=== PATIENT | female | born 1940 | race Caucasian/White ===

== ENCOUNTER → 2016-09-24 17:18 | Emergency (ER) | payer MEDICARE ==
[~2016-09-24 17:18] MED LIST: Tetan/Diph/Pertus SYR(Tdap)* 0.5 ML SYR(BOOSTRIX) use SYR IM ONE
[2016-09-24 17:28] VITALS: BP 202/93
--- NOTE | 2016-09-24 17:38 | UC ---
UC General HPI - HPI Summary HPI Summary: complaint of stepping on a coty nail with right foot today tetanus not UTD no bleeding or pain at this time pt and son states that whenever she is in a medical office her pulse and blood pressure increase - History of Current Complaint Chief Complaint: UCWounds Stated Complaint: STEPPED ON NAIL Time Seen by Provider: 09/24/16 17:24 Hx Obtained From: Patient - Allergy/Home Medications Allergies/Adverse Reactions: Allergies Allergy/AdvReac Type Severity Reaction Status Date / Time Unable to Obtain Allergy Verified 09/24/16 17:28 Home Medications: Home Medications Aspirin [Eql Aspirin Low Dose] 81 mg PO 09/24/16 [History] PMH/Surg Hx/FS Hx/Imm Hx Previously Healthy: Yes Cardiovascular History: Hypertension - Surgical History Surgical History: None - Family History Known Family History: Negative: Cardiac Disease, Hypertension, Diabetes - Social History Occupation: Retired Lives: With Family Alcohol Use: Rare Substance Use Type: None Smoking Status (MU): Heavy Every Day Tobacco Smoker Cessation Counseling: Patient Advised to Stop Review of Systems Constitutional: Negative Skin: Other - puncture woud right foot Eyes: Negative ENT: Negative Respiratory: Negative Cardiovascular: Negative Gastrointestinal: Negative Genitourinary: Negative Motor: Negative Neurovascular: Negative Musculoskeletal: Negative Neurological: Negative Psychological: Negative All Other Systems Reviewed And Are Negative: Yes Physical Exam Triage Information Reviewed: Yes Appearance: No Pain Distress, Well-Nourished, Thin Vital Signs: Initial Vital Signs Temp 98.9 F 09/24/16 17:24 Pulse 120 09/24/16 17:24 Resp 18 09/24/16 17:24 BP 202/93 09/24/16 17:24 Pulse Ox 95 09/24/16 17:24 Vital Signs Reviewed: Yes Eyes: Positive: Conjunctiva Clear ENT: Positive: Pharynx normal, TMs normal Neck: Positive: No Lymphadenopathy Respiratory: Positive: Lungs clear, Normal breath sounds, No respiratory distress, No accessory muscle use Cardiovascular: Positive: No Murmur, Pulses Normal, Tachycardia Musculoskeletal: Positive: No Edema Neurological: Positive: Alert Psychological Exam: Normal Skin: Positive: Other - right foot- puncture wound over 1st metatarsal joint- no erythema or exudate Course/Dx - Course Course Of Treatment: exam completed. VSS after sitting in room for 20 minutes - Differential Dx - Multi-Symptom Differential Diagnoses: Other - puncture wound, need for tetanus immunization Provider Diagnoses: puncture wound Discharge - Discharge Plan Condition: Stable Disposition: HOME Patient Education Materials: Puncture Wound (ED), Diphtheria/Acellular Pertussis/Tetanus Booster Vaccine (By injection) Referrals: [facility] – [place] [facility] [Outside] Additional Instructions: Increase fluids and rest Take acetaminophen for fever or pain Please review your discharge instructions. If your symptoms do not improve please call your primary care provider or return to urgent care. Your blood pressure is elevated. Please contact your primary care provider within 1 -4 weeks for further evaluation.
== END | disposition home or self-care (01) ==
LOC: UCEAST 17:18
DX: S91.331A Puncture wound without foreign body, right foot, initial encounter (principal); W22.8XXA Striking against or struck by other objects, initial encounter; Y93.9 Activity, unspecified; Y92.9 Unspecified place or not applicable; Y99.9 Unspecified external cause status; Z23 Encounter for immunization; I10 Essential (primary) hypertension; Z72.0 Tobacco use
CPT/HCPCS: 90471; 90715; 99201; G0463

== ENCOUNTER 2017-07-25 16:23 | Inpatient (IN) | payer MEDICARE ==
--- NOTE | 2017-07-25 16:52 | RAD ---
HISTORY: Shortness of breath COMPARISONS: None VIEWS: 1: frontal portable view of the chest at 4:46 PM FINDINGS: LINES AND TUBES: None. CARDIOMEDIASTINAL SILHOUETTE: The cardiac silhouette is mildly enlarged. The cardiomediastinal silhouette is otherwise normal for portable technique. PLEURA: The costophrenic angles are sharp. No pleural abnormalities are noted. LUNG PARENCHYMA: There is patchy alveolar opacification lung bases bilaterally. There is prominence of the central pulmonary vessels which appear. ABDOMEN: The upper abdomen is clear. There is no subphrenic gas. BONES AND SOFT TISSUES: No bone or soft tissue abnormalities are noted. IMPRESSION: PULMONARY VASCULAR CONGESTION WITH MILD CARDIOMEGALY AND BIBASILAR ATELECTASIS VERSUS EARLY CONSOLIDATION.
[2017-07-25 17:03] LABS: ABS Basophils 0 10^3/ul (0-0.2); ABS Eosinophils 0 10^3/ul (0-0.6); ABS Lymphocytes 1.5 10^3/ul (1.0-4.8); ABS Monocytes 0.5 10^3/ul (0-0.8); ABS Neutrophils 6.5 10^3/ul (1.5-7.7); ABS Nucleated RBC 0 10^3/ul; Eosinophil % 0.4 % (0-6); Hematocrit 44 % (35-47); Hemoglobin 14.6 g/dl (12.0-16.0); Lymphocyte % 17.4 % (25-47); Mean Corpuscular HGB Conc 33 g/dl (31-36); Mean Corpuscular Hemoglobin 31 pg (27-31); Mean Corpuscular Volume 93 fL (80-97); Mean Platelet Volume 7.7 um3 (7.4-10.4); Nucleated Red Blood Cells % 0.1; Platelet Count 199 10^3/ul (150-450); Red Blood Count 4.67 10^6/ul (4.0-5.4); Red Cell Distribution Width 15 % (10.5-15); White Blood Count 8.6 10^3/ul (3.5-10.8)
[2017-07-25 17:26] LABS: EGFR Non-African American 45.8 (>60)
[2017-07-25] MEDS ORDERED: Nitroglycerin 2% OINT* 1 GM PAK TOPICAL ONE (18:20)
[2017-07-25] MEDS ORDERED: Furosemide IV* 10 MG/ML VIAL (40 MG) IV SLOW PU ONE (18:20)
[2017-07-25] MEDS ORDERED: Acetaminophen TAB* 325 MG PO PRN (18:51)
[2017-07-25] MEDS ORDERED: Al Hydrox/Mg Hydrox/Simet LIQ* 30 ML UDC PO PRN (18:51)
[2017-07-25] MEDS: Metoprolol Tartrate TAB* 25 MG PO SCH (21:24)
[2017-07-25] MEDS: Enalapril TAB* 5 MG PO SCH (21:25)
[2017-07-25] MEDS: Heparin VIAL(*) 5000 UNITS/ML VIAL (FIVE THOUSAND) SUBCUT SCH (21:28)
--- NOTE | 2017-07-25 21:28 | HP ---
HISTORY AND PHYSICAL: DATE OF ADMISSION: 07/25/17 TIME OF ADMISSION: 7:00 p.m. PRIMARY CARE PHYSICIAN: None. CHIEF COMPLAINT: Feet swelling. HISTORY OF PRESENT ILLNESS: This is a 76-year-old female with no known past medical history, who has not seen a PCP for 15 years. She went to the [facility] today for feet edema that has been going on for 2 weeks and she was sent to the emergency department. She states that she had been in her usual state of health until 2 weeks ago when she had bilateral lower extremity edema from her toes to her ankles and leg heaviness. She does weigh herself regularly and so she has not gained any weight. Her usual weight is approximately 140 pounds and that has been stable recently. She states she is able to sleep on just 1 pillow and that has also not changed recently. She has never been limited in her exercise capacity by shortness of breath and that also has not changed over the past 2 weeks, however, she does note that she has had decreased ability to walk for distances due to leg heaviness, however, never due to shortness of breath. She denies having chest pain in the past 2 weeks nor has she ever had chest pain with exertion even prior to 2 weeks ago. She does believe that she had a viral illness approximately 2 weeks ago that was associated with some lethargy and her , she believes is ill now, however, she denies any recent cough, fevers, runny nose, congestion, headache, abdominal bloating, nausea or vomiting. PAST MEDICAL HISTORY: 1. Anxiety. 2. Polio at age 12. HOME MEDICATIONS: Aspirin 81 mg at bedtime. FAMILY HISTORY: She believes her mom had heart troubles, but lived until her late 70s. SOCIAL HISTORY: She lives in [place] with her . She is a current smoker and smokes 1 pack a day and has done so for the past 30 years. She works at the [employer]. REVIEW OF SYSTEMS: As per the HPI, the remaining 12-point review of systems is negative. PHYSICAL EXAMINATION GENERAL: Alert, well-appearing female, in no distress. I note her respiratory rate to be closer to be 20, and not 30. She is able to speak in full sentences and is using no accessory respiratory muscles. VITAL SIGNS: Temperature 98.8 degrees, heart rate 115, respiratory rate 30, pulse ox 97% on 2 L, and blood pressure 169/93. HEENT: Pupils are equal, round, and reactive to light, shows no nystagmus. Her oral mucosa is moist. She has no pharyngeal exudates; however, she does have a purple macule on the posterior pharynx. NECK: I cannot see JVP elevation at 45 degrees. She has no cervical or supraclavicular lymphadenopathy. She has a 2-cm fungating mass over her left clavicle with an excoriated surface. CHEST: Tachycardic. No murmurs. No appreciable S3 or S4. PMI is laterally displaced. LUNGS: Without rhonchi or rales. ABDOMEN: Soft, nontender, and nondistended. Liver is nonpalpable. EXTREMITIES: She has 1+ lower extremity edema on the dorsal feet and to the mid linares. DIAGNOSTIC STUDIES/LAB DATA: Sodium 137, potassium 3.8, chloride 100, bicarb 25, anion gap 12, BUN 30, creatinine 1.15, glucose 132, lactate 1.6, AST 44, ALT 50, alk phos 58, troponin 0.07. Chest x-ray: Pulmonary vascular congestion with mild cardiomegaly, and bibasilar atelectasis versus early consolidation. EKG: Sinus tachycardia at 117, left axis deviation, LVH is noted. T-wave inversions in V5 and V6. ASSESSMENT AND PLAN: This is a 76-year-old female, who has not seen a physician in 15 years and has been healthy to her knowledge, who presents with 2 weeks of feet edema and is found to have pulmonary vascular congestion and elevated troponin, elevated blood pressure, sinus tachycardia, and hypoxia. 1. Bilateral lower extremity edema. Based on her constellation of symptoms on presentation, I suspect that this is most likely a reflection of volume overload in the setting of new onset heart failure. She also has some pulmonary vascular congestion that likely coincides with heart failure as well as what seems like untreated hypertension, which may have been the underlying etiology of her syndrome of heart failure. She just received Lasix in the emergency department. I am going to continue IV Lasix and start a low-dose CHAU inhibitor for afterload reduction as well as a beta-garcia for my suspicion of new onset heart failure. 2. Troponin elevation. It is elevated to 0.07. However, she notes no chest pain at any time. I suspect this troponin elevation is from volume overload as well as hypertensive urgency causing a demand and I will continue to trend her troponins over the night. 3. Acute hypoxic respiratory failure. This is most likely related to decompensated heart failure and pulmonary edema as seen on her chest x-ray. At this point, she is stable on 2 L and we will try to wean this down as able as she is diuresed. 4. Hypertensive urgency. As mentioned above, I am starting her on a low-dose CHAU inhibitor and low-dose beta-garcia. I would like to remove the nitro patch that she currently has on. 5. Hyponatremia. This appears to be hypervolemic hyponatremia and I would expect it to improve with IV diuresis. 6. Left clavicular mass. This is quite concerning for basal cell carcinoma to me. This should be followed up closely as an outpatient. 7. Acute kidney injury. I suspect this is related to vascular congestion and should also improve with diuresis. 8. Tobacco abuse. Nicotine inhaler p.r.n. 9. DVT prophylaxis. Heparin subcutaneously. 10. Diet. Unrestricted. 11. Code status. Full code. 12. Admit to telemetry. [id number] #: [id number] MTDD
[2017-07-26] MEDS ORDERED: Mouth Piece, Nicotine* 1 EACH CARTRIDGE INH ONE (02:00)
[2017-07-26] MEDS ORDERED: Nicotine Inhaler* 10 MG AMP Q2H PRN CRAVING INH (02:00)
[2017-07-26] MEDS: Metoprolol Tartrate TAB* 25 MG PO SCH ×3 (03:43→20:50)
[2017-07-26] MEDS: Heparin VIAL(*) 5000 UNITS/ML VIAL (FIVE THOUSAND) SUBCUT SCH ×3 (05:53→20:53)
[2017-07-26 06:09] LABS: ABS Basophils 0 10^3/ul (0-0.2); ABS Eosinophils 0.1 10^3/ul (0-0.6); ABS Lymphocytes 1.3 10^3/ul (1.0-4.8); ABS Monocytes 0.5 10^3/ul (0-0.8); ABS Neutrophils 6.4 10^3/ul (1.5-7.7); ABS Nucleated RBC 0 10^3/ul; Eosinophil % 0.8 % (0-6); Hematocrit 43 % (35-47); Hemoglobin 14.1 g/dl (12.0-16.0); Lymphocyte % 15.6 % (25-47); Mean Corpuscular HGB Conc 33 g/dl (31-36); Mean Corpuscular Hemoglobin 31 pg (27-31); Mean Corpuscular Volume 94 fL (80-97); Mean Platelet Volume 7.4 um3 (7.4-10.4); Nucleated Red Blood Cells % 0; Platelet Count 185 10^3/ul (150-450); Red Blood Count 4.53 10^6/ul (4.0-5.4); Red Cell Distribution Width 15 % (10.5-15); White Blood Count 8.2 10^3/ul (3.5-10.8)
[2017-07-26 06:23] LABS: EGFR Non-African American 39.4 (>60)
[2017-07-26] MEDS: Enalapril TAB* 5 MG PO SCH ×2 (09:29→20:51)
[2017-07-26] MEDS: Furosemide IV* 10 MG/ML VIAL (40 MG) IV SCH (09:30)
--- NOTE | 2017-07-26 09:44 | RAD ---
INDICATION: Pain and swelling. COMPARISON: None TECHNIQUE: Duplex interrogation of the both lower extremities was performed. FINDINGS: Deep veins: The common femoral, great saphenous, profunda femoris, proximal, mid, and distal deep femoral, popliteal, posterior tibial, and peroneal veins are patent bilaterally. There is normal compressibility, augmentation, and phasic flow. Superficial veins: There are no findings of superficial thrombophlebitis. Popliteal fossa:There is a complex 6.5 x 2.3 x 3.4 similar right popliteal cyst. There is no left popliteal cyst. Soft tissues:There are no soft tissue abnormalities. IMPRESSION: A BILATERAL EXAMINATION DEMONSTRATES NO EVIDENCE OF ACUTE DEEP VENOUS THROMBOSIS. THERE IS A RIGHT-SIDED POPLITEAL CYST.
--- NOTE | 2017-07-26 13:08 | ECHO ---
Patient: PABLO MOISE [facility] Rec#: [id number] : 1940 Date: 07/26/2017 Age: 76y Height: 162.56 cm / 64.0 in Weight: 61.69 kg / 136.0 lbs Sex: F BSA: 1.66 Room#: [facility] Admit Date#: 07/25/2017 Type: Inpatient Referring: Waleska Cheema MD Reading: Deanna Perez MD Clinical Radiologist: Mar Vásquez [facility] Transthoracic Echocardiogram Indication: CHF BP: 126/83 HR: 100 Rhythm: NSR Findings History: Recent lower extremity edema,smoker. Technical Comments: The study is technically limited due to the patient's smoking history. Completed at 1208. Left Ventricle: The left ventricular chamber size is normal. Mild concentric left ventricular hypertrophy is observed. There is global hypokinesis of the left ventricle with minor regional variation. There is severely decreased left ventricular systolic function. The estimated ejection fraction is 25-30%. Abnormal left ventricular diastolic function is observed.summation of E and A waves. Left Atrium: The left atrium is mildly dilated. Right Ventricle: Moderator Band present. The right ventricle is mildly dilated. The right ventricular global systolic function is severely reduced. Right Atrium: The right atrium is mildly dilated. Aortic Valve: The aortic valve structure is not well visualized. There is no evidence of aortic regurgitation. There is no evidence of aortic stenosis. Mitral Valve: The mitral valve leaflets are mildly thickened. Mild mitral leaflet calcification is visualized. Mitral valve leaflet mobility is moderately restricted. There is mild mitral regurgitation. Possibly greater. The mitral regurgitant jet is laterally directed.No color placed in images that would determine in posteriorly directed as well (long axis and 3 chamber views). There is no evidence of mitral stenosis. Tricuspid Valve: The tricuspid valve leaflets are normal. There is mild tricuspid regurgitation. The right ventricular systolic pressure is estimated at 46 mmHg. There is evidence of moderate pulmonary hypertension. There is no tricuspid stenosis. Pulmonic Valve: The pulmonic valve appears normal. There is no evidence of pulmonic regurgitation. There is no pulmonic stenosis. Pericardium: A trivial pericardial effusion is visualized. There are no signs of significant hemodynamic compromise. Aorta: There is no dilatation of the ascending aorta. The aortic arch is not well visualized. There is no dilation of the aortic root. Pulmonary Artery: The main pulmonary artery appears normal. Venous: The inferior vena cava is dilated. There is no change in the dimension of the inferior vena cava with respiration consistent with markedly increased right atrial pressure. Conclusions The study is technically limited due to the patient's smoking history. Mild concentric left ventricular hypertrophy is observed. There is global hypokinesis of the left ventricle with minor regional variation. The estimated ejection fraction is 25-30%. Abnormal left ventricular diastolic function is observed. The right ventricular global systolic function is severely reduced. There is mild mitral regurgitation, eccentric jet, possibly greater. There is mild tricuspid regurgitation. PA pressure is estimated at 46 mmHg. No prior study to compare. Measurements Name Value Normal Range RVIDd (AP) 2D 2.9 cm (0.9 - 2.6) RVDdMajor (2D) 3.4 cm (2.2 - 4.4) RAd ISD 4CH 5.8 cm (3.4 - 4.9) RA (A4C)W 3.5 cm (2.9 - 4.6) IVSd (2D) 1.2 cm (0.6 - 1) LVPWd (2D) 1.2 cm (0.6 - 1) LVIDd (2D) 5.4 cm (3.6 - 5.4) LVIDs (2D) 4.8 cm - LV FS (2D) 13 % (25 - 45) Aortic Annulus 1.9 cm (1.4 - 2.6) Ao root diameter (2D) 2.6 cm (2.1 - 3.5) Ascending Ao 2.8 cm (2.1 - 3.4) LA dimension (AP) 2D 4.3 cm (2.3 - 3.8) LAd ISD 4CH 6.4 cm (2.9 - 5.3) LA ISD 4CH W 4 cm (2.5 - 4.5) Name Value Normal Range MV E-wave Vmax 0.7 m/sec - MV deceleration time 81 msec - MV A-wave Vmax 0.9 m/sec - MV E:A ratio 0.73 ratio - LV septal e' Vmax 0.02 m/sec - LV lateral e' Vmax 0.03 m/sec - LV E:e' septal ratio 35 ratio - LV E:e' lateral ratio 23.33 ratio - Name Value Normal Range AV Vmax 1.1 m/sec - AV VTI 17.6 cm - AV peak gradient 4.68 mmHg - AV mean gradient 2.14 mmHg - LVOT Vmax 0.6 m/sec - LVOT VTI 8.5 cm - LVOT peak gradient 1.5 mmHg - LVOT mean gradient 0.63 mmHg - Name Value Normal Range TR Vmax 2.8 m/sec - TR peak gradient 31 mmHg - RAP 15 mmHg - RVSP 46 mmHg - IVC diameter 2.8 cm - Name Value Normal Range PV Vmax 0.4 m/sec - PV peak gradient 0.55 mmHg -
[2017-07-26 18:18] LABS: INR 0.95 (0.77-1.02)
--- NOTE | 2017-07-26 21:37 | CONS ---
CARDIOLOGY CONSULTATION: DATE OF CONSULT: 07/26/17 REASON FOR CONSULTATION: Newly diagnosed cardiomyopathy and elevated troponins. HISTORY OF PRESENT ILLNESS: Mrs. Boss is a 76-year-old smoker, who has not been to a doctor in 15 years. The patient was seen in the presence of her daughter. The patient estimates for about 6 months, she has not felt as well as her baseline. About 2 or 3 weeks ago, her had flu symptoms and she said she just felt very tired. She denied rhinorrhea, coughing, sputum production, fevers, chills, myalgias, diarrhea, or constipation, just fatigue. Her did have multiple flu-like signs. More recently over the last 1 to 2 weeks, the patient has noted her legs have been progressively swollen. She denies feeling winded, but her daughter states she was tachypneic talking to her on the phone. The patient has had diuretics in the hospital and her leg swelling has improved overnight. She has been on Oxygen for low O2 saturations. The patient denies orthopnea, sleeps on her stomach, no PND history. An echocardiogram done today showed an ejection fraction of 25% to 30% and her right ventricle was also dilated with severe right ventricular hypokinesis. Her valve function was significant for at least mild mitral insufficiency and her PA pressure was estimated at 46 mmHg. PAST MEDICAL HISTORY: The patient has a past medical history of active smoking , history of anxiety. She had polio at age 12. MEDICATIONS: She had no outpatient medications. Inpatient medications include: 1. Tylenol p.r.n. 2. Maalox p.r.n. 3. Vasotec 10 mg b.i.d. 4. Lasix 40 mg a day. 5. Subcutaneous heparin. 6. Lopressor 12.5 mg q.8 hours. 7. Nicotine inhaler. FAMILY HISTORY: Significant in that she has a brother, who just had a heart attack very recently. Her mother had a history of stroke in her 70s. SOCIAL HISTORY: Significant that she is an active smoker, a pack a day. She denies any alcohol intake. She has a supportive daughter, lives in [place] with her . 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 REVIEW OF SYSTEMS: See history of present illness. She sleeps flat on her stomach. No orthopnea. No PND. Chronic smoker's cough. Two week history of lower extremity edema, approximately 3 weeks ago increased in fatigue. She denies awareness of snoring or not breathing. She denies weight gain or weight loss, diarrhea or constipation, hematuria or dysuria. Although, she just has not felt well for the last 6 months, she has been able to work at [employer] at her usual level, although it sounds like it is not a job with high physical stress. All other review of systems was unremarkable. The patient denies pain in her legs walking, but they fatigue easily. PHYSICAL EXAM: The patient is 5 feet 4 inches, weighs 136 pounds with a BMI of 33. Vitals on arrival: Blood pressure 173/106 and a pulse of 115. Currently after diuresis, blood pressure 123/63, pulse is 85, oxygen saturation 88% on room air, 94% on 2 L nasal cannula, respiratory rate is 18. General Appearance : Chronically ill-appearing woman, oxygen prongs on. She was lying at 5 degrees with one pillow, appeared comfortable. Psychologically, pleasant and cooperative. Neurologically, awake, alert, and oriented to person, place, and time. Cranial nerves II through XII intact. Grossly normal sensory and motor function in the upper and lower extremities as examined in the bed. Skin: Changes consistent with age and long history of smoking. No cyanosis. She did have a skin lesion above the left clavicle about the size of a quarter of concern for possible malignancy versus dysplastic nevi. HEENT: Pupils are equal and round. Mucous membranes moist. Neck: Without thyromegaly or lymphadenopathy appreciated. Palpable carotid pulses without audible bruits. Breath sounds showed decreased inspiration, diffuse wheezing. Coronary: S1, S2 regular with distant heart sounds and soft systolic murmur heard at the left lower sternal border. Abdomen: Flat, active bowel sounds, soft, nontender. No hepatosplenomegaly or masses. No audible bruits. Radial pulses were strong and symmetrical. She has easily palpable femoral pulses free of bruits, but distal extremities are hard to get pulses. Distal pulses hard to palpate above the distal extremities are lukewarm with minimal edema. DIAGNOSTIC STUDIES/LAB DATA: Labs: White count 9.2, hemoglobin 14, hematocrit 43, platelets 185. Sodium 142, potassium 3.4, chloride 102, bicarb 33, BUN 34 up from 30 on admission and creatinine 1.31, increased from 1.15 on admission. Hemoglobin A1c is 6.2. AST 47, ALT 51. Troponin #1 0.08, troponin #2 0.08, troponin #3 0.07. BNP 3413. Total cholesterol 129, triglycerides 120, LDL cholesterol 78, HDL cholesterol 27. Total protein 5.8 and albumin 3.3. Serology for influenza is negative. Studies: The patient's chest x-ray on admission showed congestive heart failure and mild cardiomegaly. EKG on admission, 07/25/17, shows sinus tachycardia 117 beats a minute, QRS axis of 0, normal AV and IV conduction times, left ventricular hypertrophy by voltage criteria with ST and T-wave changes in the lateral leads consistent with repolarization changes of LVH. Repeat EKG, 07/26/17, shows normal sinus rhythm, 96 beats a minute, QRS axis of 0, normal AV and IV conduction times. LVH with persistent repolarization changes, not significantly changed. Echocardiogram as above showing left ventricular hypertrophy, ejection fraction 25% to 30%, severe RV hypokinesis, PA pressure of 46 mmHg, mild mitral and mild tricuspid insufficiency. Venous Doppler done today, 07/26/17, showed no evidence of DVT, but did show a right-sided popliteal cyst. IMPRESSION AND PLAN: In summary, Leticia Boss is a 76-year-old woman admitted with progressive swelling of the legs bilaterally and tachypnea noted by her daughter, found to be in biventricular failure and found to have both ventricles with severely reduced systolic function of unknown duration and unknown etiology. 1. The patient has a small bump in troponins, EKG consistent with left ventricular hypertrophy and repolarization changes and no clear evidence of acute ischemia by EKG. 2. The patient has atherosclerotic risk of smoking and family history of coronary and vascular disease, and evidenced that she may have had longstanding hypertension that was not treated as she did not seek physician care. 3. For the patient's cardiomyopathy, I have recommended a cardiac catheterization to determine if it is ischemic versus nonischemic, and the patient and her daughter amenable. I discussed the procedure in details with them. In terms of managing this, I agree with addition of an CHAU inhibitor, I agree with the diuretics she had one time yesterday (40 mg IV x1), going forward she may benefit from lower dose diuretics perhaps just Aldactone or Lasix alternating with Aldactone, the Aldactone has potential benefits for the cardiomyopathy. 4. I agree with beta garcia additioin. 5. For the patient's history of smoking and pulmonary problem, she likely has chronic obstructive pulmonary disease and some of her wheezing could be bronchospasm. I will leave it to the hospitalist, but some of her hypoxia may be related to chronic obstructive pulmonary disease and this should be treated as well even with her cardiomyopathy and probable underlying coronary disease. Smoking cessation and the importance of this was discussed with the patient in front of her daughter. 6. Renal insufficiency noted, we will need to follow carefully with the initiation of CHAU inhibitors and addition of diuretics. 7. Additional recommendation will be made after we get the results of her cardiac catheterization. I did discuss with the patient and her daughter the potential risk for life-threatening dysrhythmias with poor ventricular function and potential future evaluation for defibrillators. Thank you for allowing me to assist in this nice patient's care. [id number]/[id number] #: [id number] MELVIN
--- NOTE | 2017-07-26 21:57 | PN ---
Subjective Date of Service: 07/26/17 Interval History: Fall noted overnight due to her trying to ambulate independently. Now on bed alarm. She feels better and is anxious to go home. Says her leg swelling is resolved. Objective Active Medications: Acetaminophen (Tylenol Tab*) 650 mg PO Q4H PRN PRN Reason: FEVER/PAIN Al Hydrox/Mg Hydrox/Simethicone (Maalox Plus*) 30 ml PO Q6H PRN PRN Reason: INDIGESTION Enalapril Maleate (Vasotec Tab*) 10 mg PO BID [facility] Last Admin: 07/26/17 20:51 Dose: 10 mg Furosemide (Lasix Iv*) 40 mg IV DAILY [facility] Last Admin: 07/26/17 09:30 Dose: 40 mg Heparin Sodium (Porcine) (Heparin Vial(*)) 5,000 units SUBCUT Q8HR [facility] Last Admin: 07/26/17 20:53 Dose: 5,000 units Metoprolol Tartrate (Lopressor Tab*) 12.5 mg PO Q8H [facility] Last Admin: 07/26/17 20:50 Dose: 12.5 mg Nicotine (Nicotine Inhaler*) 10 mg INH Q2H PRN PRN Reason: CRAVING Last Admin: 07/26/17 03:43 Dose: 10 mg Vital Signs - 8 hr 07/26/17 07/26/17 07/26/17 13:55 14:45 15:28 Temperature 98.3 F Pulse Rate 81 Respiratory 19 26 Rate Blood Pressure 127/70 (mmHg) O2 Sat by Pulse 94 94 95 Oximetry 07/26/17 19:20 Temperature 98.4 F Pulse Rate 90 Respiratory 26 Rate Blood Pressure 101/71 (mmHg) O2 Sat by Pulse 97 Oximetry Oxygen Devices in Use Now: None Appearance: alert, tired appearing, nontoxic, breathing comfortably Eyes: No Scleral Icterus Ears/Nose/Mouth/Throat: NL Teeth, Lips, Gums Neck: - - JVP 14cm Respiratory: Symmetrical Chest Expansion and Respiratory Effort Cardiovascular: - - edema improved, trace in ankles Abdominal: NL Sounds; No Tenderness; No Distention Lymphatic: No Cervical Adenopathy Skin: No Rash or Ulcers Neurological: Alert and Oriented x 3 Result Diagrams: 07/26/17 05:40 07/26/17 05:40 Microbiology and Other Data: Microbiology 07/25/17 19:55 Influenza Types A,B Antigen ([facility]) - Final Nasal Specimen received for Influenza A/B Molecular testing Assess/Plan/Problems-Billing Assessment: 76 yo female with no known medical history who had not seen a doctor for 15 years who presented with leg swelling, is now found to have a depressed ejection fraction. - Patient Problems (1) Acute systolic (congestive) heart failure Current Visit: Yes Status: Acute Code(s): I50.21 - ACUTE SYSTOLIC ( CONGESTIVE) HEART FAILURE SNOMED Code(s): 431522341 Comment: Differential is broad and includes hypertensive heart disease, ischemic cardiomyopathy, viral cardiomyopathy, and stress-induced cardiomyopathy Cardiology consulted for consideration of [facility] Continue CHAU and BB and increase doses as able Continue diuresis May need AICD vs. life vest; defer to cardiology (2) Acute respiratory failure with hypoxia Current Visit: Yes Status: Acute Code(s): J96.01 - ACUTE RESPIRATORY FAILURE WITH HYPOXIA SNOMED Code(s): 71610076 Comment: likely due to pulmonary edema, continue diuresis she does have long smoking history and may have some underlying obstructive lung disease; nebs prn (3) Tobacco abuse Current Visit: Yes Status: Acute Code(s): Z72.0 - TOBACCO USE SNOMED Code( s): 538800696 Comment: ongoing; 30 pack year history Status and Disposition: inpatient for [facility] tomrorow
--- NOTE | 2017-07-26 22:18 | PTEDU ---
Patient Name: PABLO MOISE PABLO MOISE selected video: Fall Prevention in the Hospital to view on 07/26/2017 at 10:17:24 PM fr hardy [id number]
--- NOTE | 2017-07-26 22:27 | PTEDU ---
Patient Name: PABLO MOISE SUMAPABLO selected video: Cardiac Catheterization to view on 07/26/2017 at 10:26:42 PM from [facility] [id number]
[2017-07-27] MEDS: Heparin VIAL(*) 5000 UNITS/ML VIAL (FIVE THOUSAND) SUBCUT SCH ×3 (05:20→21:52)
[2017-07-27] MEDS: Metoprolol Tartrate TAB* 25 MG PO SCH ×2 (05:20→11:54)
[2017-07-27 05:45] LABS: EGFR Non-African American 41.2 (>60)
--- NOTE | 2017-07-27 07:58 | RAD ---
INDICATION: CHF. Short of breath COMPARISON: July 25, 2017 TECHNIQUE: PA and lateral dual-energy views were obtained. FINDINGS: Bones/Soft Tissues: There are no acute bony findings. Cardiomediastinal: The chronic silhouette is enlarged. Interstitium is prominent consistent with interstitial edema. Lungs: There is mild bibasilar hypoventilation. There is no consolidation.. Pleura: Small bilateral pleural effusions. Other: None IMPRESSION: VASCULAR CONGESTION WITH SMALL BILATERAL PLEURAL EFFUSIONS . THERE IS NO APPRECIABLE CHANGE.
[2017-07-27] MEDS: Furosemide IV* 10 MG/ML VIAL (40 MG) IV SCH ×2 (08:37→09:16)
[2017-07-27] MEDS: Enalapril TAB* 5 MG PO SCH ×2 (08:40→21:51)
[2017-07-27] MEDS ORDERED: Potassium Chlor TAB* 20 MEQ TAB.ER PO ONE (10:41)
[2017-07-27] MEDS ORDERED: NS 0.9% 1000 ML* 1,000 ML IV SCH ×2 (10:45→13:00)
[2017-07-27] MEDS ORDERED: Heparin 2 UNITS/ML IVPREMIX* 2,000 ML IV ONE ×2 (11:08→11:32)
[2017-07-27] MEDS ORDERED: Lidocaine 1% INJ* 10 MG/ML 30 ML SDV ONE ×2 (11:08→12:43)
[2017-07-27] MEDS ORDERED: Iodixanol* (CONTRAST) 320 MG/ML 100 ML SDV ONE (11:10)
[2017-07-27] MEDS ORDERED: Midazolam* 1 MG/ML 10 ML VIAL (10 MG) ONE (11:31)
[2017-07-27] MEDS ORDERED: fentaNYL* 50 MCG/ML 2 ML VIAL (100 MCG VIAL) ONE (11:32)
[2017-07-27] MEDS ORDERED: Heparin(*) 1000 UNIT/ML 10 ML VIAL CATH LAB IV ONE (11:32)
[2017-07-27] MEDS ORDERED: nitroGLYCERIN DRIP* 25,000 MCG/250 ML BTL ONE (11:32)
[2017-07-27] MEDS ORDERED: VERAPAMIL 2.5 MG/ML 2 ML VIAL ** 5 mg/2 ml ONE (11:32)
[2017-07-27] MEDS ORDERED: Adenosine* 3 MG/ML VIAL ONE (12:14)
[2017-07-27] MEDS ORDERED: Furosemide IV* 10 MG/ML VIAL (40 MG) ONE (12:47)
--- NOTE | 2017-07-27 15:31 | PN ---
Subjective Date of Service: 07/27/17 Interval History: Ms. Boss reports feeling well this afternoon. She states that she feels much better than on arrival. She denies chest pain, SOB, nausea, or abdominal pain. She is tolerating oral intake well. Objective Active Medications: Acetaminophen (Tylenol Tab*) 650 mg PO Q4H PRN Al Hydrox/Mg Hydrox/Simethicone (Maalox Plus*) 30 ml PO Q6H PRN Carvedilol (Coreg Tab*) 6.25 mg PO BID [facility] Enalapril Maleate (Vasotec Tab*) 10 mg PO BID [facility] Furosemide (Lasix Iv*) 40 mg IV DAILY [facility] Heparin Sodium (Porcine) (Heparin Vial(*)) 5,000 units SUBCUT Q8HR [facility] Nicotine (Nicotine Inhaler*) 10 mg INH Q2H PRN Vital Signs: Temp Pulse Resp BP Pulse Ox 97.6 F 94 18 94/67 100 07/27/17 16:59 07/27/17 16:59 07/27/17 16:59 07/27/17 16:59 07/27/17 16:59 Oxygen Devices in Use Now: Nasal Cannula Appearance: Elderly female sitting up in bed in NAD Eyes: No Scleral Icterus Ears/Nose/Mouth/Throat: Mucous Membranes Moist Neck: Trachea Midline Respiratory: Symmetrical Chest Expansion and Respiratory Effort, Clear to Auscultation Cardiovascular: NL Sounds; No Murmurs; No JVD, No Edema Abdominal: NL Sounds; No Tenderness; No Distention Lymphatic: No Cervical Adenopathy Extremities: No Edema Skin: No Rash or Ulcers Neurological: Alert and Oriented x 3, NL Muscle Strength and Tone Nutrition: Taking PO's Result Diagrams: 07/26/17 05:40 07/27/17 05:21 Microbiology and Other Data: Microbiology 07/25/17 19:55 Influenza Types A,B Antigen ([facility]) - Final Nasal Specimen received for Influenza A/B Molecular testing Assess/Plan/Problems-Billing Assessment: Ms. Boss is a 76 yo female with no known medical history who had not seen a doctor for 15 years who presented with leg swelling, is now found to have a depressed ejection fraction. - Patient Problems (1) Acute systolic (congestive) heart failure Comment: - Edema resolved with diuresis. - Appreciate cardiology consultation. Cardiac cath without significant CAD, nonischemic cardiomyopathy. Differential is broad and includes hypertensive heart disease, viral cardiomyopathy, and stress-induced cardiomyopathy - Continue CHAU and BB and increase doses as able, BP has been low today. - Continue diuresis - May need AICD vs. life vest; defer to cardiology (2) Acute kidney injury Comment: - BUN/Creatinine improved today. - Likely due to systolic CHF and poor forward flow. - Continue lasix but monitor closely. (3) Acute respiratory failure with hypoxia Comment: - Episode of hypoxia after cardiac cath, resolved with lasix. - Likely due to pulmonary edema, continue diuresis. - She does have long smoking history and may have some underlying obstructive lung disease. Continue nebs prn. (4) Tobacco abuse Comment: - ongoing; 30 pack year history (5) DVT prophylaxis Comment: - Heparin SQ. (6) Full code status Comment: Status and Disposition: inpatient for [facility]
[2017-07-27] MEDS: Carvedilol TAB* 6.25 MG PO SCH ×2 (17:19→21:52)
[2017-07-28] MEDS: Heparin VIAL(*) 5000 UNITS/ML VIAL (FIVE THOUSAND) SUBCUT SCH ×3 (05:39→21:21)
[2017-07-28 06:29] LABS: EGFR Non-African American 40.8 (>60)
[2017-07-28] MEDS: Furosemide IV* 10 MG/ML VIAL (40 MG) IV SCH (08:43)
[2017-07-28] MEDS: Carvedilol TAB* 6.25 MG PO SCH ×2 (08:43→21:21)
[2017-07-28] MEDS: Enalapril TAB* 5 MG PO SCH ×2 (08:43→21:20)
[2017-07-28] MEDS: Spironolactone TAB* 25 MG PO SCH (08:43)
--- NOTE | 2017-07-28 09:40 | PN ---
Subjective Date of Service: 07/28/17 Interval History: f/u CHF denies any dyspnea at rest, no lightheadedness cath site examined by Dr. Mohan 02 sats dropped to 79% on room air. tele: NSR, no arrhytmias noted Medications Active Medications: Acetaminophen (Tylenol Tab*) 650 mg PO Q4H PRN PRN Reason: FEVER/PAIN Al Hydrox/Mg Hydrox/Simethicone (Maalox Plus*) 30 ml PO Q6H PRN PRN Reason: INDIGESTION Atorvastatin Calcium (Lipitor*) 40 mg PO 1700 [facility] Carvedilol (Coreg Tab*) 6.25 mg PO BID [facility] Last Admin: 07/28/17 08:43 Dose: 6.25 mg Enalapril Maleate (Vasotec Tab*) 10 mg PO BID [facility] Last Admin: 07/28/17 08:43 Dose: 10 mg Furosemide (Lasix Iv*) 40 mg IV DAILY [facility] Last Admin: 07/28/17 08:43 Dose: 40 mg Heparin Sodium (Porcine) (Heparin Vial(*)) 5,000 units SUBCUT Q8HR [facility] Last Admin: 07/28/17 05:39 Dose: 5,000 units Nicotine (Nicotine Inhaler*) 10 mg INH Q2H PRN PRN Reason: CRAVING Last Admin: 07/26/17 03:43 Dose: 10 mg Spironolactone (Aldactone Tab*) 25 mg PO DAILY [facility] Last Admin: 07/28/17 08:43 Dose: 25 mg Objective Vital Signs: Temp Pulse Resp BP Pulse Ox 97.9 F 76 20 101/59 92 07/28/17 07:27 07/28/17 07:27 07/28/17 07:27 07/28/17 07:27 07/28/17 07:27 Oxygen Devices in Use Now: Nasal Cannula Appearance: nad, pleasant Neck: Trachea Midline, - - uncertain jvp Respiratory: Symmetrical Chest Expansion and Respiratory Effort, - - bibasilar crackles Cardiovascular: RRR, - - no significant murmurs Abdominal: NL Sounds; No Tenderness; No Distention Extremities: No Edema Skin: No Rash or Ulcers Neurological: Alert and Oriented x 3 Laboratory Results: 07/26/17 05:40 07/28/17 05:42 INR (Anticoag Therapy) 0.95 (0.77-1.02) 07/26/17 17:39 APTT 27.3 seconds (26.0-36.3) 07/26/17 17:39 Total Bilirubin 0.70 mg/dL (0.2-1.0) 07/26/17 05:40 AST 47 U/L (13-39) H 07/26/17 05:40 ALT 51 U/L (7-52) 07/26/17 05:40 Alkaline Phosphatase 68 U/L (34-104) 07/26/17 05:40 B-Natriuretic Peptide 3413 pg/mL (-100) H 07/25/17 16:56 Total Protein 5.8 g/dL (6.4-8.9) L 07/26/17 05:40 Albumin 3.3 g/dL (3.2-5.2) 07/26/17 05:40 Globulin 2.5 g/dL (2-4) 07/26/17 05:40 Albumin/Globulin Ratio 1.3 (1-3) 07/26/17 05:40 Triglycerides 120 mg/dL 07/26/17 05:40 Cholesterol 129 mg/dL 07/26/17 05:40 LDL Cholesterol 78 mg/dL 07/26/17 05:40 HDL Cholesterol 27.5 mg/dL 07/26/17 05:40 07/25/17 07/25/17 19:52 23:43 Troponin I 0.08 H* 0.08 H* Diagnostic Imaging: Echo LVEf 25-30% Cath non-obstructive CAD and LAD lesion (FFR negative) Assessment/Plan Leticia Boss is a 76 year old woman, tobacco use, does not see doctor regular admitted with non-onset non-ischemic cardiomyopathy and systolic HF. - Continue IV diuresis - Continue statin - Continue coreg 6.25 mg po bid - Continue enalapril 10 mg po bid - Continue aldactone 25 mg po daily - Continue 02 supplementation Thank you for allowing me to participate in the cardiovascular care of this patient. Please do not hesitate to contact me with questions or concerns.
--- NOTE | 2017-07-28 10:14 | DCNOTE ---
Subjective Date of Service: 07/28/17 Interval History: Denies SOB, chest pain, cough. She states she sought medical care due to her swollen legs. She states her pedal edema has completely resolved. She states she does not eat much salt. Objective Active Medications: Acetaminophen (Tylenol Tab*) 650 mg PO Q4H PRN PRN Reason: FEVER/PAIN Al Hydrox/Mg Hydrox/Simethicone (Maalox Plus*) 30 ml PO Q6H PRN PRN Reason: INDIGESTION Atorvastatin Calcium (Lipitor*) 40 mg PO 1700 [facility] Carvedilol (Coreg Tab*) 6.25 mg PO BID [facility] Last Admin: 07/28/17 08:43 Dose: 6.25 mg Enalapril Maleate (Vasotec Tab*) 10 mg PO BID [facility] Last Admin: 07/28/17 08:43 Dose: 10 mg Heparin Sodium (Porcine) (Heparin Vial(*)) 5,000 units SUBCUT Q8HR [facility] Last Admin: 07/28/17 05:39 Dose: 5,000 units Nicotine (Nicotine Inhaler*) 10 mg INH Q2H PRN PRN Reason: CRAVING Last Admin: 07/26/17 03:43 Dose: 10 mg Potassium Chloride (Klor Con Er Tab*) 20 meq PO DAILY [facility] Potassium Chloride (Klor Con Er Tab*) 10 meq PO ONCE ONE Stop: 07/28/17 10:16 Spironolactone (Aldactone Tab*) 25 mg PO DAILY [facility] Last Admin: 07/28/17 08:43 Dose: 25 mg Vital Signs - 8 hr 07/28/17 07/28/17 03:04 07:27 Temperature 98.3 F 97.9 F Pulse Rate 83 76 Respiratory 16 20 Rate Blood Pressure 111/72 101/59 (mmHg) O2 Sat by Pulse 92 92 Oximetry Oxygen Devices in Use Now: None Appearance: Alert, in a chair. In good spirits. Looks comfortable. Eyes: No Scleral Icterus Neck: NL Appearance and Movements; NL JVP, No Thyroid Enlargement, Masses Respiratory: Symmetrical Chest Expansion and Respiratory Effort, Clear to Auscultation, Clear to Percussion Cardiovascular: NL Sounds; No Murmurs; No JVD, RRR, No Edema, - Extremities: No Edema, No Clubbing, Cyanosis, - Skin: No Rash or Ulcers, No Nodules or Sclerosis, - Neurological: Alert and Oriented x 3, NL Sensation Result Diagrams: 07/26/17 05:40 07/28/17 05:42 Microbiology and Other Data: Microbiology 07/25/17 19:55 Influenza Types A,B Antigen ([facility]) - Final Nasal Specimen received for Influenza A/B Molecular testing Assess/Plan/Problems-Billing Assessment: Ms. Boss is a 76 yo female with no known medical history who had not seen a doctor for 15 years who presented with leg swelling, is now found to have a depressed ejection fraction. - Patient Problems (1) Acute systolic (congestive) heart failure Current Visit: Yes Status: Acute Code(s): I50.21 - ACUTE SYSTOLIC ( CONGESTIVE) HEART FAILURE SNOMED Code(s): 301646462 Comment: Cardiac cath with nonobstructive CAD. Non-ischemic cardiomyopathy. Discharge on carvedilol, furosemide, potassium, enalapril. sprionolactone. Pt declined to have credit processor consult. Fup Dr. Perez. Pt advised to get a scal and weighherslef every day, bring in he weight recor to her doctor's appointment. (2) Tobacco abuse Current Visit: Yes Status: Acute Code(s): Z72.0 - TOBACCO USE SNOMED Code( s): 431844815 Comment: Pt advised to quit smoking and avoid second hand smoke. (3) Acute kidney injury Current Visit: Yes Status: Acute Code(s): N17.9 - ACUTE KIDNEY FAILURE, UNSPECIFIED SNOMED Code(s): 67123775 Comment: Small increase in creatinine c/w admission. She will be on lower dose furosemide at home. [facility] 07/31. Status and Disposition: Discharge now. Fup Dr. Perez. Needs PCP.
[2017-07-28] MEDS ORDERED: Potassium Chlor TAB* 10 MEQ TAB.ER PO ONE (10:15)
--- NOTE | 2017-07-28 10:20 | PN ---
Progress Note - Progress Note Date of Service: 07/28/17 Note: Time spent on discharge 50 minutes.
[2017-07-28] MEDS: Potassium Chlor TAB* 10 MEQ TAB.ER PO SCH (10:32)
--- NOTE | 2017-07-28 12:20 | RAD ---
INDICATION: Left leg weakness and numbness COMPARISON: None TECHNIQUE: Noncontrast axial source images were acquired from the skull base to the vertex. FINDINGS: Ventricles/sulci: The ventricles and cisterns are normal in size and configuration for age. Brain parenchyma: There is no focal parenchymal finding, evidence of intracranial mass, or intracranial mass effect. Intracranial hemorrhage:None. Extra-axial spaces: There are no abnormal extra axial fluid collections or evidence of extra-axial mass. Calvarium: There is no calvarial fracture or other calvarial abnormality. Scalp: There is no evidence of scalp or extracalvarial soft tissue abnormality. Paranasal sinuses/mastoid: The paranasal sinuses and mastoid air cells are clear. Other: None. IMPRESSION: No acute intracranial findings. Findings called to referring clinician at 1215 hours
[2017-07-28] MEDS ORDERED: Aspirin EC TAB* 325 MG PO ONE (12:57)
[2017-07-28] MEDS ORDERED: NS 0.9% 1000 ML* 250 ML IV ONE (13:02)
--- NOTE | 2017-07-28 15:16 | RAD ---
HISTORY: Left leg weakness calcified COMPARISONS: None TECHNIQUE: Multiple transverse and longitudinal ultrasound images were obtained of the carotid and vertebral arteries bilaterally, using grayscale, color Doppler, and spectral Doppler imaging. FINDINGS: Measurement of carotid stenosis is based on flow velocity parameters that correlate the residual internal carotid artery diameter with [place] Symptomatic Carotid Endarterectomy Trial (NASCET)-based stenosis levels. RIGHT: Intima: There is diffuse intimal thickening with more focal atheroma formation at the bifurcation. Velocities: Right internal carotid artery maximum peak systolic velocity: 72 cm/s Right common carotid artery maximum peak systolic velocity: 62 cm/s Right internal carotid artery/common carotid artery ratio: 0.9 Waveforms: There is no spectral broadening. There is retrograde flow during diastole. Right Vertebral: The proximal right vertebral artery is patent, with retrograde flow during diastole. LEFT: Intima: There is diffuse intimal thickening with more focal atheroma formation at the bifurcation. Velocities: Left internal carotid artery maximum peak systolic velocity: 75 cm/s Left common carotid artery maximum peak systolic velocity: 60 cm/s Left internal carotid artery/common carotid artery ratio: 1.3 Waveforms: There is no spectral broadening. There is retrograde flow during diastole. Left Vertebral: The proximal left vertebral artery is patent with retrograde flow during diastole. OTHER FINDINGS: None. IMPRESSION: 1. ATHEROMATOUS DISEASE. 2. NO HEMODYNAMICALLY SIGNIFICANT STENOSIS OF THE RIGHT INTERNAL CAROTID ARTERY BY FLOW VELOCITY MEASUREMENTS. THIS CORRESPONDS TO A LUMINAL DIAMETER OF LESS THAN 50% STENOSIS BY NASCET CRITERIA. 3. NO HEMODYNAMICALLY SIGNIFICANT STENOSIS OF THE LEFT INTERNAL CAROTID ARTERY BY FLOW VELOCITY MEASUREMENTS. THIS CORRESPONDS TO A LUMINAL DIAMETER OF LESS THAN 50% STENOSIS BY NASCET CRITERIA. 4. THERE IS RETROGRADE FLOW DURING DIASTOLE MULTIPLE VESSELS SUGGESTIVE OF AORTIC VALVULAR DISEASE. THIS IS SOMEWHAT MORE PRONOUNCED WITHIN THE LEFT VERTEBRAL ARTERY WHICH MAY INDICATE THE PRESENCE OF PROXIMAL LEFT CEPHALIC ARTERY STENOSIS AND SUBCLAVIAN STEAL PHYSIOLOGY IN THE CORRECT CLINICAL SETTING. CPT II Codes: 3100F
--- NOTE | 2017-07-28 16:39 | RAD ---
HISTORY: Left leg weakness, evaluate for right anterior cerebral artery stenosis COMPARISONS: MRI of the brain dated July 28, 2017 TECHNIQUE: 3-D axial [id number] MR angiography was performed of the head to include the [place] of [place]. Multiple 3-D maximum intensity projection reconstructions are also submitted for review. FINDINGS: The study is limited by patient motion artifact. RIGHT VERTEBRAL ARTERY: The distal right vertebral artery is unremarkable, without stenosis. LEFT VERTEBRAL ARTERY: There is no flow-related enhancement of the distal left vertebral artery. DOMINANCE: The right vertebral artery is dominant. DISTAL RIGHT CERVICAL INTERNAL CAROTID ARTERY: The distal right cervical internal carotid artery is unremarkable. DISTAL LEFT CERVICAL INTERNAL CAROTID ARTERY: The distal left cervical internal carotid artery is unremarkable. INTRACRANIAL CIRCULATION: There is no aneurysm, vascular malformation, occlusion, or stenosis of the visualized intracranial circulation. The anterior communicating artery complex is clear. Bilateral posterior communicating arteries are identified. OTHER FINDINGS: None IMPRESSION: 1. THERE IS NO FLOW-RELATED ENHANCEMENT OF THE DISTAL LEFT VERTEBRAL ARTERY WHICH MAY INDICATE HIGH-GRADE STENOSIS OR OCCLUSION OF THE LEFT VERTEBRAL ARTERY, THOUGH RETROGRADE FLOW IS ALSO WITHIN THE DIFFERENTIAL. 2. ELSEWHERE, THERE IS NO ANEURYSM, VASCULAR MALFORMATION, OCCLUSION, OR STENOSIS OF THE VISUALIZED INTRACRANIAL CIRCULATION.
--- NOTE | 2017-07-28 16:52 | RAD ---
HISTORY: Left leg weakness COMPARISONS: Head CT dated July 28, 2014, MR a dated July 14, 2014 TECHNIQUE: The following sequences were obtained of the head: Sagittal T1-weighted images, axial T2-weighted images, axial FLAIR images, axial susceptibility weighted images, axial T1-weighted images. Additionally, axial diffusion-weighted images were obtained with calculated apparent diffusion coefficients. FINDINGS: The study is limited by patient motion artifact. HEMORRHAGE/INFARCT: There is restricted diffusion within the cortex of the left occipital lobe, within the right caudate head, within the left caudate head, within the right striate on, and within the left inferior cerebellum consistent with multifocal subacute nonhemorrhagic infarct. Elsewhere, there is no hemorrhage or acute infarct. MASSES/SHIFT: There is no mass or shift. EXTRA-AXIAL SPACES/MENINGES: There are no extra-axial fluid collections. SULCI AND VENTRICLES: There is diffuse and proportional enlargement of the sulci and ventricles. CEREBRUM: There is multifocal elevated T2/FLAIR signal within the periventricular and subcortical white matter, including the areas of restricted diffusion. BRAINSTEM: There are no focal parenchymal abnormalities. CEREBELLUM: There is elevated T2/FLAIR signal within the left inferior cerebellum corresponding to there is restricted diffusion. The cerebellar tonsils are normal in size and position. SELLA: The sella is normal. PINEAL: The pineal region is clear. CP ANGLE/TEMPORAL BONES: The labyrinthine structures are grossly normal. VESSELS: Normal flow-voids are noted within the visualized vertebral vasculature. DIFFUSION ABNORMALITIES: As noted above, there is restricted diffusion within the left occipital lobe, right and left basal ganglia, and left cerebellum. PARANASAL SINUSES/MASTOIDS: There is a mucous retention cyst of the left maxillary sinus. ORBITS: The orbits are unremarkable. BONES AND SOFT TISSUE: No bone or soft tissue abnormalities are noted. OTHER: None IMPRESSION: MULTIFOCAL RESTRICTED DIFFUSION WITHIN THE CEREBRAL HEMISPHERES BILATERALLY AND LEFT CEREBELLUM CONSISTENT WITH MULTIFOCAL SUBACUTE NONHEMORRHAGIC INFARCTS. THE MULTIPLE VASCULAR TERRITORIES SUGGESTS AN EMBOLIC ETIOLOGY.
[2017-07-28] MEDS ORDERED: Atorvastatin* 40 MG TAB PO SCH (17:00)
--- NOTE | 2017-07-28 22:38 | CONS ---
NEUROLOGY CONSULTATION REPORT: DATE OF CONSULT: 07/28/17. CONSULTING PHYSICIAN: Dr. Asher Jolley to evaluate and by activating sridhar garcia to evaluate Ms. Nanda london for acute left leg weakness. The history was obtained by the patient and by reviewing the [facility] medical records. CHIEF COMPLAINT: Left leg weakness. HISTORY OF PRESENT ILLNESS: Mrs. Boss is a 76-year-old right-handed female, with history of tobac co use, who has not seen a doctor for 15 years, who presented to the hospital on 07/25/17 on for swel ling in the legs, as well as shortness of breath. She was admitted and treated for acute systolic h eart failure, acute kidney injury. She was on her way home today when suddenly she developed left le g weakness. The patient underwent cardiac catheterization yesterday. She was found nonobstructive c oronary artery disease and LAD lesion with left ventricular ejection fraction of 25-30%. The cathete r insert site was from the right radial. Today, the patient was walking around with the bedside nurse without any complication at 11:00 a.m. At 11:35, while she was getting discharged, the patient had a sudden onset of left leg weakness. She stated that her leg is heavy, numb, and feels cold. This i s a new problem. This is constant. The sridhar qouendo was called. She was assessed and we rushed her to the CAT scan, where there was no acute intracranial abnormality. However, when reviewing the CAT sca n, there was some areas of hypodensity in the left caudate, which can be nonspecific or chronic white matter disease. Initially her NIH was 2 due to inability to keep the leg up as well as some sensory abnormality, but after the CAT scan, her NIH dropped to 1 due to slight droop and slight drift in th e left leg. The patient denied any headaches, visual disturbance, slurred speech, swallowing difficulty. The pat ient denied any upper extremity symptoms. She denied any low back pain. She denied any impairment i n her bowel or bladder functions. She denied any chest pain or shortness of breath currently. I als o discussed the case with the patient's son, who presented at bedside. PAST MEDICAL HISTORY: Tobacco use. PAST SURGICAL HISTORY: Recent cardiac catheterization where heparin was infused as part of the rain col. FAMILY HISTORY: No history of stroke or seizures. SOCIAL HISTORY: The patient does smoke heavily everyday. She has been smoking for over 50 years. S he denied any significant alcohol use. REVIEW OF SYSTEMS: Negative except for what was mentioned in the HPI. PHYSICAL EXAM: Vitals: Temperature 97.9, pulse of 76, respirations 20, oxygen saturation of 92, blo od pressure 101/59. General: Chronically ill-appearing frail female in no acute distress. She is a lert and cooperative, in no apparent distress. Head: Normocephalic without any obvious abnormality. Eyes: Conjunctivae and corneas are clear. Supple neck with no carotid bruits. Lungs: Clear to aus cultation bilaterally with nonlabored breathing. Cardiovascular: Regular rate and rhythm. Normal S1 and S2. Radial pulses are palpable. Extremities: Normal range of motion with no cyanosis or hammer toes. Skin: No skin lesions or lacerations. Psych: Affect is broad and normal mood. Neurological Examination: Mental Status: Awake and alert, oriented to person, place, time, and general circumsta nces. Speech and language including expression, naming, repetition, and comprehension was assessed a nd found to be normal. Cranial Nerves: Normal confrontation bilaterally. Pupils are mid range and reactive to light. Normal consensual response. Extraocular muscles are intact. No ptosis. No conju gate or asymmetrical nystagmus. Sensation is intact on forehead, cheeks, and jaw region bilaterally. No facial droop or facial asymmetry. Able to hear throughout history process. Able to hear throug hout the history process. Symmetrical palatal elevation. Normal strength against resistance. Tongue is symmetrical and midline with no atrophy or fasciculation. Motor: No abnormal movements or prona tor drift. Normal bulk and tone throughout. No fasciculation. Neck extension is 5. Shoulder range of motion is full. Motor strength right/left: Shoulder abduction 5/5. Elbow flexion is 5/5, extensi on is 5/5. Wrist flexion 5/5, extension 5/5. Finger flexion 5/5, extension 5/5, abduction 5/5. Hip flexion 5/4, abduction 5/4. Knee flexion 5/4, extension 5/5. Ankle dorsiflexion 5/4, plantar flexi on 5/5. Great toe extension 5/4. Reflexes 1+ in the brachioradialis, biceps, triceps, and patella b ilaterally. Ankles are 0 bilaterally. Plantar flexor on the right with new on the left. Sensation is intact to light touch throughout. There is normal vibration of the great toe. Coordination: Nor mal itekfu-cn-ahfb reduced. Rapid alternating movements of the left leg. There was some mild motor dysmetria or hsyv-bl-[id number] testing on the left. Gait hand station: Wide based gait requiring one pers on assist. DIAGNOSTIC STUDIES/LAB DATA: Laboratory, imaging and other diagnostic: Potassium 3.4, creatinine 1. 27, PTT 27, pending labs after the code garcia. ASSESSMENT: 1. This is a pleasant 76-year-old female with systolic heart failure, tobacco abuse, who is status p ost cardiac catheterization yesterday, who developed sudden onset in left leg weakness that initiated at 11:35 today. The patient's NIH stroke scale was 2, but decreased to [address] of the head. She was not a candidate. I suspect that she had a small embolic infarct to the right FRANCISCA distributio n. There is a questionable hypodensity in the right caudate region as well. Given the recent cathete rization, I wonder if she had some emboli or calcification from proximal aortic disease. The patient was not a candidate for IV TPA due to low NIH stroke scale and rapidly improving symptoms. However, TPA was considered despite the low NIH stroke scale, but after discussing with the patient and son, the risk of symptomatic hemorrhage or that does not outweigh the benefit of allowing her to heal on h er own without aggressive management. 2. Systolic heart failure. 3. Tobacco abuse. PLAN: The patient was on her way to go home. Please cancel discharge. The patient is not a tamika te for mechanical thrombectomy either due to low NIH stroke scale and we suspect this is a small dist al embolic stroke. We will continue treatment in the medical service here for post-stroke monitoring for at least 24 hours. I recommend neuro checks every four hours for the next 24 hours. I have ord ered an MRI of the brain and MRA of the head. I have ordered a carotid sonography. No need for a tr ansthoracic echo since she has had one recently. Continue telemetry. Continue statin therapy. Ludwin e give aspirin 325 mg once now and increase the aspirin to 162 daily thereafter. We will check TSH a nd vitamin B12 if not yet done so. Allow permissive hypertension. Keep her blood pressure at least higher than what it is now. Treat for blood pressure over 180. Please consult PT/OT/SOP evaluate an d treat. Please perform a bedside swallow evaluation. Stroke education was completed today. We disc ussed the importance of medication compliance, abstinency from smoking and adherent a to healthy life style were discussed with the patient. We went over the signs and symptoms of stroke and urged her t o contact the nurse if she encounters any of these symptoms. Do not place the urinary catheter unles s there is evidence of urinary retention. Continue VTE prophylaxis, subcutaneous heparin injection 5 000 units t.i.d. No need for anticoagulation therapy at this point as the patient does not have any documented atrial fibrillation. TIME SPENT: I spent a total of 70 minutes and greater than 50% of that was spent directly reviewing the medical chart, obtaining history and examining the patient, reviewing radiographic imaging, educa tion and counseling, and discussing the treatment plan and potential prognosis. If she does not impr ove by the next 24 to 48 hours, she will need acute rehabilitation. We will continue to follow. [id number]/[facility] #: [id number]
[2017-07-29] MEDS: Heparin VIAL(*) 5000 UNITS/ML VIAL (FIVE THOUSAND) SUBCUT SCH ×2 (05:42→13:29)
[2017-07-29] MEDS ORDERED: Aspirin EC TAB* 81 MG TAB.EC PO SCH ×2 (09:00→12:50)
[2017-07-29 11:36] VITALS: BP 105/60
[2017-07-29] MEDS: Potassium Chlor TAB* 10 MEQ TAB.ER PO SCH (11:36)
[2017-07-29] MEDS: Enalapril TAB* 5 MG PO SCH (11:37)
[2017-07-29] MEDS: Spironolactone TAB* 25 MG PO SCH (12:32)
[2017-07-29] MEDS: Carvedilol TAB* 6.25 MG PO SCH (12:32)
[2017-07-29] MEDS ORDERED: Aspirin EC TAB* 81 MG TAB.EC PO ONE (12:50)
[2017-07-29 14:38] LABS: EGFR Non-African American 46.2 (>60)
--- NOTE | 2017-07-29 17:26 | PN ---
NEUROLOGY FOLLOWUP: DATE OF FOLLOWUP: 07/29/17 LOCATION: She is in room 434. HOSPITALIST: Dr. Jolley. CHIEF COMPLAINT: Left leg weakness. INTERVAL HISTORY: Since yesterday, Ms. Boss feels she is walking better. She still feels a little unsteady, but has been able to ambulate independently to the bathroom. She denies problems with vision, dizziness, or upper extremity weakness or clumsiness. MEDICATIONS: Reviewed and she is now on: 1. Aspirin 162 mg p.o. daily. 2. Atorvastatin 40 mg p.o. daily. 3. Coreg 6.25 mg p.o. b.i.d. 4. Heparin subcutaneous q.8 hours 5000 units. 5. Nicotine inhaler. 6. Aldactone 25 mg p.o. daily. REVIEW OF SYSTEMS: Negative for headaches, change in vision, or lightheadedness. She is eager to go home. PHYSICAL EXAMINATION: She is well nourished and well hydrated. She has tobacco stains on her left hand. Temperature 97.6, heart rate in the 70s and seems regular, blood pressure most recently 105/60. Respiratory rate 24, oxygen saturation 99% on room air. Neurological Exam: Eye movements are normal. Facial musculature is symmetric. Palate and tongue are normal and speech is clear. Visual nguyen are full. Motor exam reveals normal muscle tone and strength in the upper extremities. There is no drift. Finger taps are normal in the hands. Rixgbz-fa-cxms maneuver is normal bilaterally. On motor exam in the lower extremities, she has normal strength proximally and distally of the right leg. She has grade 4 to 4+ weakness of left hip flexors, grade 4 left ankle dorsiflexor weakness. Xezc-nu-etip maneuver is normal on the right and little bit clumsy on the left. Reflexes at the knees are hypoactive, but present and symmetric. Plantar responses are flexor bilaterally. She is alert and oriented to person, place, and time. Speech is clear and language is fluent. Remote and recent memory seem intact. DIAGNOSTIC STUDIES/LAB DATA: Laboratory data includes a chemistry profile today notable for a sodium of 138, creatinine 1.14 which is stable. I reviewed her MRI angiogram of the head and also MRI of the brain. There are multiple small infarctions in at least 3 vascular distributions consistent with cardioembolic infarcts. The largest one is in the right caudate. Carotid ultrasound and MR angiogram revealed diffuse atherosclerotic disease, but no significant stenosis. 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 She is now on aspirin and also atorvastatin, which I agree with. I advised her that smoking increases her risk of stroke and if she is able to quit smoking it would decrease her risk of recurrent stroke. I think she can be discharged to home as she apparently just has 2 steps to get in and out of her place according to her daughter who is present today. She will need outpatient physical therapy. I can see her in followup in our office in a few weeks, but she still needs to establish primary care provider. [id number]/[facility] #: [id number] MELVIN
--- NOTE | 2017-07-29 23:17 | DS ---
DISCHARGE SUMMARY: DATE OF ADMISSION: DATE OF DISCHARGE: 07/29/17 HISTORY: This 76-year-old woman went to the emergency room because of pedal edema. She had not seen a doctor for 15 years. She was smoking at home. She has had no prescription medications at home. She had bilateral lower extremity edema. Chest x-ray showed pulmonary vascular congestion, troponin was 0.07. BNP was 3413. The patient was treated with diuretics. She had an echocardiogram showing ejection fraction of about 25%. She was put on the beta-garcia and CHAU inhibitor, spironolactone and a statin. She had a car diac catheterization. She had nonobstructive coronary artery disease. The day after the catheteriza tion, she felt intermittent periods of weakness of her extremities. Particularly, her left leg was w eak. A code garcia was called. CT scan was unremarkable. MRI, however, did show multiple small infar ctions in both hemispheres, very suggestive of emboli. She recovered from her neurologic problems wel l. She was evaluated by Dr. Del Valle from Neurology and the next day by Dr. Bautista. It is very likel y that these emboli was related to her cardiac catheterization. No significant arrhythmias were note d on telemetry. The patient was advised to quit smoking. She was hypoxic and home oxygen has been arranged. FINAL DIAGNOSES: 1. Acute systolic congestive heart failure. 2. Multiple embolic emboli post cardiac cath. 3. Tobacco abuse. 4. Acute kidney injury. DISCHARGE MEDICATIONS: 1. Atorvastatin 40 mg daily at 5 p.m. 2. Carvedilol 6.25 mg b.i.d. 3. Spironolactone 25 mg daily. 4. Aspirin 162 mg daily. 5. Lisinopril 2.5 mg daily. The patient will have a basic metabolic profile and B type natriuretic peptide in 2 to 3 days. She w ill need a primary care physician. [id number]/[facility] #: [id number]
[2017-07-30] MEDS ORDERED: Aspirin EC TAB* 81 MG TAB.EC PO SCH (09:00)
[2017-07-30] MEDS ORDERED: Lisinopril TAB* 5 MG PO SCH (09:00)
--- NOTE | 2017-08-01 08:45 | ED ---
Jalen Huntley Jennifer, scribed for Sam Babb MD on 07/25/17 at 1824 . Lower Extremity <Gogo Brothers - Last Filed: 07/25/17 18:34> - HPI Summary HPI Summary: The patient is a 76 year old female who was sent to the ED by her primary care physician for a possible heart attack today. The patient reports she went to her PMD at [facility] due to her swollen legs where she had an EKG done. She states she started to feeling sick a couple weeks ago. The patient denies chest pain, trouble breathing, dizziness, lightheadedness, and nausea. - History of Current Complaint Hx Obtained From: Patient Mechanism Of Injury: Unknown Pain Intensity: 0 Pain Scale Used: 0-10 Numeric Timing: Lasting Weeks - Began feeling sick a couple weeks ago Location: Is Diffuse - bilateral lower extremity Associated Signs And Symptoms: Positive: Other - swelling lower extremities. NEGATIVE: chest pain, trouble breathing, dizziness, lightheadedness, nausea. Aggravating Factor(s): Nothing Able to Bear Weight: Yes <Sam Babb - Last Filed: 07/25/17 19:17> - History of Current Complaint Chief Complaint: EDGeneral Stated Complaint: CHEST PAIN Time Seen by Provider: 07/25/17 16:37 - Allergies/Home Medications Allergies/Adverse Reactions: Allergies Allergy/AdvReac Type Severity Reaction Status Date / Time aspirin Allergy Mild See Comment Verified 07/25/17 16:38 Home Medications: Home Medications Aspirin EC TAB* [Ecotrin EC Low Dose 81 MG*] 81 mg PO QPM 07/25/17 [History Confirmed 07/25/17] PMH/Surg Hx/FS Hx/Imm Hx Endocrine/Hematology History: Denies: Hx Diabetes Cardiovascular History: Denies: Hx Hypertension Respiratory History: Denies: Hx Asthma Infectious Disease History: No Infectious Disease History: Denies: Traveled Outside the [place] in Last 30 Days - Family History Known Family History: Negative: Cardiac Disease, Hypertension, Diabetes - Social History Alcohol Use: Rare Substance Use Type: Reports: None Hx Tobacco Use: Yes Smoking Status (MU): Heavy Every Day Tobacco Smoker Type: Cigarettes <Sam Babb - Last Filed: 07/25/17 19:17> Review of Systems Positive: Other - Feeling "general sickness". Negative: Fever, Chills Negative: Erythema Negative: Sore Throat Negative: Chest Pain Negative: Shortness Of Breath, Cough Negative: Abdominal Pain, Vomiting, Nausea Negative: dysuria, hematuria Positive: Edema - bilateral lower extremities. Negative: Myalgia Negative: Rash Neurological: Negative - dizziness All Other Systems Reviewed And Are Negative: Yes <WarrenSam - Last Filed: 07/25/17 19:17> Physical Exam Vital Signs On Initial Exam: Initial Vitals Pulse Resp BP Pulse Ox 115 19 173/106 96 07/25/17 16:26 07/25/17 16:26 07/25/17 16:26 07/25/17 16:26 <Gogo Brothers - Last Filed: 07/25/17 18:34> - Summary Physical Exam Summary: Constitutional: Well-developed, Well-nourished, Alert. (-) Distressed Skin: Warm, Dry HENT: Normocephalic; Atraumatic Eyes: Conjunctiva normal Neck: Musculoskeletal ROM normal neck. (-) JVD, (-) Stridor, (-) Tracheal deviation Cardio: Rhythm regular, rate normal, Heart sounds normal; Intact distal pulses; The pedal pulses are 2+ and symmetric. Radial pulses are 2+ and symmetric. (-) Murmur Pulmonary/Chest wall: Effort normal. (-) Respiratory distress, (-) Wheezes, (-) Rales Abd: Soft, (-) Tenderness, (-) Distension, (-) Guarding, (-) Rebound Musculoskeletal: trace pedal edema Lymph: (-) Cervical adenopathy Neuro: Alert, Oriented x3 Psych: Mood and affect Normal Triage Information Reviewed: Yes Vital Signs On Initial Exam: Initial Vitals Pulse Resp BP Pulse Ox 115 19 173/106 96 07/25/17 16:26 07/25/17 16:26 07/25/17 16:26 07/25/17 16:26 Vital Signs Reviewed: Yes <Sam Babb - Last Filed: 07/25/17 19:17> Diagnostics - Vital Signs Vital Signs Temp Pulse Resp BP Pulse Ox 07/25/17 18:26 35 169/93 07/25/17 18:00 116 32 97 07/25/17 17:56 113 31 160/107 96 07/25/17 17:26 115 32 165/108 97 07/25/17 17:00 113 31 97 07/25/17 16:56 113 33 164/109 96 07/25/17 16:38 118 24 97 07/25/17 16:34 98.8 F 121 24 173/106 96 07/25/17 16:26 115 19 173/106 96 - Laboratory Lab Results: Lab Results 07/25/17 07/25/17 07/25/17 Range/Units 16:56 16:56 16:56 WBC 8.6 (3.5-10.8) 10^3/ul RBC 4.67 (4.0-5.4) 10^6/ul Hgb 14.6 (12.0-16.0) g/dl Hct 44 (35-47) % MCV 93 (80-97) fL MCH 31 (27-31) pg MCHC 33 (31-36) g/dl RDW 15 (10.5-15) % Plt Count 199 (150-450) 10^3/ul MPV 7.7 (7.4-10.4) um3 Neut % (Auto) 76.0 (38-83) % Lymph % (Auto) 17.4 L (25-47) % Concho % (Auto) 5.6 (0-7) % Eos % (Auto) 0.4 (0-6) % Baso % (Auto) 0.6 (0-2) % Absolute Neuts (auto) 6.5 (1.5-7.7) 10^3/ul Absolute Lymphs (auto) 1.5 (1.0-4.8) 10^3/ul Absolute Monos (auto) 0.5 (0-0.8) 10^3/ul Absolute Eos (auto) 0 (0-0.6) 10^3/ul Absolute Basos (auto) 0 (0-0.2) 10^3/ul Absolute Nucleated RBC 0 10^3/ul Nucleated RBC % 0.1 Sodium 137 L (139-145) mmol/L Potassium 3.8 (3.5-5.0) mmol/L Chloride 100 L (101-111) mmol/L Carbon Dioxide 25 (22-32) mmol/L Anion Gap 12 H (2-11) mmol/L BUN 30 H (6-24) mg/dL Creatinine 1.15 H (0.51-0.95) mg/dL Est GFR ( Amer) 58.8 (>60) Est GFR (Non-Af Amer) 45.8 (>60) BUN/Creatinine Ratio 26.1 H (8-20) Glucose 132 H (70-100) mg/dL Lactic Acid 1.6 (0.5-2.0) mmol/L Calcium 9.2 (8.6-10.3) mg/dL Total Bilirubin 0.90 (0.2-1.0) mg/dL AST 44 H (13-39) U/L ALT 50 (7-52) U/L Alkaline Phosphatase 58 (34-104) U/L Troponin I 0.07 H* (<0.04) ng/mL Total Protein 6.2 L (6.4-8.9) g/dL Albumin 3.4 (3.2-5.2) g/dL Globulin 2.8 (2-4) g/dL Albumin/Globulin Ratio 1.2 (1-3) Result Diagrams: 07/25/17 16:56 07/25/17 16:56 Lab Statement: Any lab studies that have been ordered have been reviewed, and results considered in the medical decision making process. <Gogo Brothers - Last Filed: 07/25/17 18:34> - Vital Signs Vital Signs Temp Pulse Resp BP Pulse Ox 07/25/17 17:26 115 32 165/108 97 07/25/17 17:00 113 31 97 07/25/17 16:56 113 33 164/109 96 07/25/17 16:38 118 24 97 07/25/17 16:34 98.8 F 121 24 173/106 96 07/25/17 16:26 115 19 173/106 96 - Laboratory Lab Results: Lab Results 07/25/17 07/25/17 07/25/17 Range/Units 16:56 16:56 16:56 WBC 8.6 (3.5-10.8) 10^3/ul RBC 4.67 (4.0-5.4) 10^6/ul Hgb 14.6 (12.0-16.0) g/dl Hct 44 (35-47) % MCV 93 (80-97) fL MCH 31 (27-31) pg MCHC 33 (31-36) g/dl RDW 15 (10.5-15) % Plt Count 199 (150-450) 10^3/ul MPV 7.7 (7.4-10.4) um3 Neut % (Auto) 76.0 (38-83) % Lymph % (Auto) 17.4 L (25-47) % Concho % (Auto) 5.6 (0-7) % Eos % (Auto) 0.4 (0-6) % Baso % (Auto) 0.6 (0-2) % Absolute Neuts (auto) 6.5 (1.5-7.7) 10^3/ul Absolute Lymphs (auto) 1.5 (1.0-4.8) 10^3/ul Absolute Monos (auto) 0.5 (0-0.8) 10^3/ul Absolute Eos (auto) 0 (0-0.6) 10^3/ul Absolute Basos (auto) 0 (0-0.2) 10^3/ul Absolute Nucleated RBC 0 10^3/ul Nucleated RBC % 0.1 Sodium 137 L (139-145) mmol/L Potassium 3.8 (3.5-5.0) mmol/L Chloride 100 L (101-111) mmol/L Carbon Dioxide 25 (22-32) mmol/L Anion Gap 12 H (2-11) mmol/L BUN 30 H (6-24) mg/dL Creatinine 1.15 H (0.51-0.95) mg/dL Est GFR ( Amer) 58.8 (>60) Est GFR (Non-Af Amer) 45.8 (>60) BUN/Creatinine Ratio 26.1 H (8-20) Glucose 132 H (70-100) mg/dL Lactic Acid 1.6 (0.5-2.0) mmol/L Calcium 9.2 (8.6-10.3) mg/dL Total Bilirubin 0.90 (0.2-1.0) mg/dL AST 44 H (13-39) U/L ALT 50 (7-52) U/L Alkaline Phosphatase 58 (34-104) U/L Troponin I 0.07 H* (<0.04) ng/mL Total Protein 6.2 L (6.4-8.9) g/dL Albumin 3.4 (3.2-5.2) g/dL Globulin 2.8 (2-4) g/dL Albumin/Globulin Ratio 1.2 (1-3) Result Diagrams: 07/25/17 16:56 07/25/17 16:56 Lab Statement: Any lab studies that have been ordered have been reviewed, and results considered in the medical decision making process. - Radiology CXR Xray Interpretation: Positive (See Comments) - PULMONARY VASCULAR CONGESTION WITH MILD CARDIOMEGALY AND BIBASILAR ATELECTASIS VERSUS EARLY CONSOLIDATION. Dr. Babb has reviewed this report. Radiology Interpretation Completed By: Radiologist - EKG 16:26 Cardiac Rate: Tachycardia EKG Rhythm: Sinus Tachycardia - 117 BPM EKG Interpretation: Lateral T wave inversion, no STEMI <Sam Babb - Last Filed: 07/25/17 19:17> Lower Extremity Course/Dx <Gogo Brothers - Last Filed: 07/25/17 18:34> - Course Course Of Treatment: The patient is a 76 year old female who was sent to the ED by her primary care physician for a possible heart attack today after EKG test. In the ED course the patient was given Lasix and NTG. Bloodwork was obtained. EKG was obtained. CXR showed P ULMONARY VASCULAR CONGESTION WITH MILD CARDIOMEGALY AND BIBASILAR ATELECTASIS VERSUS EARLY CONSOLIDATION. The patient is diagnosed with CHF exacerbation and elevated troponin. The patient will be admitted to [facility]. - Diagnoses Differential Diagnosis/HQI/PQRI: Positive: Other - CHF vs. NSTEMI <Sam Babb - Last Filed: 07/25/17 19:17> - Diagnoses Provider Diagnoses: CHF exacerbation, Elevated troponin Discharge <Gogo Brothers - Last Filed: 07/25/17 18:34> - Sign-Out/Discharge Documenting (check all that apply): Discharge/Admit/Transfer <Sam Babb - Last Filed: 07/25/17 19:17> - Discharge Plan Condition: Good Disposition: ADMITTED TO [facility] Referrals: No Primary Care Phys,NOPCP [Primary Care Provider] - The documentation as recorded by the Jalen quesada Jennifer accurately reflects the service I personally performed and the decisions made by , Sam Babb MD.
== END 2017-07-29 17:00 | disposition home or self-care (01) | DRG 286 ==
LOC: ED 16:23 → MEDTELE 19:51
PROVIDERS: ADMIT Internal Medicine; ATTEND Internal Medicine
PROC: 4A023N7 Measurement of Cardiac Sampling and Pressure, Left Heart, Percutaneous Approach (ICD-10-PCS; principal; 2017-07-25)
PROC: B2111ZZ Fluoroscopy of Multiple Coronary Arteries using Low Osmolar Contrast (ICD-10-PCS; 2017-07-25)
DX: I11.0 Hypertensive heart disease with heart failure (principal); J96.01 Acute respiratory failure with hypoxia; N17.9 Acute kidney failure, unspecified; E87.1 Hypo-osmolality and hyponatremia; I97.89 Other postprocedural complications and disorders of the circulatory system, not elsewhere classified; I50.21 Acute systolic (congestive) heart failure; I42.8 Other cardiomyopathies; F41.9 Anxiety disorder, unspecified; F17.210 Nicotine dependence, cigarettes, uncomplicated; R74.8 Abnormal levels of other serum enzymes; R00.0 Tachycardia, unspecified; R22.1 Localized swelling, mass and lump, neck; I16.0 Hypertensive urgency; I65.29 Occlusion and stenosis of unspecified carotid artery; I08.1 Rheumatic disorders of both mitral and tricuspid valves; M71.21 Synovial cyst of popliteal space [Baker], right knee; I50.82 Biventricular heart failure; I25.10 Atherosclerotic heart disease of native coronary artery without angina pectoris; Y71.3 Surgical instruments, materials and cardiovascular devices (including sutures) associated with adverse incidents; W19.XXXA Unspecified fall, initial encounter; Y92.239 Unspecified place in hospital as the place of occurrence of the external cause; I51.3 Intracardiac thrombosis, not elsewhere classified; Z66 Do not resuscitate; Y84.0 Cardiac catheterization as the cause of abnormal reaction of the patient, or of later complication, without mention of misadventure at the time of the procedure; Z82.3 Family history of stroke; Z99.81 Dependence on supplemental oxygen; Z79.82 Long term (current) use of aspirin; Z86.12 Personal history of poliomyelitis; Z82.49 Family history of ischemic heart disease and other diseases of the circulatory system
CPT/HCPCS: 36415; 70450; 70544; 70551; 71045; 71046; 80048; 80053; 80061; 83036; 83605; 83880; 84484; 85025; 85610; 85730; 87502; 93005; 93306; 93458; 93880; 93970; 99156; 99157; 99285; 99406; A9270-GY; C1769; G8979-GP-CI; G8980-GP-CI; J0153; J1644; J1940; J2250; J3010

== ENCOUNTER 2017-07-30 02:38 | Emergency (ER) | payer MEDICARE ==
[2017-07-30] MEDS ORDERED: Aspirin 81 mg CHEW TAB* 81 MG TAB.CHEW PO ONE (04:57)
--- NOTE | 2017-07-30 05:04 | ED ---
Maria Elena Huntley Emily, scribed for Anna Starr MD on 07/30/17 at 0501 . Lower Extremity - HPI Summary HPI Summary: This patient is a 76 year old F presenting to [facility] accompanied by family with a chief complaint of L leg numbness that began [employer], lasted 15 minutes, and resolved [employer]. The patient rates the pain 0/10 in severity. Symptoms aggravated by nothing. Symptoms alleviated by nothing. - History of Current Complaint Chief Complaint: EDExtremityLower Stated Complaint: NUMBNESS IN LT LEG Time Seen by Provider: 07/30/17 04:51 Hx Obtained From: Patient Onset of Pain: Prior to Arrival Onset/Duration: Minutes Severity Initially: Mild Severity Currently: Mild Pain Intensity: 0 Pain Scale Used: 0-10 Numeric Timing: Intermittent, Lasting Minutes Associated Signs And Symptoms: Positive: Negative Aggravating Factor(s): Nothing Alleviating Factor(s): Nothing - Allergies/Home Medications Allergies/Adverse Reactions: Allergies Allergy/AdvReac Type Severity Reaction Status Date / Time aspirin Allergy Mild See Comment Verified 07/25/17 16:38 PMH/Surg Hx/FS Hx/Imm Hx Previously Healthy: No Cardiovascular History: Reports: Hx Hypertension Denies: Hx Pacemaker/ICD Sensory History: Reports: Hx Contacts or Glasses - reading Denies: Hx Hearing Aid Opthamlomology History: Reports: Hx Contacts or Glasses - reading Psychiatric History: Denies: Hx Panic Disorder Infectious Disease History: No Infectious Disease History: Denies: Traveled Outside the [place] in Last 30 Days - Family History Known Family History: Negative: Cardiac Disease, Hypertension, Diabetes - Social History Occupation: Employed Full-time Lives: With Family Alcohol Use: None Substance Use Type: Reports: None Smoking Status (MU): Former Smoker Review of Systems Negative: Fever Positive: Numbness All Other Systems Reviewed And Are Negative: Yes Physical Exam - Summary Physical Exam Summary: VITAL SIGNS: Reviewed. GENERAL: ~Patient is a well-developed and nourished female who is lying comfortable in the stretcher. Patient is not in any acute respiratory distress. HEAD AND FACE: No signs of trauma. No ecchymosis, hematomas or skull depressions. No sinus tenderness. EYES: PERRLA, EOMI x 2, No injected conjunctiva, no nystagmus. EARS: Hearing grossly intact. Ear canals and tympanic membranes are within normal limits. MOUTH: Oropharynx within normal limits. NECK: Supple, trachea is midline, no adenopathy, no JVD, no carotid bruit, no c- spine tenderness, neck with full ROM. CHEST: Symmetric, no tenderness at palpation LUNGS: Decreased breath sounds bilaterally. No wheezing or crackles. CVS: Regular rate and rhythm, S1 and S2 present, no murmurs or gallops appreciated. ABDOMEN: Soft, non-tender. No signs of distention. No rebound no guarding, and no masses palpated. Bowel sounds are normal. EXTREMITIES: FROM in all major joints, no edema, no cyanosis or clubbing. NEURO: Alert and oriented x 3. No acute neurological deficits. Speech is normal and follows commands. SKIN: Dry and warm Triage Information Reviewed: Yes Vital Signs On Initial Exam: Initial Vitals Temp Pulse Resp BP Pulse Ox 98.2 F 84 16 178/91 100 07/30/17 02:42 07/30/17 02:42 07/30/17 02:42 07/30/17 02:42 07/30/17 02:42 Vital Signs Reviewed: Yes Diagnostics - Vital Signs Vital Signs Temp Pulse Resp BP Pulse Ox 07/30/17 04:00 74 98 07/30/17 03:58 83 135/80 98 07/30/17 03:28 90 130/90 99 07/30/17 03:27 79 97 07/30/17 02:42 98.2 F 84 16 178/91 100 - Laboratory Lab Statement: Any lab studies that have been ordered have been reviewed, and results considered in the medical decision making process. Lower Extremity Course/Dx - Course Course Of Treatment: This patient is a 76 year old F presenting to [facility] accompanied by family with a chief complaint of L leg numbness that began [employer], lasted 15 minutes, and resolved [employer] - Diagnoses Provider Diagnoses: Numbness of left lower extremity Discharge - Sign-Out/Discharge Documenting (check all that apply): Discharge/Admit/Transfer - Discharge home - Discharge Plan Condition: Stable Disposition: HOME Referrals: [facility] PHYSICIAN REFERRAL [Outside] - 2 Days Additional Instructions: RETURN TO THE EMERGENCY DEPARTMENT FOR NEW OR WORSENING SYMPTOMS The documentation as recorded by the Maria Elena quesada Emily accurately reflects the service I personally performed and the decisions made by , nAna Starr MD.
[2017-07-30 05:05] VITALS: BP 151/87
== END 2017-07-30 05:15 | disposition home or self-care (01) ==
LOC: ED 02:38
DX: R20.0 Anesthesia of skin (principal); Z87.891 Personal history of nicotine dependence; I10 Essential (primary) hypertension
CPT/HCPCS: 99282; A9270-GY

== ENCOUNTER 2017-10-27 15:12 | Inpatient (IN) | payer MEDICARE ==
--- NOTE | 2017-10-27 16:22 | ED ---
Lower Extremity - HPI Summary HPI Summary: This is scribe Aristeo Weeks documenting for attending Oniel Ariza MD. Patient is a 76 y/o F w/ c/o a wound on her left leg onsetting a month ago. Patient went to the wound clinic today and was referred to ED by Brandi Moulton NP in [place]. Patient states she has been on Bactrim for about a week. On triage , pain is rated 5/10 and nothing is reported to aggravate/alleviate Sx. Home medications and allergies were reviewed. - History of Current Complaint Chief Complaint: EDExtremityLower Stated Complaint: LT LEG INJURY Time Seen by Provider: 10/27/17 16:04 Hx Obtained From: Patient Onset/Duration: Weeks - wound has been present for a month Severity Currently: Moderate - 5/10 Pain Intensity: 5 Pain Scale Used: 0-10 Numeric - 5/10 Timing: Constant Location: Is Diffuse - LLE Aggravating Factor(s): Nothing Alleviating Factor(s): Nothing - Allergies/Home Medications Allergies/Adverse Reactions: Allergies Allergy/AdvReac Type Severity Reaction Status Date / Time aspirin Allergy Mild See Comment Verified 10/27/17 16:41 Home Medications: Home Medications Enalapril TAB* [Vasotec TAB*] 10 mg PO BID 10/27/17 [History Confirmed 10/27/17] Furosemide TAB* [Lasix TAB*] 20 mg PO DAILY 10/27/17 [History Confirmed 10/27/17 ] Potassium Chlor TAB* [Klor Con ER TAB*] 20 meq PO DAILY 10/27/17 [History Confirmed 10/27/17] PMH/Surg Hx/FS Hx/Imm Hx Cardiovascular History: Reports: Hx Hypertension Denies: Hx Pacemaker/ICD Sensory History: Reports: Hx Contacts or Glasses - reading Denies: Hx Hearing Aid Opthamlomology History: Reports: Hx Contacts or Glasses - reading Psychiatric History: Denies: Hx Panic Disorder Infectious Disease History: No Infectious Disease History: Denies: Traveled Outside the [place] in Last 30 Days - Family History Known Family History: Negative: Cardiac Disease, Hypertension, Diabetes - Social History Alcohol Use: None Substance Use Type: Reports: None Smoking Status (MU): Former Smoker Review of Systems Negative: Fever - on vitals, temperature is noted to be 97.9 F Positive: Other - wound on left leg causing pain All Other Systems Reviewed And Are Negative: Yes Physical Exam - Summary Physical Exam Summary: Appearance: The patient is well-nourished in no acute distress and in no acute pain. Skin: The skin is warm and dry and skin color reflects adequate perfusion. Necrotic lesion on proximal left anterior linares is noted. Capillary refill is greater than 5 seconds. Wound is malodorous. No palpable DP pulse is discerned. Left foot is pale and tender. HEENT: The head is normocephalic and atraumatic. The pupils are equal and reactive. The conjunctivae are clear and without drainage. Nares are patent and without drainage. Mouth reveals moist mucous membranes and the throat is without erythema and exudate. The external ears are intact. The ear canals are patent and without drainage. The tympanic membranes are intact. Neck: The neck is supple with full range of motion and non-tender. There are no carotid bruits. There is no neck vein distension. Respiratory: Chest is non-tender. Lungs are clear to auscultation and breath sounds are symmetrical and equal. Cardiovascular: Heart is regular rate and rhythm. There is no murmur or rub auscultated. There is no peripheral edema and pulses are symmetrical and equal. Abdomen: The abdomen is soft and non-tender. There are normal bowel sounds heard in all four quadrants and there is no organomegaly palpated. Musculoskeletal: There is no back tenderness noted. Extremities are non-tender with full range of motion. There is good capillary refill. There is no peripheral edema or calf tenderness elicited. Neurological: Patient is alert and oriented to person, place and time. The patient has symmetrical motor strength in all four extremities. Cranial nerves are grossly intact. Deep tendon reflexes are symmetrical and equal in all four extremities. Psychiatric: The patient has an appropriate affect and does not exhibit any anxiety or depression. Triage Information Reviewed: Yes Vital Signs On Initial Exam: Initial Vitals Temp Pulse Resp BP Pulse Ox 97.9 F 78 18 93/56 92 10/27/17 15:20 10/27/17 15:20 10/27/17 15:20 10/27/17 15:20 10/27/17 15:20 Vital Signs Reviewed: Yes Diagnostics - Vital Signs Vital Signs Temp Pulse Resp BP Pulse Ox 10/27/17 15:20 97.9 F 78 18 93/56 92 - Laboratory Result Diagrams: 10/27/17 16:37 10/27/17 16:37 Lab Statement: Any lab studies that have been ordered have been reviewed, and results considered in the medical decision making process. - CT LLE CT CT Interpretation Completed By: Radiologist - CT findings are consistent with gas forming superficial infection of the left lower anterior leg. There is no CT evidence of gas forming infection in ther anterior musculature or signs of osteomyelitis. This report was reviewed by ED physician. Re-Evaluation - Re-Evaluation First Eval Re-Evaluation Time: 18:27 Comment: Discussed results of labs and tests with patient as well as plan to admit patient to [facility] for further workup. Patient is agreeable with this plan. Lower Extremity Course/Dx - Course Course Of Treatment: Ms. Boss presents with a necrotic lesion on the left lower leg and obvious signs of poor perfusion. She likely has small vessel disease in that leg. CT does show some anterior in the subcutaneous tissue but not in the muscle and no evidence for fasciitis. She is given IV antibiotics and will have a great deal of difficulty healing and I recommended admission to the hospitalists for further workup and IV antibiotics. - Diagnoses Provider Diagnoses: Gangrene of lower extremity - Physician Notifications Discussed Care Of Patient With: Josiah Jolley Time Discussed With Above Provider: 18:24 Instructed by Provider To: Other - Dr. Jolley was consulted on patient's case at 18:24. Dr. Jolley agrees to accept patient for admission. - Critical Care Time Critical Care Time: 30-74 min Discharge - Sign-Out/Discharge Documenting (check all that apply): Patient Departure - admit - Discharge Plan Condition: Good Disposition: ADMITTED TO [facility] Referrals: Brandi Moulton [Primary Care Provider] - - Billing Disposition and Condition Condition: GOOD Disposition: Admitted to [facility]
--- OUTSIDE RECORDS SUMMARY | 2017-10-27 16:25 | XMS REPORT ---
:1940 External Reference #:[id number] Author Organization [facility] Social[employer] Address [address] [address] Phone [phone] Care Team Providers Name Role Phone Almaz Hamilton, MelbaN.P. Primary Care Physician Unavailable Payers Type Date Identification Numbers Payment Provider Subscriber Medicare Primary Policy Number: [id number] Medicare Leticia Boss PayID: [id number] [facility] [address] [place] [address] Problems Date Description Provider Status Onset: 10/05/2017 Multi vessel coronary artery disease Deanna Perez M.D. Active Onset: 10/05/2017 Cardiomyopathy, unspecified Deanna Perez M.D. Active Onset: 10/05/2017 Hyperlipidemia Deanna Perez M.D. Active Onset: 10/05/2017 Essential hypertension Deanna Perez M.D. 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 Cigarette Use current cigarette smoker ETOH Use Denies alcohol use Smoking Heavy tobacco smoker (more x 30 years, still continues than 10 cigarettes/day) to smoke 1/2 ppd Recreational Drug Use Denies Drug Use Daily Caffeine Consumes on average 1 cup of half caff per day - more regular coffee per day than one Exercise Type/Frequency Does not exercise Allergies, Adverse Reactions, Alerts Date Description Reaction Status Severity Comments 08/03/2017 NKDA active Medications Medication Date Status Form Strength Qnty SIG Indications Ordering Provider Entresto Active Tablets 24-26mg 60tabs take 1 Roseann S. 018 tab by Foster, mouth N.P. twice daily (pt not taking) Diovan Active Tablets 40mg 30tabs 1 tab by Roseann S. 018 mouth Foster, every N.P. day Crestor Active Tablets 5mg 30tabs 1/2 by E78.5 Roseann S. 018 mouth 3x Foster, a week N.P. Oxygen Active Misc 1units please Roseann Anderson use o2 Foster, at N.P. 2l/min at night Lasix Active Tablets 20mg 30tabs 1 tab by I42.9 Roseann S. 018 mouth Foster, daily N.P. Carvedilol Active Tablets 6.25mg 1 by Unknown 000 mouth twice a day Spironolactone Active Tablets 25mg 1 by Unknown 000 mouth every day Aspirin Active Tablets 81mg [address] mouth "several times a day as needed" Atorvastatin Hx Tablets 40mg 1/2 tab Unknown Calcium 000 - by mouth every 018 day Lisinopril Hx Tablets 5mg 1 by Unknown 000 - mouth every 018 day (On Hold 08/07) Potassium Hx Tablets 20Meq Take One Unknown Chloride Libby ER 000 - ER Tablet By Mouth 018 Every Day Enalapril Maleate Hx Tablets 10mg 1 by Unknown 000 - mouth every 018 day Vital Signs Date Vital Result Comment 10/05/2017 Height 65 inches 5'5" Weight 123.50 lb with shoes Heart Rate 88 /min BP Systolic Sitting 158 mmHg Rue reg cuff BP Diastolic Sitting 78 mmHg Rue reg cuff BP Systolic Standing 140 mmHg Rue reg cuff BP Diastolic Standing 80 mmHg Rue reg cuff Respiratory Rate 16 /min BMI (Body Mass Index) 20.5 kg/m2 Ejection Fraction 30% 09/15/2017-echo 09/05/2017 Height 65 inches 5'5" Weight 126.00 lb w/ shoes Heart Rate 98 /min reg BP Systolic Sitting 150 mmHg Rue reg cuff BP Diastolic Sitting 70 mmHg Rue reg cuff BP Systolic Standing 124 mmHg Rue BP Diastolic Standing 76 mmHg Rue Respiratory Rate 16 /min BMI (Body Mass Index) 21.0 kg/m2 Ejection Fraction 25-30% as of 07/2017 echo 08/03/2017 Height 65 inches 5'5" Weight 132.00 lb Heart Rate 84 /min BP Systolic Sitting 98 mmHg Lue reg cuff BP Diastolic Sitting 72 mmHg Lue reg cuff BP Systolic Standing 96 mmHg Lue BP Diastolic Standing 70 mmHg Lue Respiratory Rate 16 /min BMI (Body Mass Index) 22.0 kg/m2 Ejection Fraction 25-30% 07/26/17 Results Test Date Test Result H/L Range Note Basic Metabolic Panel 09/28/2017 Sodium 134 mmol/L Low 135-145 Potassium 4.5 mmol/L 3.5-5.0 Chloride 98 mmol/L Low 101-111 Co2 Carbon Dioxide 28 mmol/L 22-32 Anion Gap 8 mmol/L 2-11 Glucose 96 mg/dL 70-100 Blood Urea Nitrogen 17 mg/dL 6-24 Creatinine 1.06 mg/dL High 0.51-0.95 BUN/Creatinine Ratio 16.0 8-20 Calcium 9.6 mg/dL 8.6-10.3 Egfr Non- 50.3 >60 Egfr 60.8 >60 1 Comp Metabolic Panel 09/12/2017 Sodium 134 mmol/L Low 135-145 2 Potassium 4.6 mmol/L 3.5-5.0 2 Chloride 98 mmol/L Low 101-111 2 Co2 Carbon Dioxide 28 mmol/L 22-32 2 Anion Gap 8 mmol/L 2-11 2 Glucose 136 mg/dL High 70-100 2 Blood Urea Nitrogen 19 mg/dL 6-24 2 Creatinine 1.06 mg/dL High 0.51-0.95 2 BUN/Creatinine Ratio 17.9 8-20 2 Calcium 9.6 mg/dL 8.6-10.3 2 Total Protein 6.6 g/dL 6.4-8.9 2 Albumin 3.7 g/dL 3.2-5.2 2 Globulin 2.9 g/dL 2-4 2 Albumin/Globulin Ratio 1.3 1-3 2 Total Bilirubin 0.50 mg/dL 0.2-1.0 2 Alkaline Phosphatase 71 U/L 34-104 2 Alt 13 U/L 7-52 2 Ast 21 U/L 13-39 2 Egfr Non- 50.3 >60 2 Egfr 64.6 >60 2, 3 Lipid Profile (Trig/Chol/HDL) 09/12/2017 Triglycerides 157 mg/dL 2, 4 Cholesterol 180 mg/dL 2, 5 HDL Cholesterol 44.8 mg/dL 2, 6 LDL Cholesterol 104 mg/dL 2, 7 Laboratory test finding 09/12/2017 Creatine Kinase(CK) 43 U/L 10-223 2, 8 B-Type Natriuretic Peptide BNP 638 pg/mL High 2, 9 Lipid Panel - [facility] 09/05/2017 Creatine Kinase(CK) <pending> Laboratory test finding 09/05/2017 B-Type Natriuretic <pending> Peptide BNP Basic Metabolic Panel 08/16/2017 Sodium 134 mmol/L Low 139-145 Chloride 96 mmol/L Low 101-111 Co2 Carbon Dioxide 30 mmol/L 22-32 Glucose 107 mg/dL High 70-100 Blood Urea Nitrogen 20 mg/dL 6-24 Creatinine 1.11 mg/dL High 0.51-0.95 BUN/Creatinine Ratio 18.0 8-20 Calcium 9.3 mg/dL 8.6-10.3 Egfr Non- 47.7 >60 Egfr 61.3 >60 10 Potassium 5.1 mmol/L High 3.5-5.0 Anion Gap 8 mmol/L 2-11 Basic Metabolic Panel 08/07/2017 Sodium 138 mmol/L Low 139-145 Potassium 5.0 mmol/L 3.5-5.0 Chloride 102 mmol/L 101-111 Co2 Carbon Dioxide 30 mmol/L 22-32 Anion Gap 6 mmol/L 2-11 Glucose 100 mg/dL 70-100 Blood Urea Nitrogen 18 mg/dL 6-24 Creatinine 1.20 mg/dL High 0.51-0.95 BUN/Creatinine Ratio 15.0 8-20 Calcium 9.4 mg/dL 8.6-10.3 Egfr Non- 43.6 >60 Egfr 56.0 >60 11 Laboratory test finding 08/03/2017 B-Type Natriuretic 1509 pg/mL High 12 Peptide BNP Basic Metabolic Panel 08/03/2017 Sodium 138 mmol/L Low 139-145 Chloride 102 mmol/L 101-111 Co2 Carbon Dioxide 30 mmol/L 22-32 Glucose 104 mg/dL High 70-100 Blood Urea Nitrogen 19 mg/dL 6-24 Creatinine 1.11 mg/dL High 0.51-0.95 BUN/Creatinine Ratio 17.1 8-20 Calcium 9.2 mg/dL 8.6-10.3 Egfr Non- 47.7 >60 Egfr 61.3 >60 13 Potassium 5.9 mmol/L High 3.5-5.0 Anion Gap 6 mmol/L 2-11 1 Because ethnic data is not always readily available, this report includes an eGFR for both -Americans and non- Americans. The National Kidney Disease Education Program (NKDEP) does not endorse the use of the MDRD equation for patients that are not between the ages of 18 and 70, are , have extremes of body size, muscle mass, or nutritional status, or are non- or non-. According to the National Kidney Foundation, irrespective of diagnosis, the stage of the disease is based on the level of kidney function: Stage Description GFR(mL/min/1.73 m(2)) 1 Kidney damage with normal or decreased GFR 90 2 Kidney damage with mild decrease in GFR 60-89 3 Moderate decrease in GFR 30-59 4 Severe decrease in GFR 15-29 5 Kidney failure <15 (or dialysis) 2 PT HAD MILK IN HER COFFEE 3 Because ethnic data is not always readily available, this report includes an eGFR for both -Americans and non- Americans. The National Kidney Disease Education Program (NKDEP) does not endorse the use of the MDRD equation for patients that are not between the ages of 18 and 70, are , have extremes of body size, muscle mass, or nutritional status, or are non- or non-. According to the National Kidney Foundation, irrespective of diagnosis, the stage of the disease is based on the level of kidney function: Stage Description GFR(mL/min/1.73 m(2)) 1 Kidney damage with normal or decreased GFR 90 2 Kidney damage with mild decrease in GFR 60-89 3 Moderate decrease in GFR 30-59 4 Severe decrease in GFR 15-29 5 Kidney failure <15 (or dialysis) 4 Desirable: <150 Borderline High: 150-199 High: 200-499 Very High: >500 5 Desirable: <200 Borderline High: 200-239 High: >239 6 Low: <40 Desirable: 40-60 High: >60 7 Desirable: <100 Near Optimal: 100-129 Borderline High: 130-159 High: 160-189 Very High: >189 8 PT HAD MILK IN HER COFFEE 9 >100 to <200 pg/mL: likely compensated congestive heart failure (CHF) 200 to 400 pg/mL: likely moderate CHF >400 pg/mL: likely moderate to severe CHF 10 Because ethnic data is not always readily available, this report includes an eGFR for both -Americans and non- Americans. The National Kidney Disease Education Program (NKDEP) does not endorse the use of the MDRD equation for patients that are not between the ages of 18 and 70, are , have extremes of body size, muscle mass, or nutritional status, or are non- or non-. According to the National Kidney Foundation, irrespective of diagnosis, the stage of the disease is based on the level of kidney function: Stage Description GFR(mL/min/1.73 m(2)) 1 Kidney damage with normal or decreased GFR 90 2 Kidney damage with mild decrease in GFR 60-89 3 Moderate decrease in GFR 30-59 4 Severe decrease in GFR 15-29 5 Kidney failure <15 (or dialysis) 11 Because ethnic data is not always readily available, this report includes an eGFR for both -Americans and non- Americans. The National Kidney Disease Education Program (NKDEP) does not endorse the use of the MDRD equation for patients that are not between the ages of 18 and 70, are , have extremes of body size, muscle mass, or nutritional status, or are non- or non-. According to the National Kidney Foundation, irrespective of diagnosis, the stage of the disease is based on the level of kidney function: Stage Description GFR(mL/min/1.73 m(2)) 1 Kidney damage with normal or decreased GFR 90 2 Kidney damage with mild decrease in GFR 60-89 3 Moderate decrease in GFR 30-59 4 Severe decrease in GFR 15-29 5 Kidney failure <15 (or dialysis) 12 >100 to <200 pg/mL: likely compensated congestive heart failure (CHF) 200 to 400 pg/mL: likely moderate CHF >400 pg/mL: likely moderate to severe CHF 13 Because ethnic data is not always readily available, this report includes an eGFR for both -Americans and non- Americans. The National Kidney Disease Education Program (NKDEP) does not endorse the use of the MDRD equation for patients that are not between the ages of 18 and 70, are , have extremes of body size, muscle mass, or nutritional status, or are non- or non-. According to the National Kidney Foundation, irrespective of diagnosis, the stage of the disease is based on the level of kidney function: Stage Description GFR(mL/min/1.73 m(2)) 1 Kidney damage with normal or decreased GFR 90 2 Kidney damage with mild decrease in GFR 60-89 3 Moderate decrease in GFR 30-59 4 Severe decrease in GFR 15-29 5 Kidney failure <15 (or dialysis) Procedures Date CPT Code Description Status 09/15/2017 72189 Echocardiogram, Limited Study Completed 09/15/2017 82489 Echocardiogram, Limited Study Completed 07/27/2017 20711 Intravascular Blood Flow Velocity Completed 07/27/2017 15406 Cath PLMT&NJX L Ventriculog Img S&I Completed 07/26/2017 78693 EKG, Interpretation Only Completed 07/26/2017 79790 ECHO Transthorasic Realtime 2D W Doppler & Color Flow Completed Hosp Encounters Type Date Location Provider CPT E/M Dx Office Visit 09/05/2017 [facility] Roseann EndyNorbert Davis, N.P. 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 I42.9 I10 Z72.0 Office Visit 07/29/2017 4:41p [facility] Mayur Bautista, 45345 I63.40 MViviana Z71.6 Office Visit 07/29/2017 3:47p [facility], Josiah Jolley, 56618 I50.9 Lorriists Neil J96.01 I16.0 N17.9 Office Visit 07/28/2017 9:50a [facility] Margi Boyd, 88312 I63.40 Neil Z71.6 Office Visit 07/28/2017 3:28p [facility] [place] [address] I50.20 [facility] I42.9 Office Visit 07/28/2017 3:47p [facility] Josiah Jolley, 83164 I50.9 Hospitalists Neil J96.01 I16.0 N17.9 Office Visit 07/27/2017 3:46p [facility] Kari Shaw, N.P. 50141 I50.9 Hospitalists J96.01 I16.0 N17.9 Office Visit 07/26/2017 1:51p [facility] Deanna Perez M.D. 12583 I42.9 [facility] R94.31 R79.89 Z72.0 Z82.49 I50.9 [facility]/26/2017 [facility] [address] I50.9 Hospitalists J96.01 I16.0 N17.9 Office Visit 07/25/2017 3:36p [facility] [address] I50.9 Hospitalists J96.01 I16.0 N17.9 Plan of Care Future Appointment(s):12/12/2017 3:30 pm - Roseann Davis N.P. at [facility]12/06/2017 3:00 pm - [facility] ECHO Schedule at [facility]10/05/2017 - Deanna Perez M.D.I42.9 Cardiomyopathy, unspecifiedNew Orders :EchocardiogramComments:New echo shows strength just a bit better: EF 30%.This puts you at risk for serious rhythm problems.Follow up:Give pt information printed on CM and ICD Have patient fill out paper work for Entresto with Nannette. OV MD Janet or CLINICAL DOCUMENTATION SPEC after echoRecommendations:Option of a defibrillator (ICD). This will shock your heart if you have lifethreatening rhythm problems Continue Carvedilol, spironolactone and lasix and diovan.I25.10 [facility] [place] [facility] [place] coronary artery w/o ang [id number] Essential (primary) hypertensionComments:Increase Diovan to full tablet (40 mg) daily.E78.5 Hyperlipidemia, unspecifiedComments:Continue Crestor as is for now.Z72.0 Tobacco useComments:I strongly recommend completely stopping cigarettes. The hip pain might be blockages in the blood vessesl supplying the legs.
[2017-10-27 16:51] LABS: ABS Basophils 0.1 10^3/ul (0-0.2); ABS Eosinophils 0.1 10^3/ul (0-0.6); ABS Lymphocytes 1.1 10^3/ul (1.0-4.8); ABS Monocytes 0.5 10^3/ul (0-0.8); ABS Nucleated RBC 0 10^3/ul; Hematocrit 40 % (35-47); Hemoglobin 13.6 g/dl (12.0-16.0); Lymphocyte % 10.4 % (25-47); Mean Corpuscular HGB Conc 34 g/dl (31-36); Mean Corpuscular Hemoglobin 31 pg (27-31); Mean Corpuscular Volume 92 fL (80-97); Mean Platelet Volume 6.8 um3 (7.4-10.4); Nucleated Red Blood Cells % 0; Platelet Count 351 10^3/ul (150-450); Red Blood Count 4.35 10^6/ul (4.00-5.40); Red Cell Distribution Width 15 % (10.5-15); White Blood Count 10.7 10^3/ul (3.5-10.8)
[2017-10-27 17:06] LABS: INR 1.03 (0.77-1.02)
[2017-10-27 17:08] LABS: EGFR Non-African American 33.7 (>60)
[2017-10-27] MEDS ORDERED: Iodixanol* (CONTRAST) 320 MG/ML 100 ML SDV IV ONE (17:11)
--- NOTE | 2017-10-27 18:17 | RAD ---
INDICATION: Left lower leg infection COMPARISON: None. TECHNIQUE: CT examination of the left lower leg after the administration of 100 mL of Visipaque 320. Axial images were acquired and sagittal and coronal reformats were created and independently analyzed. FINDINGS: Overlying the upper half of the anterior left lower leg there is infiltration and subcutaneous gas that abuts the anterior border of the anterior muscle compartment. There is no gas in the underlying musculature in the anterior lower leg. The visualized bones are intact and appropriately aligned. There is no cortical destruction to indicate osteomyelitis. There is scattered calcified atherosclerosis most severely affecting the popliteal artery. IMPRESSION: CT findings are consistent with gas forming superficial infection of the left lower anterior leg. There is no CT evidence of gas forming infection in the anterior musculature or signs of osteomyelitis.
[2017-10-27] MEDS ORDERED: Cefepime(*) 1 GM in NS 0.9% 50 ML* 50 ML IVPB ONE (18:23)
[2017-10-27] MEDS ORDERED: Vancomycin(*) 1,000 MG in NS 0.9% 250 ML* 250 ML IVPB ONE (18:23)
[2017-10-27] MEDS ORDERED: Vancomycin(*) 1,000 MG in NS 0.9% 250 ML* 250 ML IVPB SCH (19:48)
[2017-10-27] MEDS ORDERED: Vancomycin per Pharmacy* NOTE FOLLOW UP SCH (20:00)
[2017-10-27] MEDS ORDERED: Nicotine Inhaler* 10 MG AMP INH PRN (20:21)
[2017-10-27] MEDS ORDERED: Mouth Piece, Nicotine* 1 EACH CARTRIDGE INH ONE (20:21)
[2017-10-27] MEDS ORDERED: Cefepime 1 GM in Dextrose(*) 1 GM/50 ML BAG IV ONE (20:30)
[2017-10-27] MEDS: Heparin VIAL(*) 5000 UNITS/ML VIAL (FIVE THOUSAND) SUBCUT SCH (22:28)
[2017-10-27] MEDS: Carvedilol TAB* 6.25 MG PO SCH (22:29)
--- NOTE | 2017-10-28 00:16 | HP ---
CC: Brandi Moulton NP * HISTORY AND PHYSICAL: DATE OF ADMISSION: 10/27/17. PRIMARY CARE PROVIDER: Brandi Moulton NP. ATTENDING PHYSICIAN: Dr. Alena Gibbs * (dictated by Cande Ochoa NP). CHIEF COMPLAINT: Left linares wound. HISTORY OF PRESENT ILLNESS: Ms. Boss is a 76-year-old female with past medical history significant for depression, systolic congestive heart failure, nonobstructive coronary artery disease, hypertension, anxiety, tobacco abuse, and polio at age 12, who states that she has for the most part been in her usual state of health. She reports falling and scraping her left linares approximately 2 months ago. She was keeping antibiotic ointment on the wound and the wound continued to be painful and got worse. In regard to the patient being unable to ambulate due to discomfort, she saw her primary care provider who started her on Bactrim approximately 1 week ago. The patient was referred to the [facility], who saw the patient today and recommended that she go to the emergency room for further evaluation. The patient denies any fevers, chills or chest pain. She has a chronic nonproductive cough. She denies shortness of breath. She reports some nausea after starting on the Bactrim, but she denies any vomiting. She denies any abdominal pain or diarrhea. She denies urinary symptoms. She reports a poor appetite, feels as though she has lost approximately 10 pounds over the last few weeks. She notes that she was hospitalized in July at which time she was diagnosed with systolic heart failure with an EF of 25% to 30%. She also underwent a cardiac catheterization at that time, showing nonobstructive coronary artery disease. During that admission, the patient also had cardioembolic event postcardiac catheterization, was seen by neurology. The patient also reports that the discomfort in her leg is worse when her leg is up and is improved when her leg is down. She often feels as though her left extremity is cool to the touch and slightly red in color. It is also to note that after her last hospitalization, the patient has been on 2 L nasal cannula at bedtime. While in the emergency room, the patient had a CT scan showing findings consistent with gas-forming, superficial infection of the left lower anterior leg. There was no CT evidence of gas-forming infection in the anterior musculature, signs of osteomyelitis. The patient had labs showing no leukocytosis. She noted to have hyponatremia. Her creatinine above her baseline, CRP of 116.79. Hospitalists were asked to evaluate the patient for admission. PAST MEDICAL HISTORY: 1. Depression. 2. Systolic congestive heart failure, last EF 25% to 30%. 3. Hypertension. 4. Anxiety. 5. Polio at age 12. 6. Tobacco abuse. 7. Nonobstructive coronary artery disease. PAST SURGICAL HISTORY: Status post cardiac catheterization in July 2017. MEDICATIONS: Home medications include: 1. Bactrim DS 800/160 mg oral twice daily. 2. Carvedilol 6.25 mg oral twice daily. 3. Crestor 5 mg oral at bedtime. 4. Lisinopril 2.5 mg oral daily. 5. Furosemide 20 mg oral daily. 6. Aspirin 81 mg oral daily. 7. Spironolactone 25 mg oral daily. 8. Potassium chloride 20 mEq oral daily. ALLERGIES: No known drug allergies, but ASPIRIN in high doses causes bruising. FAMILY HISTORY: The patient's mother had suspected heart disease, she passed in her 70s. She denies any family history of diabetes or cancer. SOCIAL HISTORY: The patient is a current smoker smoking approximately a pack a day. She has over a 30-year smoking history. She denies alcohol or recreational drug use. Her son, Chemo Boss, and , Osmel, will be her surrogate decision makers in the event she is unable to make decisions for herself. REVIEW OF SYSTEMS: I performed an 11-point review of systems. All the pertinent positives and negatives are mentioned in the history of present illness. The remaining review of systems are negative. PHYSICAL EXAMINATION GENERAL APPEARANCE: The patient is alert, pleasant, and appears to be in no acute distress. VITAL SIGNS: Temperature 97.9, heart rate 68, respiratory rate 20, O2 saturation 98% on 3 L via nasal cannula, blood pressure 155/69. HEENT: Normocephalic, atraumatic. Pupils are equal and reactive to light. Extraocular movements are intact. RESPIRATORY: There is no accessory muscle use and the lungs are clear to auscultation bilaterally. CARDIOVASCULAR: Regular rate and rhythm. S1 and S2 present. There are no murmurs, rubs or gallops heard. ABDOMEN: Soft, nontender, nondistended. There are bowel sounds present x4. EXTREMITIES: There is a trace left lower extremity edema in the foot. No tibial edema bilaterally. There is 1+ pulses to the right lower extremity and unable to palpate DP or PT pulses on the left lower extremity. MUSCULOSKELETAL: There is no clubbing or cyanosis noted. The patient exhibits good strength in all extremities. NEUROLOGIC: The patient is alert and oriented x4. Cranial nerves II through XII are grossly intact. PSYCHOLOGICAL: The patient is calm and cooperative. SKIN: The patient has a large skin tear near the base of the left side of her neck and clavicle. The patient has a large area of eschar to her left linares approximately 12.2 x 4 cm. The area appears to be dry and at this time there is no drainage. DIAGNOSTIC STUDIES/LAB DATA: Sodium 126, potassium 4.9, chloride 93, CO2 of 24 , BUN 23, creatinine 1.50, glucose 126. White blood cell count 10.7, hemoglobin 13.6, hematocrit 40, and platelet count 351. CRP 116.79. Lower extremity CT from today: Radiologist Impression: CT findings are consistent with gas-forming superficial infection of the left lower anterior leg. There is no CT evidence of gas-forming infection in the anterior musculature or signs of osteomyelitis. IMPRESSION: Ms. Boss is a 76-year-old female with past medical history significant for depression, systolic congestive heart failure, last ejection fraction of 25% to 30%, hypertension, anxiety, polio, tobacco abuse, and nonobstructive coronary artery disease, who presented to the emergency room with a non-healing left lower extremity wound appeared to be admitted inpatient for necrotic left lower extremity wound. ASSESSMENT/PLAN: 1. Necrotic left lower extremity wound. The patient's wound has been present for approximately 2 months. Wound cultures were obtained at the wound clinic showing 1+ epithelial cells, 2+ neutrophils, 4+ gram-positive cocci and 3+ gram- negative bacilli. There is a foul smell from the wound. She had a CT of her lower extremity showing no evidence of fasciitis or osteomyelitis. I suspect that the patient has poor arterial circulation as the foot is slightly red in color and painful when elevated and the pain improves when her leg is down. I am going to get ABIs to evaluate her circulation. After ABIs have been obtained , based of their findings, we will consider consulting Dr. Mohan or Dr. Gardner for possible vascular intervention. General Surgery will also consult on the patient to see if she is a candidate for possible debridement, but no debridement will be done until we are sure of the patient's circulation status. For now, we need Santyl daily to her areas of eschar with a loose dressing, we will avoid compression and tape on the skin, and continue the patient on cefepime and vancomycin for now. She has had blood cultures done in the emergency room. She currently is afebrile, has no leukocytosis or signs of sepsis. The patient will likely benefit from a CTA with runoff, but due to her creatinine, we will hold off this at this time. She is not a diabetic, her HgA1C was 6.2 in July of 2017. 2. Hyponatremia. I suspect the patient could have a component of hypovolemia as she reports not eating or drinking much. Additionally, she is on Lasix and spironolactone. I am going to hold these and recheck her labs in the morning and restart accordingly and going to hold off on IV fluids at this time. 3. Uxpzj-pr-wzjmwpv kidney injury. The patient's creatinine is elevated above her baseline. I am going to hold her spironolactone and furosemide. Recheck her labs tomorrow and see if they are improving, for now I am going to continue her on her lisinopril. 4. Systolic congestive heart failure. The patient's last ejection fraction was 25% to 30% in July 2017. She will have strict I's and O's, daily weights. As mentioned above, I am going to hold her spironolactone and furosemide overnight and resume 1 in the morning if her labs are improving. If she receives IV fluids, we should be cautious in giving them. She will be continued on her carvedilol. 5. Nonobstructive coronary artery disease. The patient will be continued on her home carvedilol, Crestor or other substitute available at the hospital, and aspirin. 6. Tobacco abuse. The patient has been encouraged to stop smoking. She will have a nicotine inhaler available as needed. 7. Hypertension. The patient had labile blood pressures while in the emergency room anywhere from the 90s to about 150s. Continue her on her home lisinopril and carvedilol. I am going to hold her furosemide and spironolactone for now. Resume when able. 8. Fluids, electrolytes, and nutrition. She will be on a low-sodium diet. 9. Code status. Do not resuscitate. She has a MOLST on file. 10. DVT prophylaxis. She is at high risk. She will have subcu heparin. 11. Disposition: Inpatient. TIME SPENT: Time for this admission was approximately 60 minutes and greater than half of that was spent with the patient and her family, discussing medications, past medical history, and the events leading up to her arrival today and performing a physical examination. The case was then reviewed with the attending, Dr. Gibbs, who agrees with the plan of care. Reviewed by ANDRIY EDWARD 11/01/17 1800 [id number]/CPS #: [id number] EMLVIN
[2017-10-28 06:08] LABS: ABS Basophils 0 10^3/ul (0-0.2); ABS Eosinophils 0.1 10^3/ul (0-0.6); ABS Lymphocytes 1.2 10^3/ul (1.0-4.8); ABS Monocytes 0.6 10^3/ul (0-0.8); ABS Neutrophils 6.8 10^3/ul (1.5-7.7); ABS Nucleated RBC 0 10^3/ul; Eosinophil % 1.3 % (0-6); Hematocrit 38 % (35-47); Hemoglobin 12.9 g/dl (12.0-16.0); Lymphocyte % 13.7 % (25-47); Mean Corpuscular HGB Conc 34 g/dl (31-36); Mean Corpuscular Hemoglobin 31 pg (27-31); Mean Corpuscular Volume 91 fL (80-97); Mean Platelet Volume 6.7 um3 (7.4-10.4); Nucleated Red Blood Cells % 0.1; Platelet Count 299 10^3/ul (150-450); Red Blood Count 4.16 10^6/ul (4.00-5.40); Red Cell Distribution Width 15 % (10.5-15); White Blood Count 8.7 10^3/ul (3.5-10.8)
[2017-10-28] MEDS: Heparin VIAL(*) 5000 UNITS/ML VIAL (FIVE THOUSAND) SUBCUT SCH ×3 (06:23→21:47)
[2017-10-28 06:24] LABS: EGFR Non-African American 39.7 (>60)
[2017-10-28] MEDS: Carvedilol TAB* 6.25 MG PO SCH ×2 (08:58→21:46)
[2017-10-28] MEDS: Potassium Chlor TAB* 20 MEQ TAB.ER PO SCH ×2 (08:58→09:10)
[2017-10-28] MEDS: Lisinopril TAB* 5 MG PO SCH (08:59)
[2017-10-28] MEDS: Vancomycin(*) 500 MG in NS 0.9% 250 ML* 250 ML IVPB SCH ×2 (09:10→20:04)
[2017-10-28] MEDS: Collagenase 250 MG/GM OINT* 30 GM TOPICAL SCH (09:15)
--- NOTE | 2017-10-28 09:33 | CONSULT ---
Consult Consult: Surgery Consult Asked to evaluate a pt. with a wound on the left leg. Ms. Boss is a 76 y.o. female who reports she fell and scraped her leg about 2 months ago. She was managing it okay, but then over the course of a week it started to look worse. She went to her primary who started antibiotics and sent her to the wound center. From there she was sent to the ER and was admitted. She has been on abx since admission yesterday. She says the leg still hurts. She is pretty sure she has "circulation problems". PMHx: heart disease, depression, HTN, h/o polio Meds: see med rec ALL: asa SH: currently smokes 1ppd and has for 60 years; neg. EtOH, neg. IVDA FH: CAD PE: general: elderly female in NAD Vital Signs - 12 hr Temp Pulse Resp BP Pulse Ox 10/28/17 04:05 98.3 F 78 21 129/47 10/28/17 04:00 98.3 F 78 21 129/47 100 10/27/17 23:31 98.1 F 80 20 119/38 97 LLE: Large (~10 x 4 cm) area of eschar over somewhat boggy tissue. There is an area ~2 cm in diameter of eschar in the center which has lifted off the underlying tissue. There is no drainage due to the adherent nature of the eschar. I do not appreciate pulses of the left foot. Laboratory Results - last 24 hr 10/27/17 10/27/17 10/27/17 16:37 16:37 16:37 WBC 10.7 RBC 4.35 Hgb 13.6 Hct 40 MCV 92 MCH 31 MCHC 34 RDW 15 Plt Count 351 MPV 6.8 L Neut % (Auto) 83.4 H Lymph % (Auto) 10.4 L [place] % (Auto) 4.4 Eos % (Auto) 1.0 Baso % (Auto) 0.8 Absolute Neuts (auto) 9.0 H Absolute Lymphs (auto) 1.1 Absolute Monos (auto) 0.5 Absolute Eos (auto) 0.1 Absolute Basos (auto) 0.1 Absolute Nucleated RBC 0 Nucleated RBC % 0 INR (Anticoag Therapy) 1.03 H Sodium 126 L Potassium 4.9 Chloride 93 L Carbon Dioxide 24 Anion Gap 9 BUN 23 Creatinine 1.50 H Est GFR ( Amer) 40.7 Est GFR (Non-Af Amer) 33.7 BUN/Creatinine Ratio 15.3 Glucose 126 H Serum Osmolality Lactic Acid Calcium 9.5 Total Bilirubin 0.30 AST 21 ALT 14 Alkaline Phosphatase 67 C-Reactive Protein 116.79 H Total Protein 7.6 Albumin 3.5 Globulin 4.1 H Albumin/Globulin Ratio 0.9 L 10/27/17 10/28/17 10/28/17 16:37 05:45 05:45 WBC 8.7 RBC 4.16 Hgb 12.9 Hct 38 MCV 91 MCH 31 MCHC 34 RDW 15 Plt Count 299 MPV 6.7 L Neut % (Auto) 77.3 Lymph % (Auto) 13.7 L [place] % (Auto) 7.2 H Eos % (Auto) 1.3 Baso % (Auto) 0.5 Absolute Neuts (auto) 6.8 Absolute Lymphs (auto) 1.2 Absolute Monos (auto) 0.6 Absolute Eos (auto) 0.1 Absolute Basos (auto) 0 Absolute Nucleated RBC 0 Nucleated RBC % 0.1 INR (Anticoag Therapy) Sodium 126 L Potassium 4.8 Chloride 96 L Carbon Dioxide 23 Anion Gap 7 BUN 21 Creatinine 1.30 H Est GFR ( Amer) 48.1 Est GFR (Non-Af Amer) 39.7 BUN/Creatinine Ratio 16.2 Glucose 103 H Serum Osmolality Lactic Acid 1.0 Calcium 9.2 Total Bilirubin AST ALT Alkaline Phosphatase C-Reactive Protein Total Protein Albumin Globulin Albumin/Globulin Ratio 10/28/17 05:45 WBC RBC Hgb Hct MCV MCH MCHC RDW Plt Count MPV Neut % (Auto) Lymph % (Auto) [place] % (Auto) Eos % (Auto) Baso % (Auto) Absolute Neuts (auto) Absolute Lymphs (auto) Absolute Monos (auto) Absolute Eos (auto) Absolute Basos (auto) Absolute Nucleated RBC Nucleated RBC % INR (Anticoag Therapy) Sodium Potassium Chloride Carbon Dioxide Anion Gap BUN Creatinine Est GFR ( Amer) Est GFR (Non-Af Amer) BUN/Creatinine Ratio Glucose Serum Osmolality 276 Lactic Acid Calcium Total Bilirubin AST ALT Alkaline Phosphatase C-Reactive Protein Total Protein Albumin Globulin Albumin/Globulin Ratio A/P: 76 y.o. female with wound on LLE after traumatic injury. It is likely that her arterial insufficiency contributes to the worsening of the wound. She needs arterial evaluation and then intervention if possible. Then we will consider debridement. In the meantime I opened an area in the center of the eschar to allow release of pus. A small amount of purulent drainage emerged. Will follow. Thanks. Shaunna
[2017-10-28] MEDS ORDERED: Mouth Piece, Nicotine* 1 EACH CARTRIDGE ONE (10:43)
--- NOTE | 2017-10-28 10:55 | PN ---
Subjective Date of Service: 10/28/17 Interval History: Patient seen and examined at bedside. Denies fever, chills, shortness of breath , chest discomfort, N/V/D. Pt states that she feels like the pain in her left leg is worse since starting on IV ABX. Pt also feels like the room is cold and asked for the heat to be turned up. Pt states that she continues to have a poor appetite. Family History: Unchanged from Admission Social History: Unchanged from Admission Past Medical History: Unchanged from Admission Objective Active Medications: Atorvastatin Calcium (Lipitor*) 40 mg PO 1700 [facility] Carvedilol (Coreg Tab*) 6.25 mg PO BID [facility] Collagenase (Santyl 250 Mg/Gm Oint*) 1 applic TOPICAL DAILY [facility] Heparin Sodium (Porcine) (Heparin Vial(*)) 5,000 units SUBCUT Q8HR [facility] Cefepime HCl (Maxipime 1 Gm In Dextrose Duplex (*)) 1 gm in 50 mls @ 100 mls/ hr IV Q24H [facility] Vancomycin HCl 500 mg/ Sodium (Chloride) 250 mls @ 166.667 mls/hr IVPB Q12H [facility] Lisinopril (Prinivil Tab*) 2.5 mg PO DAILY [facility] Nicotine (Nicotine Inhaler*) 10 mg INH Q2H PRN Reason: CRAVING Pharmacy Consult (Vancomycin Per Pharmacy*) 1 note FOLLOW UP .VANC PER PHARMACY [facility] Pharmacy Profile Note (Vancomycin Trough Check) 1 note FOLLOW UP 0800 ONE Stop: 10/29/17 08:01 Potassium Chloride (Klor Con Er Tab*) 20 meq PO DAILY [facility] Vital Signs - 8 hr 10/28/17 10/28/17 04:00 04:05 Temperature 98.3 F 98.3 F Pulse Rate 78 78 Respiratory 21 21 Rate Blood Pressure 129/47 129/47 (mmHg) O2 Sat by Pulse 100 Oximetry Oxygen Devices in Use Now: None Appearance: NAD, sitting up in bed Ears/Nose/Mouth/Throat: Mucous Membranes Moist Respiratory: Symmetrical Chest Expansion and Respiratory Effort, Clear to Auscultation Cardiovascular: NL Sounds; No Murmurs; No JVD, RRR Abdominal: NL Sounds; No Tenderness; No Distention Extremities: - - Trace left foot edema. No palpable pulse in the left foot Skin: - - Dressing to left LE with purulent drainage Neurological: Alert and Oriented x 3, NL Muscle Strength and Tone Lines/Tubes/Other Access: Clean, Dry and Intact Peripheral IV - site benign Nutrition: Taking PO's Result Diagrams: 10/28/17 05:45 10/28/17 05:45 Assess/Plan/Problems-Billing Assessment: Ms. Boss is a 76 yo female with PMH significant depression, systolic congestive heart failure, HTN, anxiety, polio, tobacco abuse, and nonobstructive coronary artery disease who presented to the emergency room with a non-healing wound of the left lower extremity. - Patient Problems (1) Wound of left lower extremity Code(s): S81.802A - UNSPECIFIED OPEN WOUND, LEFT LOWER LEG, INITIAL ENCOUNTER SNOMED Code(s): 472888322 Comment: - Non-healing wound for ~ 2 months - Large area of necrosis to left linares - ABIs penidng, suspect poor circulation contributing to non-healing - Wound and Blood cultures pending - General Surgery Consult, input appreciated - Continue Santyl dressings daily, cefepime, and vanco (2) Hyponatremia Code(s): E87.1 - HYPO-OSMOLALITY AND HYPONATREMIA SNOMED Code(s): 11074444 Comment: - Pt appears euvolemic - Suspect secondary to medications - Urine Osm and NA, pending - Continue to hold spironolactone and lasix - Will consider starting a fluid restriction if not improving tomorrow (3) Fbiwv-lr-gdhhuls kidney injury Code(s): N17.9 - ACUTE KIDNEY FAILURE, UNSPECIFIED; N18.9 - CHRONIC KIDNEY DISEASE, UNSPECIFIED SNOMED Code(s): 283452916 Comment: - Stage 3 at baseline - Creatinine improving after holding spironolactone and Lasix (4) Systolic heart failure Code(s): I50.20 - UNSPECIFIED SYSTOLIC (CONGESTIVE) HEART FAILURE SNOMED Code( s): 045246454 Comment: - No signs of acute exacerbation at this time - Daily weights and strict I+O's - Resume Lasix in AM and continue to hold Spironolactone (5) Coronary artery disease Code(s): I25.10 - ATHSCL HEART DISEASE OF [place] CORONARY ARTERY W/O ANG PCTRS SNOMED Code(s): 18113365 Comment: - Asymptomatic at this time - Continue carvediolol, crestor, and ASA (6) HTN (hypertension) Code(s): I10 - ESSENTIAL (PRIMARY) HYPERTENSION SNOMED Code(s): 92155800 Comment: - SBP 110-150's - Continue lisinopril and carvedilol - Resume lasix in the AM and continue to hold spironolactone (7) Tobacco abuse Code(s): Z72.0 - TOBACCO USE SNOMED Code(s): 586488537 Comment: - Pt advised to quit smoking and avoid second hand smoke - Continue Nicotine replacement (8) DVT prophylaxis Code(s): DUU8487 - SNOMED Code(s): 880708999 Comment: - Heparin SQ (9) DNR (do not resuscitate) Status and Disposition: Inpatient. Discharge to home when medically stable, suspect in 3-5 days.
[2017-10-28] MEDS: Acetaminophen TAB* 325 MG PO PRN (11:53)
[2017-10-28] MEDS ORDERED: Atorvastatin* 40 MG TAB PO SCH (17:00)
[2017-10-28] MEDS: Cefepime 1 GM in Dextrose(*) 1 GM/50 ML BAG IV SCH (22:23)
[2017-10-29] MEDS: Heparin VIAL(*) 5000 UNITS/ML VIAL (FIVE THOUSAND) SUBCUT SCH ×3 (05:55→22:27)
[2017-10-29 07:55] LABS: EGFR Non-African American 45.3 (>60)
[2017-10-29] MEDS ORDERED: Vancomycin Trough Check NOTE FOLLOW UP ONE (08:00)
--- NOTE | 2017-10-29 09:07 | PN ---
Subjective Date of Service: 10/29/17 Interval History: Patient seen and examined at bedside. Denies fever, chills, shortness of breath , chest discomfort, N/V/D. Pt states her appetite is improving but continues to be decreased. She continues to have left LE pain that is improved when her foot is down. She also notes that the color of her left foot changes based on if she has had it down of up on the bed. The left LE is painful if touched. She is anxious to get home, but understands that she needs to be here and complete the work-up for her wound. Family History: Unchanged from Admission Social History: Unchanged from Admission Past Medical History: Unchanged from Admission Objective Active Medications: Acetaminophen (Tylenol Tab*) 650 mg PO Q4H PRN Reason: FEVER/PAIN Aspirin (Aspirin 81 Mg Chew Tab*) 81 mg PO DAILY [facility] Carvedilol (Coreg Tab*) 6.25 mg PO BID [facility] Collagenase (Santyl 250 Mg/Gm Oint*) 1 applic TOPICAL DAILY [facility] Furosemide (Lasix Tab*) 20 mg PO DAILY [facility] Heparin Sodium (Porcine) (Heparin Vial(*)) 5,000 units SUBCUT Q8HR [facility] Cefepime HCl (Maxipime 1 Gm In Dextrose Duplex (*)) 1 gm in 50 mls @ 100 mls/ hr IV Q24H [facility] Vancomycin HCl 500 mg/ Sodium (Chloride) 250 mls @ 166.667 mls/hr IVPB Q12H [facility] Lisinopril (Prinivil Tab*) 2.5 mg PO DAILY [facility] Nicotine (Nicotine Inhaler*) 10 mg INH Q2H PRN Reason: CRAVING Pharmacy Consult (Vancomycin Per Pharmacy*) 1 note FOLLOW UP .VANC PER PHARMACY [facility] Potassium Chloride (Klor Con Er Tab*) 20 meq PO DAILY [facility] Rosuvastatin Calcium (Crestor (Nf)) 5 mg PO [id number]@2100 [facility]; Protocol Vital Signs - 8 hr 10/29/17 10/29/17 04:33 07:17 Temperature 97.5 F 98.2 F Pulse Rate 75 78 Respiratory 16 16 Rate Blood Pressure 128/43 146/53 (mmHg) O2 Sat by Pulse 97 97 Oximetry Oxygen Devices in Use Now: None Appearance: NAD, laying in bed Ears/Nose/Mouth/Throat: Mucous Membranes Moist Respiratory: Symmetrical Chest Expansion and Respiratory Effort, Clear to Auscultation Cardiovascular: NL Sounds; No Murmurs; No JVD, RRR Abdominal: NL Sounds; No Tenderness; No Distention Extremities: No Edema Skin: - - Large area of dry eschar to left anterior lower leg. Slight errythema to skin surrounding wound Neurological: Alert and Oriented x 3, NL Muscle Strength and Tone Lines/Tubes/Other Access: Clean, Dry and Intact Peripheral IV - site benign Nutrition: Taking PO's Result Diagrams: 10/28/17 05:45 10/29/17 07:32 Microbiology and Other Data: Microbiology 10/27/17 16:37 Aerobic Blood Culture - Preliminary Blood Venous No Growth Day 1 Anaerobic Blood Culture - Preliminary No Growth Day 1 10/27/17 16:37 Aerobic Blood Culture - Preliminary Blood Venous No Growth Day 1 Anaerobic Blood Culture - Preliminary No Growth Day 1 Microbiology 10/27/17 14:40 Leg Left Gram Stain - Final 10/27/17 14:40 Leg Left Wound Culture - Final Proteus Mirabilis Assess/Plan/Problems-Billing Assessment: Ms. Boss is a 76 yo female with PMH significant depression, systolic congestive heart failure, HTN, anxiety, polio, tobacco abuse, and nonobstructive coronary artery disease who presented to the emergency room with a non-healing wound of the left lower extremity. - Patient Problems (1) Wound of left lower extremity Code(s): S81.802A - UNSPECIFIED OPEN WOUND, LEFT LOWER LEG, INITIAL ENCOUNTER SNOMED Code(s): 268913463 Comment: - Non-healing wound for ~ 2 months - Afebrile and no leukocytosis - Large area of necrosis to left linares - ABIs penidng, suspect poor circulation contributing to non-healing - Wound culture with Proteus Mirabilis - Blood cultures, no growth day 1 - General Surgery Consult, input appreciated - Continue Santyl dressings daily and cefepime. Will discontinue vanco (2) Hyponatremia Code(s): E87.1 - HYPO-OSMOLALITY AND HYPONATREMIA SNOMED Code(s): 99990268 Comment: - Improving, Pt appears euvolemic - Suspect secondary to medications - Urine Osm 448 and NA 39 - Continue to hold spironolactone (3) Htvbo-hm-vpxohtm kidney injury Code(s): N17.9 - ACUTE KIDNEY FAILURE, UNSPECIFIED; N18.9 - CHRONIC KIDNEY DISEASE, UNSPECIFIED SNOMED Code(s): 042884878 Comment: - Stage 3 at baseline - Creatinine improving after holding spironolactone and Lasix (4) Systolic heart failure Code(s): I50.20 - UNSPECIFIED SYSTOLIC (CONGESTIVE) HEART FAILURE SNOMED Code( s): 950412133 Comment: - No signs of acute exacerbation at this time - Daily weights and strict I+O's - Resume Lasix and continue to hold Spironolactone (5) Coronary artery disease Code(s): I25.10 - ATHSCL HEART DISEASE OF [place] CORONARY ARTERY W/O ANG PCTRS SNOMED Code(s): 20917011 Comment: - Asymptomatic at this time - Continue carvediolol, crestor, and ASA (6) HTN (hypertension) Code(s): I10 - ESSENTIAL (PRIMARY) HYPERTENSION SNOMED Code(s): 72700555 Comment: - SBP 110-140's - Continue lisinopril and carvedilol - Resume lasix and continue to hold spironolactone (7) Tobacco abuse Code(s): Z72.0 - TOBACCO USE SNOMED Code(s): 840502151 Comment: - Pt advised to quit smoking and avoid second hand smoke - Continue Nicotine replacement (8) DVT prophylaxis Code(s): ZNT5235 - SNOMED Code(s): 170691988 Comment: - Heparin SQ (9) DNR (do not resuscitate) Status and Disposition: Inpatient. Discharge to home when medically stable, suspect in 3-5 days.
[2017-10-29] MEDS: Aspirin 81 mg CHEW TAB* 81 MG TAB.CHEW PO SCH (09:16)
[2017-10-29] MEDS: Vancomycin(*) 500 MG in NS 0.9% 250 ML* 250 ML IVPB SCH ×3 (09:16→20:18)
[2017-10-29] MEDS: Carvedilol TAB* 6.25 MG PO SCH ×2 (09:17→20:13)
[2017-10-29] MEDS: Potassium Chlor TAB* 20 MEQ TAB.ER PO SCH (09:17)
[2017-10-29] MEDS: Furosemide TAB* 20 MG PO SCH (09:17)
[2017-10-29] MEDS: Lisinopril TAB* 5 MG PO SCH (09:18)
[2017-10-29] MEDS: Collagenase 250 MG/GM OINT* 30 GM TOPICAL SCH (11:28)
--- NOTE | 2017-10-29 11:54 | RAD ---
Indication: Nonhealing wound left leg. Ankle-brachial index on the right is 0.10. Ankle-brachial index on the left could not BE obtained. IMPRESSION: Ankle-brachial index on the right is abnormal at 0.10. Ankle-brachial index on the left cannot BE obtained.
[2017-10-29] MEDS: Cefepime 1 GM in Dextrose(*) 1 GM/50 ML BAG IV SCH (22:27)
[2017-10-30] MEDS: Acetaminophen TAB* 325 MG PO PRN (00:37)
[2017-10-30] MEDS: Heparin VIAL(*) 5000 UNITS/ML VIAL (FIVE THOUSAND) SUBCUT SCH ×3 (06:07→21:06)
[2017-10-30] MEDS: Vancomycin(*) 500 MG in NS 0.9% 250 ML* 250 ML IVPB SCH (07:49)
--- NOTE | 2017-10-30 08:20 | PN ---
Subjective Date of Service: 10/30/17 Interval History: Patient seen and examined at bedside. Denies fever, chills, shortness of breath , chest discomfort, N/V/D. Pt continues to have discomfort in her left LE. Pt is anxious to get home, but understands that she needs to stay until all the testing is done. Family History: Unchanged from Admission Social History: Unchanged from Admission Past Medical History: Unchanged from Admission Objective Active Medications: Acetaminophen (Tylenol Tab*) 650 mg PO Q4H PRN Reason: FEVER/PAIN Aspirin (Aspirin 81 Mg Chew Tab*) 81 mg PO DAILY ANASTACIO Carvedilol (Coreg Tab*) 6.25 mg PO BID ANASTACIO Collagenase (Santyl 250 Mg/Gm Oint*) 1 applic TOPICAL DAILY ANASTACIO Furosemide (Lasix Tab*) 20 mg PO DAILY ANASTACIO Heparin Sodium (Porcine) (Heparin Vial(*)) 5,000 units SUBCUT Q8HR ANASTACIO Cefepime HCl (Maxipime 1 Gm In Dextrose Duplex (*)) 1 gm in 50 mls @ 100 mls/ hr IV Q24H ANASTACIO Vancomycin HCl 500 mg/ Sodium (Chloride) 250 mls @ 166.667 mls/hr IVPB Q12H ANASTACIO Lisinopril (Prinivil Tab*) 2.5 mg PO DAILY ANASTACIO Nicotine (Nicotine Inhaler*) 10 mg INH Q2H PRN Reason: CRAVING Pharmacy Consult (Vancomycin Per Pharmacy*) 1 note FOLLOW UP .VANC PER PHARMACY ANASTACIO Potassium Chloride (Klor Con Er Tab*) 20 meq PO DAILY ANASTACIO Rosuvastatin Calcium (Crestor (Nf)) 5 mg PO MoWeFr@2100 ANASTACIO; Protocol Vital Signs - 8 hr 10/30/17 10/30/17 10/30/17 00:18 05:07 07:31 Temperature 98.1 F 97.4 F 98.3 F Pulse Rate 81 88 77 Respiratory 16 16 19 Rate Blood Pressure 138/77 136/59 (mmHg) O2 Sat by Pulse 96 91 89 Oximetry Oxygen Devices in Use Now: None Appearance: NAD, sitting up on the side of the bed Ears/Nose/Mouth/Throat: Mucous Membranes Moist Respiratory: Symmetrical Chest Expansion and Respiratory Effort, Clear to Auscultation Cardiovascular: NL Sounds; No Murmurs; No JVD, RRR Abdominal: NL Sounds; No Tenderness; No Distention Extremities: No Edema Skin: - - Dressing to left LE clean and dry Neurological: Alert and Oriented x 3, NL Muscle Strength and Tone Lines/Tubes/Other Access: Clean, Dry and Intact Peripheral IV - site benign Nutrition: Taking PO's Result Diagrams: 10/28/17 05:45 10/30/17 06:13 Microbiology and Other Data: Microbiology 10/27/17 16:37 Aerobic Blood Culture - Preliminary Blood Venous No Growth Day 1 Anaerobic Blood Culture - Preliminary No Growth Day 1 10/27/17 16:37 Aerobic Blood Culture - Preliminary Blood Venous No Growth Day 1 Anaerobic Blood Culture - Preliminary No Growth Day 1 Microbiology 10/27/17 14:40 Leg Left Gram Stain - Final 10/27/17 14:40 Leg Left Wound Culture - Final Proteus Mirabilis Assess/Plan/Problems-Billing Assessment: Ms. Boss is a 76 yo female with PMH significant depression, systolic congestive heart failure, HTN, anxiety, polio, tobacco abuse, and nonobstructive coronary artery disease who presented to the emergency room with a non-healing wound of the left lower extremity. - Patient Problems (1) Wound of left lower extremity Code(s): S81.802A - UNSPECIFIED OPEN WOUND, LEFT LOWER LEG, INITIAL ENCOUNTER SNOMED Code(s): 149972432 Comment: - Non-healing wound for ~ 2 months - Afebrile and no leukocytosis - CRP improving - Large area of dry black eschar to left linares - Unable to obtain RD on left LE and right LE 0.10, suspect poor circulation contributing to non-healing - Wound culture with Proteus Mirabilis - Blood cultures, no growth day 2 - General Surgery Consult, input appreciated - Interventional Radiology consult, pending - Continue Santyl dressings daily and cefepime (2) Hyponatremia Code(s): E87.1 - HYPO-OSMOLALITY AND HYPONATREMIA SNOMED Code(s): 61931289 Comment: - Improving, Pt appears euvolemic - Suspect secondary to medications - Urine Osm 448 and NA 39 - Continue to hold spironolactone (3) Iiztv-lu-wvbbkwo kidney injury Code(s): N17.9 - ACUTE KIDNEY FAILURE, UNSPECIFIED; N18.9 - CHRONIC KIDNEY DISEASE, UNSPECIFIED SNOMED Code(s): 400939155 Comment: - Stage 3 at baseline - Creatinine improving after holding spironolactone and Lasix (4) Systolic heart failure Code(s): I50.20 - UNSPECIFIED SYSTOLIC (CONGESTIVE) HEART FAILURE SNOMED Code( s): 163414432 Comment: - No signs of acute exacerbation at this time - Daily weights and strict I+O's - Continue Lasix and hold Spironolactone (5) Coronary artery disease Code(s): I25.10 - ATHSCL HEART DISEASE OF [place] CORONARY ARTERY W/O ANG PCTRS SNOMED Code(s): 46535724 Comment: - Asymptomatic at this time - Continue carvediolol, crestor, and ASA (6) HTN (hypertension) Code(s): I10 - ESSENTIAL (PRIMARY) HYPERTENSION SNOMED Code(s): 22308099 Comment: - SBP 110-140's - Continue Lasix, lisinopril and carvedilol - Hold spironolactone (7) Tobacco abuse Code(s): Z72.0 - TOBACCO USE SNOMED Code(s): 296745943 Comment: - Pt advised to quit smoking and avoid second hand smoke - Continue Nicotine replacement (8) DVT prophylaxis Code(s): RBT8768 - SNOMED Code(s): 935488320 Comment: - Heparin SQ (9) DNR (do not resuscitate) Status and Disposition: Inpatient. Discharge to home when medically stable, suspect in 3-5 days.
--- NOTE | 2017-10-30 08:34 | CONSULT ---
Consult Consult: Date of Service: 10/30/17 Reason for Consultation: Left lower leg wound in the presence of arterial insufficiency Requesting Service: Hospitalists (Focused) HPI: Ms. Moise is a 76 y.o. female who reports she fell and scraped her leg about 2 months ago. About 2 weeks ago the patient reports the wound "was getting worse" and her leg was beginning to hurt more. She went to her primary who started antibiotics and sent her to the wound center. From there she was sent to the ER and was admitted. She has been on abx since admission. Prior to this injury, the patient reports bilateral lower extremity and bilateral hip pain when walking. When asked how far she can walk before the pain causes her to stop she replies "not far". The patient reports experiencing "restless leg syndrome" most nights of the week which is relieved by getting out of bed and pacing around her bedroom. PMHx: heart disease, depression, HTN, h/o polio Meds: see med rec ALL: asa ("too much aspirin causes bruising") SH: currently smokes 1ppd and has for 60 years; neg. EtOH, neg. IVDA FH: CAD PE: Selected Entries 10/30/17 07:31 Temperature 98.3 F Temperature Oral Source Pulse Rate 77 Respiratory 19 Rate Blood Pressure 136/59 (mmHg) Blood Pressure 79 Mean O2 Sat by Pulse 89 Oximetry NAD, AAO x 3 RRR, S1/S2 Vesicular breath sounds bilaterally but clear otherwise Abdomen is soft and nontender Pulses cannot be located are palpated at the bilateral common femoral arteries, popliteal arteries or pedal arteries. Capillary refill at the left great toe measures 4-5 seconds. The anterior left lower leg linares wound is dressed with sterile bandages. Relevant Labs: Laboratory Tests 10/27/17 10/27/17 10/27/17 16:37 16:37 16:37 WBC 10.7 Hgb Hct Plt Count 351 Neut % (Auto) 83.4 H INR (Anticoag Therapy) 1.03 H BUN Creatinine 1.50 H Est GFR ( Amer) 40.7 Est GFR (Non-Af Amer) 33.7 C-Reactive Protein 116.79 H 10/28/17 10/28/17 10/29/17 05:45 05:45 07:32 WBC 8.7 Hgb 12.9 Hct 38 Plt Count 299 Neut % (Auto) 77.3 INR (Anticoag Therapy) BUN Creatinine 1.30 H 1.16 H Est GFR ( Amer) 48.1 54.8 Est GFR (Non-Af Amer) 39.7 45.3 C-Reactive Protein 10/30/17 06:13 WBC Hgb Hct Plt Count Neut % (Auto) INR (Anticoag Therapy) BUN 16 Creatinine 0.95 Est GFR ( Amer) 69.0 Est GFR (Non-Af Amer) 57.0 C-Reactive Protein 77.61 H Imaging: Patient Name: PABLO MOISE Medical Record#: [id number] Ordering Physician: PADMAJA Ochoa Acct.#: [id number] : 1940 Age: 76 Sex: F Location: [address] [place] [address] MEDICAL Exam Date: 10/29/171941 ADM Status: ADM IN Order Information: VL ANK/BRACHIAL INDICES Accession Number: [id number] CPT: 52616 Indication: Nonhealing wound left leg. Ankle-brachial index on the right is 0.10. Ankle-brachial index on the left could not BE obtained. IMPRESSION: Ankle-brachial index on the right is abnormal at 0.10. Ankle- brachial index on the left cannot BE obtained. <Electronically signed by Linnette Serrano MD in [facility]> 10/29/17 1150 Dictated By: Linnette Serrano MD Dictated Date/Time: 10/29/17 1150 Transcribed Date/Time: 10/29/17 1143 Copy to: Summary: Ms Moise is a 76-year-old female with a long history of tobacco use presenting with a non-healing left anterior linares wound and signs of lower extremity arterial insufficiency. On physical examination I was unable to confidently palpate either common femoral artery and could not auscultate a bruit or other audible signs of arterial flow in either groin indicating the presence of aortoiliac occlusion. Plan and recommendation: 1. Left lower extremity arterial duplex to include the lower aorta and iliac arteries. 2. Continue wound care and antibiotic therapy as the patient's leukocytosis has improved since starting antibiotics. 3. The patient's renal function is improving and subsequent vascular imaging could include CTA aorta with runoff versus catheter arteriography.
[2017-10-30] MEDS: Aspirin 81 mg CHEW TAB* 81 MG TAB.CHEW PO SCH (10:56)
[2017-10-30] MEDS: Furosemide TAB* 20 MG PO SCH (10:56)
[2017-10-30] MEDS: Carvedilol TAB* 6.25 MG PO SCH ×2 (10:57→21:05)
[2017-10-30] MEDS: Potassium Chlor TAB* 20 MEQ TAB.ER PO SCH (10:57)
[2017-10-30] MEDS: Collagenase 250 MG/GM OINT* 30 GM TOPICAL SCH (10:58)
[2017-10-30] MEDS: Lisinopril TAB* 5 MG PO SCH (10:58)
--- NOTE | 2017-10-30 11:25 | RAD ---
INDICATION: Nonhealing anterior left lower leg wound in a vasculopath COMPARISON: Contrast-enhanced CT of the left lower leg acquired October 27, 2017. Of note is that this venous phase imaging of the lower leg shows contrast filling the popliteal and infrapopliteal arteries indicating delayed arterial phase filling. TECHNIQUE: Person scale, color Doppler, and spectral analysis utilized to image the left lower extremity arteries. Flow velocities were determined at each visualized artery. REPORT: The infrarenal lower abdominal aorta is coarsely calcified and no flow could be documented in the lumen. Flow is documented at the left common and external iliac arteries with slow velocity measuring as low as 7 cm/s. The left common femoral artery, proximal femoral profundus, superficial femoral artery, popliteal artery and infrapopliteal arteries exhibit patency. There is monophasic arterial waveforms documented throughout the left lower extremity arteries. Although patency is documented in the left lower extremity arteries there is marked reduction in flow velocity measuring as high as 33 cm at the left common femoral artery, 46 cm/s at the mid-level superficial femoral artery and single digit velocities in the infrapopliteal arteries. Images were obtained of the right common femoral artery demonstrating patency but a similar reduction in velocity to 39 cm/s. There are no pathologically dilated arteries visualized. IMPRESSION: 1. 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 2. The left lower extremity arteries exhibit monophasic slow velocity flow but patency is documented as far as the forefoot. If the patient's renal function is sufficient for contrast arteriography then CTA aorta with runoff will provide superior characterization of the occluded aorta. The findings and recommendations were discussed with Wendy Ochoa over the telephone at 1120 hours.
[2017-10-30] MEDS ORDERED: Iodixanol* (CONTRAST) 320 MG/ML 100 ML SDV IV ONE (13:22)
--- NOTE | 2017-10-30 16:55 | RAD ---
Indication: Left lower extremity wound. Evaluate for blood flow. Contrast: Administered 125.0 ml of VISIPAQUE 320 mg/ml CTA of the abdominal aorta and lower extremity arterial system was performed after IV contrast administration. Coronal and sagittal reconstructed images were obtained. There is marked atherosclerosis with extensive plaque throughout the distal thoracic aorta and abdominal aorta. Celiac axis and superior mesenteric artery are patent. There is stenosis of the origin of the left renal artery. The right renal artery is patent. Below the renal artery there is complete occlusion of the aorta. There is reconstitution of small common iliac arteries. The right and left external iliac arteries are markedly diminished in size. Multiple small collaterals are noted. The common femoral arteries, femoral arteries are patent but are small in caliber. Popliteal arteries bilaterally are small in caliber but appear patent. The right calf vessels appear patent. The left calf vessel demonstrates three-vessel patency. The lung bases demonstrate dependent changes in the lung nguyen. Cardiomegaly without evidence of pericardial effusion. The liver, gallbladder, spleen and adrenal glands are unremarkable. Atrophic left kidney is noted likely due to renal artery stenosis. Uterus and ovaries are unremarkable. The urinary bladder is otherwise unremarkable. IMPRESSION: There is extensive plaque in the abdominal aorta. Celiac axis and superior mesenteric artery are patent. There is stenosis at the origin of the left renal artery resulting in atrophy of the left kidney. 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 Small common iliac arteries are noted. Small external iliac arteries are noted with reconstitution of the common femoral arteries. The calf vessels bilaterally demonstrates three-vessel runoff.
[2017-10-30] MEDS ORDERED: CMCS - Rosuvastatin (NF) 5 MG TAB PO SCH (21:00)
[2017-10-30] MEDS: Cefepime 1 GM in Dextrose(*) 1 GM/50 ML BAG IV SCH (21:05)
[2017-10-31] MEDS: Heparin VIAL(*) 5000 UNITS/ML VIAL (FIVE THOUSAND) SUBCUT SCH ×2 (05:18→15:00)
[2017-10-31] MEDS: Furosemide TAB* 20 MG PO SCH (08:27)
[2017-10-31] MEDS: Potassium Chlor TAB* 20 MEQ TAB.ER PO SCH (08:27)
[2017-10-31] MEDS: Carvedilol TAB* 6.25 MG PO SCH (08:27)
[2017-10-31] MEDS: Lisinopril TAB* 5 MG PO SCH (08:27)
[2017-10-31] MEDS: Aspirin 81 mg CHEW TAB* 81 MG TAB.CHEW PO SCH (08:28)
--- NOTE | 2017-10-31 08:50 | PN ---
Subjective Date of Service: 10/31/17 Interval History: Patient seen and examined at bedside. Denies fever, chills, shortness of breath , chest discomfort, N/V/D. Pt states that she continues to have left LE pain, but over all feels like her leg is improving. She states that she was able to ambulate in the halls today, she is unable to ambulate very far at a time due to developing left LE pain when ambulating. She is anxious for discharge to home today. Family History: Unchanged from Admission Social History: Unchanged from Admission Past Medical History: Unchanged from Admission Objective Active Medications: Acetaminophen (Tylenol Tab*) 650 mg PO Q4H PRN Reason: FEVER/PAIN Aspirin (Aspirin 81 Mg Chew Tab*) 81 mg PO DAILY ANASTACIO Carvedilol (Coreg Tab*) 6.25 mg PO BID ANASTACIO Collagenase (Santyl 250 Mg/Gm Oint*) 1 applic TOPICAL DAILY ANASTACIO Furosemide (Lasix Tab*) 20 mg PO DAILY ANASTACIO Heparin Sodium (Porcine) (Heparin Vial(*)) 5,000 units SUBCUT Q8HR ANASTACIO Cefepime HCl (Maxipime 1 Gm In Dextrose Duplex (*)) 1 gm in 50 mls @ 100 mls/ hr IV Q24H ANASTACIO Lisinopril (Prinivil Tab*) 2.5 mg PO DAILY ANASTACIO Nicotine (Nicotine Inhaler*) 10 mg INH Q2H PRN Reason: CRAVING Potassium Chloride (Klor Con Er Tab*) 20 meq PO DAILY ANASTACIO Rosuvastatin Calcium (Crestor (Nf)) 5 mg PO MoWeFr@2100 ANASTACIO; Protocol Vital Signs - 8 hr 10/31/17 07:40 Temperature 98.3 F Pulse Rate 83 Respiratory 18 Rate Blood Pressure 137/52 (mmHg) O2 Sat by Pulse 94 Oximetry Oxygen Devices in Use Now: None Appearance: NAD, laying in bed Ears/Nose/Mouth/Throat: Mucous Membranes Moist Respiratory: Symmetrical Chest Expansion and Respiratory Effort, Clear to Auscultation Cardiovascular: NL Sounds; No Murmurs; No JVD, RRR Abdominal: NL Sounds; No Tenderness; No Distention Extremities: - - trace left foot edema Skin: - - Large area of dry echar to left skin Neurological: Alert and Oriented x 3, NL Muscle Strength and Tone Lines/Tubes/Other Access: Clean, Dry and Intact Peripheral IV - site benign Nutrition: Taking PO's Result Diagrams: 10/28/17 05:45 10/30/17 06:13 Microbiology and Other Data: Microbiology 10/27/17 16:37 Aerobic Blood Culture - Preliminary Blood Venous No Growth Day 1 Anaerobic Blood Culture - Preliminary No Growth Day 1 10/27/17 16:37 Aerobic Blood Culture - Preliminary Blood Venous No Growth Day 1 Anaerobic Blood Culture - Preliminary No Growth Day 1 Microbiology 10/27/17 14:40 Leg Left Gram Stain - Final 10/27/17 14:40 Leg Left Wound Culture - Final Proteus Mirabilis Assess/Plan/Problems-Billing Assessment: Ms. Boss is a 76 yo female with PMH significant depression, systolic congestive heart failure, HTN, anxiety, polio, tobacco abuse, and nonobstructive coronary artery disease who presented to the emergency room with a non-healing wound of the left lower extremity. - Patient Problems (1) Wound of left lower extremity Code(s): S81.802A - UNSPECIFIED OPEN WOUND, LEFT LOWER LEG, INITIAL ENCOUNTER SNOMED Code(s): 958094280 Comment: - Non-healing wound for ~ 2 months - Afebrile and no leukocytosis - CRP improving - Large area of dry black eschar to left linares - Unable to obtain RD on left LE and right LE 0.10, suspect poor circulation contributing to non-healing - Wound culture with Proteus Mirabilis - Blood cultures, no growth day 2 - General Surgery Consult, input appreciated - Interventional Radiology consult, input appreciated - ID consult, pending - CTA aorta with run off shows aorta occlusion, will need vascular surgery consult - Continue Santyl dressings daily and cefepime (2) Hyponatremia Code(s): E87.1 - HYPO-OSMOLALITY AND HYPONATREMIA SNOMED Code(s): 67990980 Comment: - Improving, Pt appears euvolemic - Suspect secondary to medications - Urine Osm 448 and NA 39 - Continue to hold spironolactone (3) Rtzme-mp-hmynvhj kidney injury Code(s): N17.9 - ACUTE KIDNEY FAILURE, UNSPECIFIED; N18.9 - CHRONIC KIDNEY DISEASE, UNSPECIFIED SNOMED Code(s): 752554965 Comment: - Resolved - Stage 3 at baseline - Creatinine improving after holding spironolactone and Lasix (4) Systolic heart failure Code(s): I50.20 - UNSPECIFIED SYSTOLIC (CONGESTIVE) HEART FAILURE SNOMED Code( s): 539665629 Comment: - No signs of acute exacerbation at this time - Daily weights and strict I+O's - Continue Lasix and hold Spironolactone (5) Coronary artery disease Code(s): I25.10 - ATHSCL HEART DISEASE OF [place] CORONARY ARTERY W/O ANG PCTRS SNOMED Code(s): 94346637 Comment: - Asymptomatic at this time - Continue carvediolol, crestor, and ASA (6) HTN (hypertension) Code(s): I10 - ESSENTIAL (PRIMARY) HYPERTENSION SNOMED Code(s): 56449859 Comment: - SBP 100-140's - Continue Lasix, lisinopril and carvedilol - Hold spironolactone (7) Tobacco abuse Code(s): Z72.0 - TOBACCO USE SNOMED Code(s): 796577963 Comment: - Pt advised to quit smoking and avoid second hand smoke - Continue Nicotine replacement (8) DVT prophylaxis Code(s): SFN6154 - SNOMED Code(s): 488343509 Comment: - Heparin SQ (9) DNR (do not resuscitate) Status and Disposition: Inpatient. Discharge to home when medically stable, possibly later today.
[2017-10-31] MEDS ORDERED: Levofloxacin TAB* 500 MG PO SCH (14:00)
[2017-10-31] MEDS: Collagenase 250 MG/GM OINT* 30 GM TOPICAL SCH (15:00)
[2017-10-31 16:38] VITALS: BP 102/59
--- NOTE | 2017-11-01 00:59 | DS ---
CC: Brandi Moulton NP; Dr. Bill Solomon.* DISCHARGE SUMMARY: DATE OF ADMISSION: 10/27/17 DATE OF DISCHARGE: 10/31/17 ATTENDING PHYSICIAN: Flako Smart MD * (dictated by Cande Ochoa NP) PRIMARY CARE PROVIDER: Brandi Moulton NP PRIMARY DIAGNOSES: 1. Chronic left lower extremity wound. 2. Acute on chronic kidney injury, resolved. 3. Hyponatremia, improving. 4. 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 5. Tobacco abuse. SECONDARY DIAGNOSES: 1. Depression. 2. Systolic congestive heart failure, last EF 25% to 30%. 3. Hypertension. 4. Anxiety. 5. Polio at age 12. 6. Nonobstructive coronary artery disease. CONSULTATIONS WHILE IN THE HOSPITAL: 1. Dr. Lety Davis with General Surgery. 2. Dereje Gardner MD with Interventional Radiology. STUDIES WHILE IN THE HOSPITAL: 1. Left lower extremity CT from 10/27/17. Radiologist's impression, CT findings are consistent with gas-forming superficial infection of the left lower anterior leg. There is no CT evidence of gas-forming infection in the anterior musculature or signs of osteomyelitis. 2. Ankle brachial indices on 10/29/17. Radiologist's impression, ankle brachial index on the right is abnormal at 0.10. Ankle brachial index on the left cannot be obtained. 3. Left lower extremity arterial duplex on 10/30/17. Radiologist's impression , duplex sonography is consistent with occlusion of the lower infrarenal abdominal aorta with reconstituted flow in the iliac arteries and below. The left lower extremity arteries exhibit monophasic flow, velocity flow, but patency is documented as far as the forefoot. 4. Aorta, a CTA aorta with run off on 10/30/17. Radiologist's impression: There is extensive plaque in the abdominal aorta. Celiac access and superior mesenteric arteries are patent. There is stenosis at the origin of the left renal artery resulting in atrophy of the left kidney. 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 Small common iliac arteries are noted. Small external iliac arteries are noted with reconstitution of the common femoral artery. The calf vessels bilaterally demonstrate 3-vessel run-off. DISCHARGE MEDICATIONS: New home medications: 1. Acetaminophen 650 mg oral every 4 hours as needed for p.r.n. pain. 2. Santyl apply topical daily to necrotic area of the left linares. 3. Levaquin 500 mg oral daily for 14 days. 4. Nicotine inhaler 10 mg inhalation every 2 hours as needed for nicotine craving. Continued home medications: 1. Carvedilol 6.25 mg oral twice daily. 2. Lisinopril 2.5 mg oral daily. 3. Furosemide 20 mg oral daily. 4. Crestor 5 mg oral daily at bedtime. 5. Aspirin 81 mg oral daily. 6. Potassium chloride 20 mEq oral daily. Discontinued home medications: 1. Spironolactone. 2. Bactrim. HISTORY OF PRESENT ILLNESS/HOSPITAL COURSE: Ms. Boss is a 76-year-old female with past medical history significant for depression, systolic congestive heart failure, nonobstructive coronary artery disease, hypertension, anxiety, tobacco abuse and polio at age 2, who for the most part has been in her usual state of health since being hospitalized approximately 2 months ago. The patient reports falling and scraping her left linares approximately 2 months ago. She has been keeping the area clean with antibiotic ointment, but with her efforts to heal the wound at home. The wound continued to be painful and appeared to be getting worse. Tissue turned to black in color. The patient was having difficulty ambulating due to pain in her left lower extremity. She was seen by her primary care provider who started her on Bactrim approximately a week prior to her presentation to the hospital. They referred her to the wound clinic where she was seen and then referred to the emergency room. While in the emergency room, the patient had a CT scan showing gas-forming superficial infection, but no signs of osteomyelitis or fasciitis. She had labs showing no leukocytosis. She was noted to be hyponatremic. Her creatinine was above her baseline. She had a CRP of 116.79. The hospitalists were asked to evaluate the patient for admission. While in the hospital, the patient's necrotic chronic lower extremity wound was treated with Santyl. She was seen in consultation by Dr. Davis with General Surgery who recommended to continue the Santyl dressings until we were sure of her status of her blood flow to her left lower extremity. She underwent RD showing undetectable ABIs in the left foot and decreased ABIs in the right foot. She was then seen in consultation by Dr. Dereje Gardner who recommended arterial duplex of the left lower extremity showing occlusion at the infrarenal abdominal aorta. During her stay, she was initially given hydration and this resolved her acute on chronic kidney injury and improved her hyponatremia. Her spironolactone was held initially, her furosemide was also held, but this was resumed. She continued to have a poor appetite, but was able to eat. After the arterial duplex showed an occlusion in her infrarenal abdominal aorta. She underwent CTA aorta run-off, again showing occlusion in her abdominal aorta at the infrarenal area. This was felt to be nonemergent, but the patient needed to see vascular surgeon and consult. She, during her stay was also on initially vancomycin and cefepime. The vancomycin was discontinued when a wound culture showed proteus mirabilis. She had blood cultures with no growth on day 4. She was continued on cefepime. She was doing well. An outpatient appointment was set up with Vascular Surgery. She continued to have no leukocytosis and is afebrile, was able to ambulate. Ms. Boss is stable for discharge today. Vital signs are as follows: Temperature 97.5, heart rate 84, respiratory rate 16, O2 sat 95% on room air, blood pressure 102/59. DISCHARGE PLAN: Ms. Boss will be discharged to home. Activity as tolerated. She will be on a low sodium, heart healthy diet. In regard to her necrotic left lower extremity wound, she will be continued on Santyl. She has been instructed to apply topically to the necrotic area once daily and then cover with a loose dressing such as a stockinette. She has been asked to not put any pressure or paper tape on this leg. She has been continued on Levaquin 500 mg oral daily for 14 days. Again, her hyponatremia is improving, but her blood pressures have been a little labile and with hyponatremia, I continued to hold her spironolactone. Please resume this accordingly in the outpatient setting. She has a followup appointment with Dr. Bill Solomon, Vascular Surgery in [place] on 11/13/17 at 1:15 p.m. Additionally, she has a followup appointment with her primary care provider, PADMAJA Moulton on Monday, at 10:20 a.m. She has a followup appointment with the Wound Clinic at [facility], on Monday11/10/17 at 2 p.m. Additionally, the patient has been encouraged to stop smoking. She has been continued on a nicotine inhaler as needed. The patient has been asked to return to the emergency room for any chest pain or shortness of breath. POINTS AT FOLLOW UP: Ensure that the patient gets into Vascular Surgery for a consultation, an appointment has been made. Additionally, continue to monitor her electrolytes with her taking diuretics and monitor that she does not go into heart failure exacerbation with her spironolactone being held. She currently has no signs of heart failure exacerbation. This is a summarized report of a complex medical history and hospital stay. For further details, please see the entire medical record. TIME SPENT: Time for this discharge was approximately 60 minutes, greater than half of that was spent with the patient and her son, Chemo, and her discussing discharge plans and instructions. CONDITION ON DISCHARGE: Good. Reviewed by ANDRIY EDWARD 11/01/17 1805 [id number]/CPS #: [id number] MELVIN
== END 2017-10-31 18:45 | disposition home or self-care (01) | DRG 605 ==
LOC: ED 15:12 → MED 18:54
PROVIDERS: ADMIT Internal Medicine; ATTEND Internal Medicine
PROC: 0H9LXZZ Drainage of Left Lower Leg Skin, External Approach (ICD-10-PCS; principal; 2017-10-28)
DX: S81.812A Laceration without foreign body, left lower leg, initial encounter (principal); N17.9 Acute kidney failure, unspecified; E87.1 Hypo-osmolality and hyponatremia; I50.20 Unspecified systolic (congestive) heart failure; I11.0 Hypertensive heart disease with heart failure; W22.09XA Striking against other stationary object, initial encounter; Y92.9 Unspecified place or not applicable; N18.9 Chronic kidney disease, unspecified; I70.0 Atherosclerosis of aorta; Z66 Do not resuscitate; F17.210 Nicotine dependence, cigarettes, uncomplicated; F32.9 Major depressive disorder, single episode, unspecified; F41.9 Anxiety disorder, unspecified; I25.10 Atherosclerotic heart disease of native coronary artery without angina pectoris; Z86.12 Personal history of poliomyelitis; Z79.82 Long term (current) use of aspirin; Z79.899 Other long term (current) drug therapy; Z82.49 Family history of ischemic heart disease and other diseases of the circulatory system
CPT/HCPCS: 36415; 75635; 80048; 80053; 80202; 83605; 83930; 83935; 84300; 85025; 85610; 86140; 87040; 87070; 87077; 87186; 87205; 93922; 99214; 99284; A9270-GY; G0463; G8978-GP-CI; G8979-GP-CI; G8980-GP-CI; J0692; J1644; J3370; Q9967

== ENCOUNTER 2018-04-14 13:55 | Inpatient (IN) | payer MEDICARE, OTHER ==
[2018-04-14 14:38] LABS: ABS Basophils 0 10^3/ul (0-0.2); ABS Eosinophils 0.1 10^3/ul (0-0.6); ABS Lymphocytes 0.9 10^3/ul (1.0-4.8); ABS Monocytes 0.2 10^3/ul (0-0.8); ABS Neutrophils 8.6 10^3/ul (1.5-7.7); ABS Nucleated RBC 0 10^3/ul; Eosinophil % 1.3 %; Hematocrit 36 % (35-47); Hemoglobin 11.7 g/dl (12.0-16.0); Mean Corpuscular HGB Conc 33 g/dl (31-36); Mean Corpuscular Hemoglobin 30 pg (27-31); Mean Corpuscular Volume 91 fL (80-97); Nucleated Red Blood Cells % 0; Platelet Count 276 10^3/ul (150-450); Red Blood Count 3.94 10^6/ul (4.00-5.40); Red Cell Distribution Width 16 % (10.5-15); White Blood Count 9.8 10^3/ul (3.5-10.8)
--- NOTE | 2018-04-14 14:40 | ED ---
Respiratory - HPI Summary HPI Summary: This patient is a 77 year old F brought in by EMS presenting to [facility] with a chief complaint of respiratory distress since [employer] HEL[employer]. Pt states that she had woke up this morning and sat down when she started having difficulty breathing. She states that "i'm not sick, i just can't breathe." The patient is on home oxygen. EMS administered CPAP DOU[employer] HELPER. Pt was given 10 mg Dexamethasone, Duoneb x2 via CPAP by EMS. - History of Current Complaint Stated Complaint: RESP DISTRESS Time Seen by Provider: 04/14/18 13:56 Hx Obtained From: Patient Onset/Duration: Sudden Onset Alleviating Factor(s): Dose Of Medications Associated Signs and Symptoms: SOB - Risk Factors Cardiac Risk Factors: Hypertension, Smoking Pseudomonas Risk Factors: Chronic Lung Disease - Allergy/Home Medications Allergies/Adverse Reactions: Allergies Allergy/AdvReac Type Severity Reaction Status Date / Time aspirin Allergy Mild See Comment Verified 10/27/17 16:41 atorvastatin [From Lipitor] Allergy Joint Pain Verified 10/28/17 13:13 PMH/Surg Hx/FS Hx/Imm Hx Cardiovascular History: Reports: Hx Hypertension Denies: Hx Pacemaker/ICD Respiratory History: Reports: Hx Chronic Obstructive Pulmonary Disease (COPD) Sensory History: Reports: Hx Contacts or Glasses - reading Denies: Hx Hearing Aid Opthamlomology History: Reports: Hx Contacts or Glasses - reading Psychiatric History: Denies: Hx Panic Disorder - Family History Known Family History: Negative: Cardiac Disease, Hypertension, Diabetes - Social History Alcohol Use: None Substance Use Type: Reports: None Smoking Status (MU): Former Smoker Review of Systems Positive: Shortness Of Breath Negative: Vomiting All Other Systems Reviewed And Are Negative: Yes Physical Exam - Summary Physical Exam Summary: GENERAL: Patient is a well-developed and nourished F who is lying comfortable in the stretcher. Patient is not in any acute respiratory distress. HEAD AND FACE: Normocephalic EYES: PERRLA, EOMI x 2. EARS: Hearing grossly intact. MOUTH: Oropharynx within normal limits. NECK: Supple, trachea is midline, no adenopathy, no JVD, no carotid bruit. CHEST: Symmetric, no tenderness at palpation LUNGS: Diminished breath sounds bilaterally. No wheezing or crackles. Patient on BIPAP. CVS: Regular rate and rhythm, S1 and S2 present, no murmurs or gallops appreciated. ABDOMEN: Soft, non-tender. Bowel sounds are normal. No abdominal abnormal pulsations. EXTREMITIES: Full ROM in all major joints, no edema, no cyanosis or clubbing. NEURO: Alert and oriented x 3. No acute neurological deficits. Speech is normal and follows commands. SKIN: Dry and warm Triage Information Reviewed: Yes Vital Signs Reviewed: Yes Diagnostics - Laboratory Result Diagrams: 04/15/18 05:01 04/15/18 05:01 Lab Statement: Any lab studies that have been ordered have been reviewed, and results considered in the medical decision making process. - Radiology CXR Radiology Interpretation Completed By: Radiologist Summary of Radiographic Findings: 1. Cardiomegaly 2. Pulmonary interstitial edema. 3. Right lower lobe consolidation. ED Provider has reviewed this report. - EKG 1358 Cardiac Rate: NL EKG Rhythm: Sinus Rhythm - 95 BPM Summary of EKG Findings: LVH with ST T wave changes, borderline prolonged QT interval. Disposition - Course Course Of Treatment: This patient is a 77 year old F brought in by EMS presenting to [facility] with a chief complaint of respiratory distress since D[employer] HELPER. Her CXR was remarkable for pneumonia. This patient will be admitted. Dr Hi, Hospitalist, accepted the patient. I discussed results with the patient. The patient agrees with this plan. - Diagnoses Provider Diagnoses: Pneumonia - Physician Notifications Discussed Care Of Patient With: Kulwinder Hi - Hospitalist Time Discussed With Above Provider: 15:25 Instructed by Provider To: Admit As Inpatient Discharge - Sign-Out/Discharge Documenting (check all that apply): Patient Departure - Admission - Discharge Plan Condition: Stable Disposition: ADMITTED TO [facility] - Billing Disposition and Condition Condition: STABLE Disposition: Admitted to [facility] - Attestation Statements Document Initiated by Scribe: Yes Documenting Scribe: Zhang Cuellar Provider For Whom Fer is Documenting (Include Credential): Lucien López MD Scribe Attestation: Zhang Huntley scribed for Lucien López MD on 04/15/18 at 1051. Scribe Documentation Reviewed: Yes Provider Attestation: The documentation as recorded by the Zhang quesada accurately reflects the service I personally performed and the decisions made by me, Servando López MD Status of Scribe Document: Viewed
--- OUTSIDE RECORDS SUMMARY | 2018-04-14 14:41 | XMS REPORT | Continuity of Care Document ---
:1940 External Reference #:[id number] Author Name Leslie Stern Care Team Providers Name Role Phone Keeley Bailey SUPERVISOR DELIVERY DEPARTMENT Primary Care Physician Unavailable Payers Type Date Identification Numbers Payment Provider Subscriber Policy Number: [id number] Medicare - NGS Leticia Boss PayID: [id number] [place], [place] [id number] Advance Directives Description No Information Available Problems Date Description Provider Status Onset: Hypertension Active Onset: Hypercholesterolemia Active Onset: 02/23/2018 Other benign neoplasm of skin of right Sundeep Mckenna M.D. Active lower eyelid, including canthus Onset: 02/23/2018 Pseudoexfoliation glaucoma Sundeep Mckenna M.D. Active Onset: 02/23/2018 Combined form of senile cataract Sundeep Mckenna M.D. Active Family History Date Family Member(s) Problem(s) Comments General Unknown Father No Current Problems Mother No Current Problems Social History Type Date Description Comments Sex Unknown Marital Status Legal Status: Occupation Subject Company Work Status Retired ETOH Use Denies alcohol use Tobacco Use Start: Unknown End: Unknown Patient is a former smoker Recreational Drug Use Denies Drug Use Smoking Status Reviewed: 04/02/18 Patient is a former smoker Allergies, Adverse Reactions, Alerts Date Description Reaction Status Severity Comments 02/06/2018 Shellfish Active 04/02/2018 Erythromycin Active 04/02/2018 NKDA Inactive Medications Medication Date Status Form Strength Qnty SIG Indications Ordering Provider Vigamox 04/02/ Active Solution 0.5% 3ml one drop Sundeep J. 2019 right eye Ar[place]o, three M.D. times a day, start the day before surgery Ketorolac 04/02/ Active Solution 0.5% 10ml use one Sundeep Ramírez Tromethamine 2019 drop in [place], the right M.D. eye three times a day, start the day before surgery Prednisolone 04/02/ Active Suspension 1% 10ml 1 drops Sundeep Ramírez Acetate 2019 right eye Arleo, three M.D. times a day. taper as directed Eliquis / Active Tablets 5mg Unknown 0000 Magnesium / Active Tablets 400(241.3M Take One Unknown Oxide 0000 g) mg Tablet By Mouth Every Day Losartan / Active Tablets 25mg Foster, Potassium 0000 Roseann [employer] Carvedilol / Active Tablets 6.25mg Take One Unknown 0000 Half Tablet By Mouth Twice A Day With Meals Rosuvastatin / Active Tablets 5mg Take One Unknown Calcium 0000 Half Tablet By Mouth Three Times Per Week Furosemide / Active Tablets 20mg Take One Unknown 0000 Tablet By Mouth Every Day Potassium / Active Tablets ER 20Meq Take One Unknown Chloride Libby 0000 Tablet By ER Mouth Every Day Immunizations Description No Information Available Vital Signs Description No Information Available Results Description No Information Available Procedures Date Code Description Status 02/23/2018 50973 New Patient Comprehensive Exam Completed Encounters Description No Information Available Plan of Treatment Future Appointment(s):05/15/2018 12:00 pm - Sundeep Mckenna M.D. at Sundeep Mckenna [facility], 04/19/2018 12:15 pm - Sundeep Mckenna M.D. at [facility] Mckenna [facility], 04/12/2018 12:00 pm - Sundeep Mckenna M.D. at [facility] Mckenna [facility], 2018 7:00 am - Sundeep Mckenna M.D. at Sundeep Mckenna MD, 04/11/2018 7:00 am - Sundeep Mckenna M.D. at [facility] M[facility]enna [facility], 04/02/2018 - Sundeep Mckenna M.D.H25.811 Combined forms of age-related cataract, right eyeComments:Smoking can increase the risk of developing or worsening any eye related disease, as well as affect your overall health. If you are a smoker, we strongly recommend that you quit.If you are not a smoker, we strongly recommend that you do not start. Dense cataract in the right eye.Follow up:For surgery. 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
[2018-04-14] MEDS ORDERED: Azithromycin IV(*) 500 MG in NS 0.9% 250 ML* 250 ML IVPB ONE (14:52)
[2018-04-14] MEDS ORDERED: cefTRIAXone(*) 1 GM in NS 0.9% 50 ML* 50 ML IVPB ONE (14:52)
[2018-04-14 14:55] LABS: Albumin 3.7 g/dL (3.2-5.2); Albumin/Globulin Ratio 1.2 (1-3); BUN/Creatinine Ratio 18.4 (8-20); Calcium 9.1 mg/dL (8.6-10.3); EGFR Non-African American 33.1 (>60); Globulin 3.1 g/dL (2-4); Magnesium 2.1 mg/dL (1.9-2.7); Potassium 3.8 mmol/L (3.5-5.0); Total Bilirubin 0.5 mg/dL (0.2-1.0); Total Protein 6.8 g/dL (6.4-8.9)
[2018-04-14 14:57] LABS: INR 1.11 (0.77-1.02)
[2018-04-14] MEDS ORDERED: Albuterol 2.5 MG/3 ML NEB.SOL* (0.083%) INH PRN (16:32)
[2018-04-14] MEDS ORDERED: Acetaminophen TAB* 325 MG PO PRN (16:32)
[2018-04-14] MEDS ORDERED: Furosemide IV* 10 MG/ML 2 ML VIAL (20 MG) IV SLOW PU ONE (16:37)
[2018-04-14 16:59] LABS: Urine Appearance Cloudy; Urine Bilirubin NEG (Negative); Urine Blood NEG (Negative); Urine Color Yellow; Urine Glucose NEG (Negative); Urine Ketones NEG (Negative); Urine Nitrite Positive (Negative); Urine Protein 2+(100 mg/dL) (Negative); Urine Urobilinogen NEG (Negative)
[2018-04-14] MEDS ORDERED: Albuterol/Ipratropium NEB.SOL* Albuterol 2.5 MG/Ipratropium 0.5 MG 3 ML INH SCH ×3 (17:00→19:00)
[2018-04-14 17:10] LABS: Urine Bacteria 2+ (Absent); Urine Red Blood Cell Absent (Absent); Urine White Blood Cell 1+(6-10/hpf) (Absent)
[2018-04-14 17:45] LABS: C Reactive Protein 8.76 mg/L (<8.01)
[2018-04-14 18:49] LABS: Erythrocyte Sed Rate 18 mm/Hr (0-40)
[2018-04-14 19:30] LABS: ABS Basophils 0 10^3/ul (0-0.2); ABS Eosinophils 0 10^3/ul (0-0.6); ABS Lymphocytes 0.7 10^3/ul (1.0-4.8); ABS Monocytes 0.1 10^3/ul (0-0.8); ABS Neutrophils 5.3 10^3/ul (1.5-7.7); ABS Nucleated RBC 0 10^3/ul; Eosinophil % 0.1 %; Hematocrit 35 % (35-47); Hemoglobin 11.6 g/dl (12.0-16.0); Lymphocyte % 10.8 %; Mean Corpuscular HGB Conc 33 g/dl (31-36); Mean Corpuscular Hemoglobin 30 pg (27-31); Mean Corpuscular Volume 90 fL (80-97); Mean Platelet Volume 7.2 fL (7.4-10.4); Nucleated Red Blood Cells % 0; Platelet Count 274 10^3/ul (150-450); Red Blood Count 3.87 10^6/ul (4.00-5.40); Red Cell Distribution Width 16 % (10.5-15)
--- NOTE | 2018-04-14 19:32 | HP ---
CC: Brandi Moulton NP; Roseann Davis NP * HISTORY AND PHYSICAL: DATE OF ADMISSION: 04/14/18 PRIMARY CARE PROVIDER: Brandi Moulton NP ATTENDING PHYSICIAN WHILE IN THE HOSPITAL: Dr. Kulwinder Hi * (report dictated by Romel Jerry NP). Roseann Davis NP, from Cardiology. CHIEF COMPLAINT: 1. Shortness of breath. 2. Lower extremity edema. HISTORY OF PRESENT ILLNESS: Ms. Boss is a 77-year-old female patient with an extensive past medical history. She carries a history of depression; history of cardiomyopathy with an EF of 25% to 30%; history of hypertension; CAD , nonobstructive; carries a history of anxiety; chronic left lower extremity wound; history of occlusion of the infrarenal abdominal aorta, status post bypass; history of polio, who also has again last EF of 25% to 30% and does wear a LifeVest, who comes into our ER today stating that the last couple days she noticed that her lower extremities have gotten more swollen. She does not know if she has gained weight. She does not weigh herself daily. She says she has not had any increase in salt intake to her knowledge. She has not been feeling ill. She says she has not had any congestion, cough. No fevers, no chills. She did admit to a sore throat only, but she denies any arthralgias or myalgias. She has been taking her medications right along as prescribed, has not been missing them. She says that typically she just does not sleep, but she said the last 2 to 3 days has been much worse. She denied shortness of breath at night. She says that she is sleeping on 1 pillow, which is not new for her. She says that this morning when she woke up she felt really short of breath much more than the last few days. She was concerned because her breathing was not really getting any better and she summoned EMS and came into the hospital to be evaluated. She denies having any chest pain with this. Again, no fevers or chills. The only other associated symptom is swelling in her lower legs. She says she has been urinating okay. She denied any recent sick contacts and no weight changes that she is aware of. She was concerned because of the breathing, came in and was evaluated. Chest x-ray was reported as consolidation in the right lower lobe with pulmonary edema. There was concern for possible pneumonia or CHF exacerbation, so we were asked to evaluate for admission. PAST MEDICAL HISTORY: Significant for: 1. Depression. 2. CHF, last documented EF was 25% to 30%. 3. Hypertension. 4. She does have a history of CAD, but it is nonobstructive. She had a cath done in 2018, which showed 1-vessel disease in LAD with intermediate stenosis and severe LV dysfunction. 5. She has a history of anxiety. 6. Polio. 7. Again, left lower extremity chronic wound, which is healing. 8. She had occlusion of the infrarenal abdominal aorta back in October of last year and she is status post grafting. 9. Question of history of COPD. 10. She has a history of DVT as well, on Eliquis. PAST SURGICAL HISTORY: 1. She has had heart catheterization in 2018. 2. She had a vascular surgery in the fall of last year. We are getting records , but it sounds like she had an aorta, iliac or femoral bypass. Again, we will need to get the records. HOME MEDICATIONS: Again, we will need to clarify these with her primary or the pharmacy. I did obtain this list from [facility], but again we will need to clarify. She is on: 1. Crestor 2.5 mg p.o. Monday, Monday, Monday. 2. Losartan 12.5 mg daily. 3. Apixaban 5 mg p.o. b.i.d. 4. Lasix 20 mg daily. 5. Carvedilol 3.125 mg p.o. b.i.d. ALLERGIES TO MEDICATIONS: Include ASPIRIN and LIPITOR. FAMILY HISTORY: Her mother in her 70s from heart disease. She says her father was alcoholic. SOCIAL HISTORY: She is still smoking about half-a-pack a day. She has been smoking since she was a teenager. She does not drink alcohol. Surrogate decision makers are her son, Chemo and her , Osmel. REVIEW OF SYSTEMS: Again, there is no documented fever. She did not admit to any significant weight change that she is aware of. She denied having any double vision. There was no ear discharge. She denied having any rhinorrhea. She did admit to a sore throat. There was no thyroid enlargement. She denied having any chest pain. Did not elicit any orthopnea. There was no nocturnal dyspnea. She denies having any abdominal pain. There was no nausea, no vomiting. There was no dysuria. There was no frequency. She denied having any seizure. No loss of consciousness. No pruritus and no skin ulcerations. Review of 14 systems was completed, all others negative. PHYSICAL EXAMINATION GENERAL: At this time, Ms. Leticia Boss is a 77-year-old female patient. She is chronically ill-appearing. She is sitting in the ED stretcher. She does not appear to be in any acute distress currently. VITAL SIGNS: Blood pressure last one was 114/70; pulse 80; respirations were 24 ; O2 saturation was 99% on 2 L when she presented, she was on BiPAP with 100% FiO2; respiratory rate again was noted to be upper 20s to 30, it is now improved ; temperature was 97.1. HEENT: Head: Atraumatic and normocephalic. Eyes: EOMs intact. Sclerae anicteric and not pale. Throat: Oral mucosa appears to be moist. No oropharyngeal erythema. NECK: Supple. LUNGS: She had wheezing noted in the upper lobes. She had crackles in the lower lobes. She had equal diaphragmatic expansion. No rhonchi were heard. HEART: Sounds S1, S2. She had a regular rate and rhythm. No murmurs, rubs, or gallops. ABDOMEN: Soft, flat, nontender. EXTREMITIES: Pulses were diminished in the pedal area, but were palpable. She had pulses in the upper extremities that were strong and brisk. She had 2+ pitting edema bilaterally. She had 5/5 strength. NEUROLOGIC: She is awake. She is alert. She is oriented x3. She had no gross focal deficits. SKIN: She has a wound to her left lower extremity that is in the pretibial area that appears to be well healing. She has an area of eschar tissue and scarring, but again no obvious signs of drainage, erythema, warmth, or tenderness. Otherwise, skin is intact. DIAGNOSTIC STUDIES/LAB DATA: The labs today reveal a WBC of 9.8, RBC of 3.94, hemoglobin of 11.7, hematocrit of 36, and platelet count of 276. INR 1.11, PTT of 27. Blood gas; pH was 7.39, pCO2 of 51, bicarb was 28. Her sodium was 133, potassium of 3.8, chloride of 97, bicarb 28, BUN 28, creatinine of 1.52. Her last creatinine was noted to be 0.9, but that was in October of last year. Creatinine does trend to 1.2 and 1.1. Glucose is 242, lactic 1.8, calcium 9.1, mag 2.1. Total bili 0.5, AST 55, ALT 42, alk phos 90. Troponin 0.03. BNP was greater than 1300. Albumin 3.7. She had a chest x-ray obtained today. When I reviewed it, there does appear to be consolidation in the right lower lobe, but in addition to this she does appear to have pulmonary edema and cardiomegaly. Radiology read this as cardiomegaly, pulmonary interstitial edema, right lower lobe consolidation. She had an EKG obtained today showing a normal sinus rhythm, rate of 95 with significant LVH, T-wave inversion in V5 and V6 and also has inversion in lead I. No ST elevation was noted. Review it to the previous EKG, it is similar. Again last echo, EF was 20% to 25% and last cardiac catheterization showed intermediate stenosis of the LAD. ASSESSMENT AND PLAN: Ms. Boss is a 77-year-old female patient with a complex medical history coming into the ED today with complaints of shortness of breath. We were asked to evaluate for admission. She will be admitted under inpatient status for: 1. Congestive heart failure exacerbation. I suspect that her story fits congestive heart failure. She has had progressive lower extremity swelling, in addition to this she was very short of breath this morning. She responded and turned around quickly with BiPAP. She does not give symptoms of pneumonia, although there is consolidation on x-ray, but I feel at this point I would like to give her a one-time dose of 20 of IV Lasix, follow her tomorrow to see what her kidney function is doing. Again, she may have certainly hypoperfused with decreased cardiac output, but I would like to send off a FENa. We will check daily weights. We will repeat her echo, cycle her troponins, place her on telemetry. One-time dose of Lasix. We will continue her beta-garcia. She has rapidly improved. She got one-time dose of antibiotics here in the ED, which I am going to hold off on giving and we will continue to follow. 2. Question of chronic obstructive pulmonary disease. Again, she has been a lifelong smoker, so she most likely may have underlying chronic obstructive pulmonary disease. I put her on inhaled nebulizers, but I am holding off on steroids and we will continue to follow. She may need followup with Pulmonology in the outpatient setting at some point. 3. Peripheral arterial disease. Continue with her meds as prescribed. She is on statin therapy. We will get records from Dr. Solomon. 4. Hypertension. Again, continue meds as prescribed. 5. History of cardiomyopathy. Continue when we are able to her losartan. I held it with the elevated creatinine for the time being. We will continue her carvedilol and Lasix just a one-time dose. We will reevaluate her kidney function tomorrow and then determine if we need to give this or not. 6. Acute renal failure. Again, this could be secondary to the decreased cardiac output and possible heart failure. I am sending off a FENa. We are checking a bladder scan. I will monitor this. 7. DVT prophylaxis: She is on Eliquis. She does have a history of deep venous thrombosis. We will need to clarify with records from her PCP. She said she may have been on this for 3 months, so she may be able to stop this, but it is unclear at this point. 8. Code status: Full code. 9. Fluids, electrolytes, and nutrition: She can have a heart-healthy diet. TIME SPENT: Time spent on the admission was 60 minutes, greater than half of the time was spent [id number] with the patient obtaining my history and physical, other half of the time was spent going over the plan of care with the patient and implementing plan of care. I did discuss the plan of care with my attending, Dr. Hi, and he is in agreement. ROMEL JERRY NP [id number]/[facility] #: [id number] MELVIN
[2018-04-14] MEDS: Carvedilol TAB* 6.25 MG PO SCH (20:21)
[2018-04-14] MEDS: Apixaban* 5 MG TAB PO SCH (20:21)
[2018-04-14] MEDS ORDERED: hydrALAZINE IV* 20 MG/ML VIAL IV SLOW PU PRN (21:54)
[2018-04-14] MEDS ORDERED: Heparin VIAL(*) 5000 UNITS/ML VIAL (FIVE THOUSAND) SUBCUT SCH (22:00)
[2018-04-14] MEDS: Aspirin 81 mg CHEW TAB* 81 MG TAB.CHEW PO SCH (22:13)
[2018-04-15 05:31] LABS: ABS Basophils 0 10^3/ul (0-0.2); ABS Eosinophils 0 10^3/ul (0-0.6); ABS Lymphocytes 1.1 10^3/ul (1.0-4.8); ABS Monocytes 0.2 10^3/ul (0-0.8); ABS Neutrophils 4.2 10^3/ul (1.5-7.7); ABS Nucleated RBC 0 10^3/ul; Eosinophil % 0.1 %; Hematocrit 33 % (35-47); Mean Corpuscular HGB Conc 33 g/dl (31-36); Mean Corpuscular Hemoglobin 29 pg (27-31); Mean Corpuscular Volume 89 fL (80-97); Mean Platelet Volume 7.3 fL (7.4-10.4); Nucleated Red Blood Cells % 0.1; Platelet Count 267 10^3/ul (150-450); Red Blood Count 3.74 10^6/ul (4.00-5.40); Red Cell Distribution Width 16 % (10.5-15); White Blood Count 5.5 10^3/ul (3.5-10.8)
[2018-04-15 05:47] LABS: BUN/Creatinine Ratio 21.7 (8-20); Calcium 9.4 mg/dL (8.6-10.3); EGFR Non-African American 33.1 (>60); Potassium 3.8 mmol/L (3.5-5.0)
[2018-04-15] MEDS: Nicotine PATCH 21 MG/24 HR* PATCH TRANSDERM SCH (08:26)
[2018-04-15] MEDS: Apixaban* 5 MG TAB PO SCH ×2 (08:27→21:16)
[2018-04-15] MEDS: Carvedilol TAB* 6.25 MG PO SCH ×2 (08:27→21:17)
[2018-04-15] MEDS: cefTRIAXone(*) 1 GM in NS 0.9% 50 ML* 50 ML IVPB SCH (15:21)
[2018-04-15] MEDS ORDERED: Furosemide IV* 10 MG/ML 2 ML VIAL (20 MG) IV ONE (17:04)
--- NOTE | 2018-04-15 17:09 | PN ---
Subjective Date of Service: 04/15/18 Interval History: Reports sob and feeling exhausted Reports improvement from yday Objective Active Medications: Acetaminophen (Tylenol Tab*) 650 mg PO Q4H PRN PRN Reason: FEVER/PAIN Albuterol (Ventolin 2.5 Mg/3 Ml Neb.Belén*) 2.5 mg INH Q4H PRN PRN Reason: SOB/WHEEZING Apixaban (Eliquis*) 5 mg PO BID [facility] Last Admin: 04/15/18 08:27 Dose: 5 mg Aspirin (Aspirin 81 Mg Chew Tab*) 81 mg PO BEDTIME [facility] Last Admin: 04/14/18 22:13 Dose: 81 mg Carvedilol (Coreg Tab*) 3.125 mg PO BID [facility] Last Admin: 04/15/18 08:27 Dose: 3.125 mg Furosemide (Lasix Iv*) 20 mg IV DAILY ONE Stop: 04/15/18 17:05 Hydralazine HCl (Apresoline Iv*) 5 mg IV SLOW PU Q6H PRN PRN Reason: SBP>180 Ceftriaxone Sodium 1 gm/ (Sodium Chloride) 50 mls @ 200 mls/hr IVPB Q24H [facility] Last Admin: 04/15/18 15:21 Dose: 200 mls/hr Ceftriaxone Sodium 1 gm/ (Sodium Chloride) 50 mls @ 200 mls/hr IVPB Q24H [facility] Azithromycin 500 mg/ Sodium (Chloride) 250 mls @ 250 mls/hr IVPB Q24H [facility] Nicotine (Nicotine Patch 21 Mg/24 Hr*) 1 patch TRANSDERM DAILY@0800 [facility] Last Admin: 04/15/18 08:26 Dose: 1 patch Pharmacy Profile Note (Nicotine Patch Removal Note*) 1 note PATCH OFF 2100 [facility] Rosuvastatin Calcium (Crestor (Nf)) 2.5 mg PO MOWEFR [facility]; Protocol Vital Signs - 8 hr 04/15/18 11:58 Temperature 97.3 F Pulse Rate 84 Respiratory 18 Rate Blood Pressure 124/78 (mmHg) O2 Sat by Pulse 98 Oximetry Oxygen Devices in Use Now: None, Nasal Cannula Eyes: No Scleral Icterus Neck: NL Appearance and Movements; NL JVP Respiratory: Symmetrical Chest Expansion and Respiratory Effort, Clear to Auscultation, - - bronchial breath sounds,basal crackles Cardiovascular: NL Sounds; No Murmurs; No JVD, RRR Extremities: No Edema Neurological: Alert and Oriented x 3 Result Diagrams: 04/15/18 05:01 04/15/18 05:01 Microbiology and Other Data: Microbiology 04/14/18 15:30 Urine Culture - Preliminary Urine Escherichia Coli Legionella Urinary Antigen - Final Negative Legionella Antigen Streptococcus pneumoniae Ag Screen - Final Negative S. pneumo Antigen 04/15/18 08:40 Influenza Types A,B Antigen - Final Nasopharyngeal Specimen received for Influenza A/B Molecular testing Assess/Plan/Problems-Billing Assessment: - Patient Problems (1) CHF exacerbation Current Visit: Yes Status: Acute Code(s): I50.9 - HEART FAILURE, UNSPECIFIED SNOMED Code(s): 88483953 Comment: Acute on chronic systolic chf exacerbation EF prev known be to 25% Repeat Echo Initially BIPAP and recd lasix [address] on lasix 40 mg IV daily and eval progress (2) Pneumonia Current Visit: Yes Status: Acute Code(s): J18.9 - PNEUMONIA, UNSPECIFIED ORGANISM SNOMED Code(s): 591949249 Comment: RLL pneumonia on imaging will place on ceftriaxone,azithromycin (3) Renal failure Current Visit: Yes Status: Acute Comment: Not sure if acute or has stable CKD Will need to req old records to compare baseline ARB on hold currently (4) DVT (deep venous thrombosis) Current Visit: Yes Status: Acute Code(s): I82.409 - ACUTE EMBOLISM AND THOMBOS UNSP DEEP VN UNSP LOWER EXTREMITY SNOMED Code(s): 655045861 Comment: h/o dvt on eliquis per notes
[2018-04-15] MEDS: Furosemide IV* 10 MG/ML VIAL (40 MG) IV SCH (17:52)
[2018-04-15] MEDS ORDERED: cefTRIAXone(*) 1 GM in NS 0.9% 50 ML* 50 ML IVPB SCH (18:00)
[2018-04-15] MEDS ORDERED: Azithromycin IV(*) 500 MG in NS 0.9% 250 ML* 250 ML IVPB SCH (18:30)
[2018-04-15] MEDS ORDERED: Nicotine Patch Removal NOTE PATCH OFF SCH (21:00)
[2018-04-15] MEDS: Aspirin 81 mg CHEW TAB* 81 MG TAB.CHEW PO SCH (21:16)
[2018-04-16 05:52] LABS: ABS Basophils 0 10^3/ul (0-0.2); ABS Eosinophils 0.1 10^3/ul (0-0.6); ABS Lymphocytes 1.9 10^3/ul (1.0-4.8); ABS Monocytes 0.4 10^3/ul (0-0.8); ABS Neutrophils 6.1 10^3/ul (1.5-7.7); ABS Nucleated RBC 0 10^3/ul; Hematocrit 34 % (35-47); Hemoglobin 11.1 g/dl (12.0-16.0); Lymphocyte % 22.4 %; Mean Corpuscular HGB Conc 33 g/dl (31-36); Mean Corpuscular Hemoglobin 30 pg (27-31); Mean Corpuscular Volume 91 fL (80-97); Mean Platelet Volume 7.3 fL (7.4-10.4); Nucleated Red Blood Cells % 0; Platelet Count 272 10^3/ul (150-450); Red Blood Count 3.73 10^6/ul (4.00-5.40); Red Cell Distribution Width 16 % (10.5-15); White Blood Count 8.6 10^3/ul (3.5-10.8)
[2018-04-16 06:23] LABS: Calcium 9.3 mg/dL (8.6-10.3); Potassium 3.7 mmol/L (3.5-5.0)
[2018-04-16 06:29] LABS: BUN/Creatinine Ratio 24.5 (8-20); EGFR Non-African American 32.3 (>60)
[2018-04-16] MEDS: Furosemide IV* 10 MG/ML VIAL (40 MG) IV SCH (09:46)
[2018-04-16] MEDS: Nicotine PATCH 21 MG/24 HR* PATCH TRANSDERM SCH (09:46)
[2018-04-16] MEDS: Carvedilol TAB* 6.25 MG PO SCH (09:46)
[2018-04-16] MEDS: Apixaban* 5 MG TAB PO SCH (09:46)
--- NOTE | 2018-04-16 11:05 | ECHO ---
Patient: PABLO MOISE [facility] Rec#: [id number] : 1940 Date: 04/16/2018 Age: 77y Height: 162.56 cm / 64.0 in Weight: 62.14 kg / 137.0 lbs Sex: F BSA: 1.67 Room#: 435 Admit Date#: 04/14/2018 Type: Inpatient Referring: Romel Jerry NP Reading: Vaughn Haley MD Artificial Fly Tier: Mar Vásquez RDCS CC: Brandi Moulton V GRO[employer] C[employer]TER Transthoracic Echocardiogram Indication: CHF/SOB BP: 142/88 HR: 91 Rhythm: NSR Findings History: Depression,cardiomyopathy with Life Vest [place],HTN,polio. Technical Comments: The study quality is good. HOB at 90 degrees. Completed [id number]. Left Ventricle: The left ventricular chamber size is normal. Posterior wall hypertrophy is observed. Severe global hypokinesis of the left ventricle is observed. There is severely decreased left ventricular systolic function. The estimated ejection fraction is less than 20%. Abnormal left ventricular diastolic function is observed. Left Atrium: The left atrium is mildly dilated. Right Ventricle: The right ventricular cavity size is normal. The right ventricular global systolic function is mildly to moderately reduced. Right Atrium: The right atrium is mildly dilated. Aortic Valve: The aortic valve is trileaflet. There is no evidence of aortic regurgitation. There is no evidence of aortic stenosis. Mitral Valve: The mitral valve leaflets are mildly thickened. There is mild to moderate mitral regurgitation. There is no evidence of mitral stenosis. Tricuspid Valve: The tricuspid valve leaflets are normal. There is trace tricuspid regurgitation. Unable to estimate the right ventricular systolic pressure. There is no tricuspid stenosis. Pulmonic Valve: The pulmonic valve appears normal. There is no evidence of pulmonic regurgitation. There is no pulmonic stenosis. Pericardium: The pericardium appears normal. Aorta: The ascending aorta is not well visualized. The aortic arch is not well visualized. There is no dilation of the aortic root. Pulmonary Artery: The main pulmonary artery appears normal. Venous: The venous system is not well visualized. Conclusions Posterior wall hypertrophy is observed. Severe global hypokinesis of the left ventricle is observed. There is severely decreased left ventricular systolic function. The estimated ejection fraction is less than 20%. The right ventricular global systolic function is mildly to moderately reduced. There is no evidence of aortic stenosis. There is mild to moderate mitral regurgitation. There is trace tricuspid regurgitation. Unable to estimate the right ventricular systolic pressure. The pericardium appears normal. Compared to study of 07/26/17, the LV function is lower. the valve structures are the same Measurements Name Value Normal Range RVIDd (AP) 2D 2.4 cm (0.9 - 2.6) RVDdMajor (2D) 2.2 cm (2.2 - 4.4) RAd ISD 4CH 5.5 cm (3.4 - 4.9) RA (A4C)W 3 cm (2.9 - 4.6) IVSd (2D) 1 cm (0.6 - 1) LVPWd (2D) 1.6 cm (0.6 - 1) LVIDd (2D) 5.1 cm (3.6 - 5.4) LVIDs (2D) 4.4 cm - LV FS (2D) 9 % (25 - 45) Aortic Annulus 1.8 cm (1.4 - 2.6) Ao root diameter (2D) 2.7 cm (2.1 - 3.5) LA dimension (AP) 2D 3.9 cm (2.3 - 3.8) LAd ISD 4CH 6.3 cm (2.9 - 5.3) LA ISD 4CH W 3.6 cm (2.5 - 4.5) Name Value Normal Range LA ESV SP 4CH (A/L) 56 ml - LA ESV SP 2CH (A/L) 70 ml - LA ESV BP (A/L) 70 ml - LA ESV BP (A/L) index 42 ml/m2 - LA ESV SP 4CH (MOD) 53 ml - LA ESV SP 2CH (MOD) 67 ml - Name Value Normal Range MV E-wave Vmax 0.05 m/sec - MV deceleration time 113 msec - MV A-wave Vmax 1.4 m/sec - MV E:A ratio 0.91 ratio - LV septal e' Vmax 0.05 m/sec - LV lateral e' Vmax 0.05 m/sec - LV average e' Vmax 0.05 m/sec - LV E:e' septal ratio 10 ratio - LV E:e' lateral ratio 10 ratio - LV average E:e' ratio 1 ratio - Name Value Normal Range AV Vmax 1.1 m/sec - AV VTI 22.7 cm - AV peak gradient 4.82 mmHg - AV mean gradient 2.65 mmHg - LVOT Vmax 0.9 m/sec - LVOT VTI 17.8 cm - LVOT peak gradient 3.21 mmHg - LVOT mean gradient 1.51 mmHg - Name Value Normal Range MR Vmax 5.6 m/sec - MR VTI 187.3 cm - Name Value Normal Range PV Vmax 0.6 m/sec - PV peak gradient 1.51 mmHg -
[2018-04-16 13:05] LABS: Urine Creatinine Concentration 13.35 mg/dL
[2018-04-16] MEDS: cefTRIAXone(*) 1 GM in NS 0.9% 50 ML* 50 ML IVPB SCH (15:51)
[2018-04-16 15:53] VITALS: BP 150/82
[2018-04-16] MEDS ORDERED: CMCS:Rosuvastatin (NF) 5 MG TAB PO SCH (17:00)
--- NOTE | 2018-04-16 20:52 | DS ---
CC: Brandi Moulton NP; Deanna Perez MD * DISCHARGE SUMMARY: DATE OF ADMISSION: 04/14/18 DATE OF DISCHARGE: 04/16/18 PRIMARY CARE PROVIDER: Brandi Moulton NP CARDIOLOGY: Deanna Perez MD. PRIMARY DIAGNOSIS: Congestive heart failure exacerbation. SECONDARY DIAGNOSES: 1. Possible pneumonia with right lower lobe infiltrate. 2. Chronic kidney disease, likely stage 2-3. 3. Anxiety with depression. 4. Hypertension. 5. Coronary artery disease, nonobstructive. 6. History of peripheral vascular disease with aorto-fem bypass. 7. History of polio. 8. Chronic obstructive pulmonary disease. 9. Tobacco abuse. MEDICATIONS ON DISCHARGE: 1. Apixaban 5 mg p.o. b.i.d. 2. Aspirin 81 mg p.o. daily. 3. Carvedilol 3.125 mg p.o. b.i.d. 4. DuoNeb 1 inhalation q.4 hours while awake. 5. Losartan 12.5 mg p.o. daily. 6. Magnesium oxide 400 mg p.o. daily. 7. Rosuvastatin 2.5 mg every other day in the evening. 8. Acetaminophen as needed. 9. Azithromycin 250 mg p.o. daily for 4 days. 10. Cefuroxime 500 mg p.o. b.i.d. for 6 days. 11. Furosemide 40 mg p.o. daily. 12. Nicotine patch 21 mg topically every 24 hours. HOSPITAL COURSE: A 77-year-old woman with known congestive heart failure, ejection fraction 25% to 30%, presented with 2 weeks of progressive pitting edema. She states that one of her doctors reduced her Lasix from 40 to 20 mg per day. She denies excessive use of salt, but she was willing to listen about avoiding high- sodium foods such as TV dinners, canned soups, chips, etc. The patient was admitted to the telemetry unit and has had IV diuretics started in the emergency room and continued as inpatient. She had a reasonable diuresis with a urine output balance of negative 700 mL on the day of discharge. She was ambulatory, eating well, feels near her baseline pulmonary status. Her chest x-ray did show congestive heart failure and a possible right lower lobe infiltrate. She was treated with intravenous ceftriaxone and azithromycin and converted to Ceftin and azithromycin orally upon discharge. She did not have severe wheezing and did not require any steroids while she was in the hospital for probable COPD. The patient's cardiac status is concerning. She has low EF and wears a LifeVest from Cardiology. She states that she is a possible candidate for AICD and this should be followed up as an outpatient. DISCHARGE PHYSICAL EXAMINATION: Temperature is 36.3, pulse 86, respirations 18 , blood pressure was 130/78 after 150/82. Oxygen saturation was 100% on 2 L. Her physical examination, she has clear lungs, diminished breath sounds. Heart : Regular rate and rhythm. Abdomen: Soft. She has 2+ pitting edema in the right lower extremity, 1+ in the left lower extremity. 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 It appears friable. DISPOSITION: To home. The patient will have visiting nurse. The patient requires referral with Dermatology for this exophytic mass. The patient should continue her home oxygen which she has 2 L at home. The patient should see Dr. Perez from Cardiology within 2 weeks for consideration of AICD placement. The patient to see primary care doctor within 1 week. DIET: Low salt. ACTIVITY: As tolerated. [id number]/[facility] #: [id number] MTDD
== END 2018-04-16 18:22 | disposition home health service (06) | DRG 291 ==
LOC: ED 13:55 → MEDTELE 16:25
PROVIDERS: ADMIT Internal Medicine; ATTEND Internal Medicine
DX: I13.0 Hypertensive heart and chronic kidney disease with heart failure and stage 1 through stage 4 chronic kidney disease, or unspecified chronic kidney disease (principal); I50.23 Acute on chronic systolic (congestive) heart failure; J18.9 Pneumonia, unspecified organism; N17.9 Acute kidney failure, unspecified; J44.9 Chronic obstructive pulmonary disease, unspecified; N18.3 Chronic kidney disease, stage 3 (moderate); C76.0 Malignant neoplasm of head, face and neck; I42.9 Cardiomyopathy, unspecified; Z79.01 Long term (current) use of anticoagulants; F41.8 Other specified anxiety disorders; I25.10 Atherosclerotic heart disease of native coronary artery without angina pectoris; F17.210 Nicotine dependence, cigarettes, uncomplicated; S91.002D Unspecified open wound, left ankle, subsequent encounter; X58.XXXD Exposure to other specified factors, subsequent encounter; Z86.12 Personal history of poliomyelitis; Z86.718 Personal history of other venous thrombosis and embolism; Z79.899 Other long term (current) drug therapy; Z88.6 Allergy status to analgesic agent; Z88.8 Allergy status to other drugs, medicaments and biological substances; Z82.49 Family history of ischemic heart disease and other diseases of the circulatory system; Z81.1 Family history of alcohol abuse and dependence; I73.9 Peripheral vascular disease, unspecified
CPT/HCPCS: 36415; 71045; 80048; 80053; 81003; 81015; 82570; 82803; 83605; 83735; 83880; 84300; 84484; 85025; 85610; 85652; 85730; 86140; 87077; 87086; 87186; 87899; 93005; 93306; 99285; A9270-GY; J0456; J0696; J1940

== ENCOUNTER 2018-06-04 11:55 | Observation (INO) | payer MEDICARE, OTHER ==
[2018-06-04 12:46] LABS: ABS Basophils 0.1 10^3/ul (0-0.2); ABS Eosinophils 0.3 10^3/ul (0-0.6); ABS Lymphocytes 2.1 10^3/ul (1.0-4.8); ABS Monocytes 0.4 10^3/ul (0-0.8); ABS Neutrophils 3.2 10^3/ul (1.5-7.7); ABS Nucleated RBC 0 10^3/ul; Hematocrit 39 % (35-47); Hemoglobin 12.5 g/dl (12.0-16.0); Lymphocyte % 34.8 %; Mean Corpuscular HGB Conc 32 g/dl (31-36); Mean Corpuscular Hemoglobin 29 pg (27-31); Mean Corpuscular Volume 90 fL (80-97); Nucleated Red Blood Cells % 0; Platelet Count 296 10^3/ul (150-450); Red Blood Count 4.31 10^6/ul (4.00-5.40); Red Cell Distribution Width 16 % (10.5-15); White Blood Count 6.1 10^3/ul (3.5-10.8)
[2018-06-04 12:52] LABS: INR 0.9 (0.77-1.02)
[2018-06-04] MEDS ORDERED: Diazepam TAB(*) 5 MG PO ONE (13:00)
[2018-06-04] MEDS ORDERED: Clindamycin 600 MG/D5W BAG(*) 600 MG/50 ML BAG IV ONE (13:00)
[2018-06-04 13:08] LABS: BUN/Creatinine Ratio 11.3 (8-20); Calcium 9.4 mg/dL (8.6-10.3); EGFR African American 40.6 (>60); EGFR Non-African American 33.6 (>60); Potassium 4.5 mmol/L (3.5-5.0)
[2018-06-04] MEDS ORDERED: Diazepam TAB(*) 5 MG ONE (13:38)
[2018-06-04] MEDS ORDERED: Lidocaine 1% INJ* 10 MG/ML 30 ML SDV ONE (14:03)
[2018-06-04] MEDS ORDERED: fentaNYL* 50 MCG/ML 2 ML VIAL (100 MCG VIAL) ONE (14:04)
[2018-06-04] MEDS ORDERED: Midazolam* 1 MG/ML 5 ML VIAL (5 MG) ONE (14:04)
[2018-06-04] MEDS ORDERED: Naloxone* 0.4 MG/ML 1 ML VIAL ONE (14:10)
[2018-06-04] MEDS ORDERED: Flumazenil* 0.1 MG/ML 5 ML MDV ONE (14:10)
[2018-06-04] MEDS ORDERED: oxyCODONE/Acetamin 5/325 MG* TAB PO PRN (14:41)
[2018-06-04] MEDS ORDERED: Acetaminophen TAB* 325 MG PO PRN (14:41)
[2018-06-04] MEDS: NS 0.9% 1000 ML** 1,000 ML IV SCH (17:30)
[2018-06-04] MEDS: Carvedilol TAB* 6.25 MG PO SCH (21:19)
[2018-06-04] MEDS: Clindamycin CAP* 150 MG PO SCH (21:20)
[2018-06-04] MEDS: Sacubitril/Valsartan 24/26(NF) 1 TAB PO SCH (21:31)
[2018-06-04] MEDS ORDERED: Al Hydrox/Mg Hydrox/Simet LIQ* 30 ML UDC PO PRN (22:59)
--- NOTE | 2018-06-05 01:35 | OP ---
DATE OF OPERATION: 06/04/18 - ROOM #448 DATE OF : 38 SURGEON: Vaughn Haley MD ANESTHESIA: Local anesthesia with conscious sedation. PRE-OP DIAGNOSIS: Ischemic cardiomyopathy. POST-OP DIAGNOSIS: Ischemic cardiomyopathy. OPERATIVE PROCEDURE: Single-chamber ICD implantation. ESTIMATED BLOOD LOSS: Nil. COMPLICATIONS: None. INDICATIONS: The patient is a 77-year-old female with a history of coronary artery disease, history of cardiomyopathy with ejection fraction less than 35%. ICD implantation was recommended for primary prevention of sudden cardiac due to ventricular arrhythmias. This was discussed in great detail with the patient. Alternatives were discussed as well as the possibility of not placing an ICD. The patient is willing to proceed. DESCRIPTION OF PROCEDURE: The patient was placed supine on the procedure table. Her left deltopectoral area was cleaned and draped in the usual fashion. Lidocaine 1% was used for local anesthesia. The axillary vein was entered via modified Seldinger technique using ultrasound guidance and a guidewire was placed. A 3.5 cm incision was made in the pectoral area. Blunt dissection was carried down to the pectoral fascia and a pocket was fashioned for the ICD. Over the guidewire, a 9- Frisian sheath introducer was placed through which a right ventricular ICD lead was advanced to the RV apex. The right ventricular lead is a Medtronic model 6935M, serial number [id number]. It had an R-wave sensitivity of 13, impendence 634 ohms, threshold 0.5 volts at 0.4 milliseconds. The ventricular lead was sutured to the pectoral fascia. The pocket was flushed. A generator was attached to the ventricular lead. The generator was a Medtronic, model [id number], serial number [id number]. The device was placed in the pocket. The surgical incision was closed in three layers. [id number]/[facility] #: [id number] MTDAnne
[2018-06-05] MEDS: Clindamycin CAP* 150 MG PO SCH (05:09)
[2018-06-05] MEDS: Carvedilol TAB* 6.25 MG PO SCH (08:42)
[2018-06-05] MEDS: NS 0.9% 1000 ML** 1,000 ML IV SCH (08:43)
[2018-06-05] MEDS: Sacubitril/Valsartan 24/26(NF) 1 TAB PO SCH (08:49)
[2018-06-05] MEDS ORDERED: Aspirin 81 mg CHEW TAB* 81 MG TAB.CHEW PO SCH (09:00)
--- NOTE | 2018-06-05 10:44 | DS ---
CC: Dr. Deanna Perez; Almaz Hamilton NP DISCHARGE SUMMARY: DATE OF ADMISSION: 06/04/18 DATE OF DISCHARGE: 06/05/18 INDICATION FOR ADMISSION: ICD implantation. Please see admission history and physical dictated on 05/18/18. HISTORY OF PRESENT ILLNESS AND HOSPITAL COURSE: The patient is a 77-year-old female with a history o f coronary artery disease, history of ischemic cardiomyopathy, and congestive heart failure. ICD imp lantation was recommended for primary prevention. The patient underwent single-chamber ICD implantation. The patient had a [employer] single-chamber pa cemaker implanted yesterday. Today, the interrogation shows normal function of the device. R-wave t hreshold 18 mV, impedance 513 ohms, shock lead impedance 67 ohms, threshold 0.4 volts at 0.4 msec. N o abnormal rhythms detected. DISCHARGE MEDICATIONS: 1. Entresto twice a day. 2. Crestor 5 mg tablets 1/2 tab 3 times a week. 3. O2 at night. 4. Lasix 20 mg a day. 5. Coreg 3.125 mg b.i.d. 6. Aspirin 81 mg a day. 7. Eliquis 5 mg b.i.d., which we will restart tonight. 8. Ventolin inhaler. 9. Tylenol as directed. 10. Clindamycin 150 mg 3 times a day for 3 days. PHYSICAL EXAMINATION: On physical exam, lungs are clear to auscultation. Cardiac Exam: S1, S2, wit hout any murmurs, rubs, or gallops. Extremities show no edema. Her pacer site is healing well. Ther e is no erythema. There is no ecchymosis. A new dressing was applied. DISPOSITION: The patient will be discharged home. FOLLOWUP: The patient will follow up in 1 week. [id number]/[facility] #: [id number]
[2018-06-05 12:07] VITALS: BP 135/69
== END 2018-06-05 12:45 | disposition home or self-care (01) ==
LOC: CHICATH 11:55 → MEDTELE 14:41
PROVIDERS: ADMIT Specialist; ATTEND Specialist
DX: I42.9 Cardiomyopathy, unspecified (principal); I25.10 Atherosclerotic heart disease of native coronary artery without angina pectoris; I50.9 Heart failure, unspecified; Z79.82 Long term (current) use of aspirin; Z88.0 Allergy status to penicillin; I73.9 Peripheral vascular disease, unspecified; I63.9 Cerebral infarction, unspecified; I50.20 Unspecified systolic (congestive) heart failure; N18.9 Chronic kidney disease, unspecified; E78.5 Hyperlipidemia, unspecified; F17.210 Nicotine dependence, cigarettes, uncomplicated
CPT/HCPCS: 33249; 36415; 71045; 71046; 80048; 85025; 85610; 96365; 96375; 99156; 99157; A9270-GY; C1722; C1895; G0378; J2250; J2310; J3010

== ENCOUNTER 2018-10-31 06:29 | Day surgery (SDC) | payer MEDICARE, MEDICAID ==
[~2018-10-31 06:29] MED LIST changes: +Acetaminophen TAB* 325 MG PO PRN; +Buffered Lidocaine 1% SYRIN* 1 ML/SYRINGE INTRADERM ONE; -Tetan/Diph/Pertus SYR(Tdap)* 0.5 ML SYR(BOOSTRIX) use SYR IM ONE
[2018-10-31] MEDS ORDERED: Midazolam* 1 MG/ML 2 ML VIAL (2 MG) ONE (07:28)
[2018-10-31 09:06] VITALS: BP 146/82
--- NOTE | 2018-10-31 09:12 | OP ---
DATE OF OPERATION: 10/31/18 [facility] DATE OF : 38 SURGEON: Sundeep Mckenna MD PREOPERATIVE DIAGNOSIS: Cataract, right eye. POSTOPERATIVE DIAGNOSIS: Cataract, right eye. OPERATIVE PROCEDURE: Extracapsular cataract extraction with IOL and CTR right eye. DESCRIPTION OF PROCEDURE: The patient was brought to the operating room after being given 1/2% Alcaine with epinephrine drops in the preoperative area. The eye was prepped and draped in the usual sterile fashion. Sterile drape and eyelid speculum were placed. Again, topical 1/2% Alcaine with epinephrine was given. A paracentesis incision was made at the 9 o'clock position with the No.75 blade. Clear cornea incision 2.2 x 2.2-mm was created at the 12 o'clock position starting at the anterior limbus using the 2.2-mm keratome. The anterior chamber was irrigated with 0.4 mL of 1% non-preservative intracameral lidocaine and filled with DisCoVisc. A capsulorrhexis was completed using the cystotome and the Utrata forceps. Hydrodissection was performed with balanced salt solution. The lens nucleus was removed with the Phacoemulsification handpiece without incident. Cortex was removed with the irrigation-aspiration handpiece. The capsular bag was re-inflated using DisCoVisc and an SN60WF 16.5 implant was inserted with the shooter. The irrigation-aspiration handpiece was used to remove all residual DisCoVisc. The eye was refilled with balanced salt solution and the wound checked and found to be watertight. Topical Maxitrol drops were given. [id number]/[facility] #: [id number] [facility]
[2018-10-31] MEDS ORDERED: Neomycin/Polymy/Dex OPTH.SUSP* MAXITROL 0.1% 5 ML ONE (10:00)
[2018-10-31] MEDS ORDERED: Phenylephrine OPHTH SOL 2.5%* 2 ML ONE (10:00)
[2018-10-31] MEDS ORDERED: Ketorolac 0.5% OPHTH (NF) 0.5 % 5 ML BTL ONE (10:00)
[2018-10-31] MEDS ORDERED: Povidone Iodine 5% OPTH* 30 ML BTL ONE (10:00)
[2018-10-31] MEDS ORDERED: acetaZOLAMIDE TAB* 250 MG ONE (10:00)
[2018-10-31] MEDS ORDERED: Lidocaine 2% w/ EPI 1:200,000* 20 ML SDV VIAL ONE (10:00)
[2018-10-31] MEDS ORDERED: Cyclopentolate 1% OPTH.SOL* 2 ML BTL ONE (10:00)
[2018-10-31] MEDS ORDERED: Lidocaine 1% MPF ** 5 ML VIAL ONE (10:00)
[2018-10-31] MEDS ORDERED: Proparacaine 0.5% OPHTH.SOL* 15 ML BTL ONE (10:01)
--- NOTE | 2018-11-01 14:43 | OP ---
DATE OF OPERATION: 10/31/18 - [facility] DATE OF : 38 SURGEON: Sundeep Mckenna M.D. PREOPERATIVE DIAGNOSIS: Cataract, right eye. POSTOPERATIVE DIAGNOSIS: Cataract, right eye. OPERATIVE PROCEDURE: Extracapsular cataract extraction with intraocular lens implant and CTR, right eye. DESCRIPTION OF PROCEDURE: The patient was brought to the operating room after being given 1/2% Alcaine with epinephrine drops in the preoperative area. The eye was prepped and draped in the usual sterile fashion. Sterile drape and eyelid speculum were placed. Again, topical 1/2% Alcaine with epinephrine was given. A paracentesis incision was made at the 9 o'clock position with the No.75 blade. Clear cornea incision 2.2 x 2.2-mm was created at the 12 o'clock position starting at the anterior limbus using the 2.2-mm keratome. The anterior chamber was irrigated with 0.4 mL of 1% non-preservative intracameral lidocaine and filled with DisCoVisc. A capsulorrhexis was completed using the cystotome and the Utrata forceps. Hydrodissection was performed with balanced salt solution. The lens nucleus was removed with the Phacoemulsification handpiece without incident. Cortex was removed with the irrigation-aspiration handpiece. The capsular bag was re-inflated using DisCoVisc and an SN60WF 16.5 implant was inserted with the shooter. This was followed by capsular tension ring inserted with the shooter. 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 The irrigation- aspiration handpiece was used to remove all residual DisCoVisc. The eye was refilled with balanced salt solution and the wound checked and found to be watertight. Topical Maxitrol drops were given. [id number]/[facility] #: [id number] [facility]
== END 2018-10-31 08:15 | disposition home or self-care (01) ==
LOC: OREAST 06:29
PROVIDERS: ATTEND Specialist
DX: H25.813 Combined forms of age-related cataract, bilateral (principal); H40.1434 Capsular glaucoma with pseudoexfoliation of lens, bilateral, indeterminate stage; F17.218 Nicotine dependence, cigarettes, with other nicotine-induced disorders; J44.9 Chronic obstructive pulmonary disease, unspecified; I42.9 Cardiomyopathy, unspecified; Z79.01 Long term (current) use of anticoagulants; Z86.718 Personal history of other venous thrombosis and embolism
CPT/HCPCS: A9270-GY; J2250; V2632

== ENCOUNTER → 2018-11-07 | Day surgery (SDC) | payer MEDICARE, MEDICAID ==
[~2018-11-07] MED LIST changes: -Acetaminophen TAB* 325 MG PO PRN; +Cyclopentolate 1% OPTH.SOL* 2 ML BTL ONE; +Ketorolac 0.5% OPHTH (NF) 0.5 % 5 ML BTL ONE; +Lidocaine 1% MPF ** 5 ML VIAL ONE; +Lidocaine 2% w/ EPI 1:200,000* 20 ML SDV VIAL ONE; +Midazolam* 1 MG/ML 2 ML VIAL (2 MG) ONE; +Neomycin/Polymy/Dex OPTH.SUSP* MAXITROL 0.1% 5 ML ONE; +Phenylephrine OPHTH SOL 2.5%* 2 ML ONE; +Povidone Iodine 5% OPTH* 30 ML BTL ONE; +Proparacaine 0.5% OPHTH.SOL* 15 ML BTL ONE; +acetaZOLAMIDE TAB* 250 MG ONE
--- NOTE | 2018-11-07 09:20 | OP ---
OPERATIVE NOTE: DATE OF OPERATION: 11/07/18 DATE OF : 38 SURGEON: Sundeep Mckenna M.D. PREOPERATIVE DIAGNOSIS: Cataract, left eye. POSTOPERATIVE DIAGNOSIS: Cataract, left eye. OPERATIVE PROCEDURE: Extracapsular cataract extraction with intraocular lens implant, left eye, and CTR. PROCEDURE: The patient was brought to the operating room after being given 1/2% Alcaine with epineph rine drops in the preoperative area. The eye was prepped and draped in the usual sterile fashion. S terile drape and eyelid speculum were placed. Again, topical 1/2% Alcaine with epinephrine was given . A paracentesis incision was made at the 3 o'clock position with the No.75 blade. Clear cornea inc ision 2.2 x 2.2 mm was created at the 6 o'clock position starting at the anterior limbus using the 2. 2 mm keratome. The anterior chamber was irrigated with 0.4 mL of 1% non-preservative intracameral li docaine and filled with DisCoVisc. A capsulorrhexis was completed using the cystotome and the Utrata forceps. Hydrodissection was performed with balanced salt solution. The lens nucleus was removed wi th the Phacoemulsification handpiece without incident. Cortex was removed with the irrigation-aspira tion handpiece. The capsular bag was re-inflated using DisCoVisc and an SN60WF 17 implant was insert ed with the shooter. This was followed by capsular tension ring, a CTR 11, inserted with the capsula r bag without difficulty. The indication for complex cataract surgery, pseudoexfoliation requiring a capsular tension device. The irrigation-aspiration handpiece was used to remove all residual DisCoVisc. The eye was refilled with balanced salt solution and the wound checked and found to be watertight. Topical Maxitrol drops were given. [id number]/[facility] #: [id number]
[2018-11-07 09:37] VITALS: BP 151/62
== END | disposition home or self-care (01) ==
LOC: OREAST 06:25
PROVIDERS: ATTEND Specialist
DX: H25.812 Combined forms of age-related cataract, left eye (principal); H40.1434 Capsular glaucoma with pseudoexfoliation of lens, bilateral, indeterminate stage; Z72.0 Tobacco use; I10 Essential (primary) hypertension; E78.00 Pure hypercholesterolemia, unspecified; D23.112 Other benign neoplasm of skin of right lower eyelid, including canthus; Z95.5 Presence of coronary angioplasty implant and graft; Z79.01 Long term (current) use of anticoagulants; Z95.0 Presence of cardiac pacemaker; I25.10 Atherosclerotic heart disease of native coronary artery without angina pectoris; J44.9 Chronic obstructive pulmonary disease, unspecified
CPT/HCPCS: A9270-GY; J2250; V2632

== ENCOUNTER 2019-10-08 19:03 | Inpatient (IN) ==
[2019-10-08 20:29] LABS: ABS Lymphocytes 0.4 10^3/ul (1.0-4.8); ABS Monocytes 0.6 10^3/ul (0-0.8); Hematocrit 28 % (35-47); Hemoglobin 9.4 g/dL (12.0-16.0); Lymphocyte % 3.1 %; Mean Corpuscular HGB Conc 34 g/dL (31-36); Mean Corpuscular Hemoglobin 30 pg (27-31); Mean Corpuscular Volume 89 fL (80-97); Mean Platelet Volume 7.7 fL (7.4-10.4); Platelet Count 176 10^3/uL (150-450); Red Blood Count 3.14 10^6 /uL (3.70-4.87); Red Cell Distribution Width 16 % (10-15); White Blood Count 13.8 10^3/uL (3.5-10.8)
[2019-10-08 20:45] LABS: ALT 22 U/L (7-52); AST 52 U/L (13-39); Albumin 2.9 g/dL (3.2-5.2); Albumin/Globulin Ratio 0.9 (1-3); Alkaline Phosphatase 102 U/L (34-104); BUN/Creatinine Ratio 8.5 (8-20); Blood Urea Nitrogen 65 mg/dL (6-24); CO2 Carbon Dioxide 25 mmol/L (22-32); Calcium 8.3 mg/dL (8.6-10.3); Chloride 93 mmol/L (101-111); EGFR African American 6.2 (>60); EGFR Non-African American 5.1 (>60); Globulin 3.4 g/dL (2-4); Glucose 125 mg/dL (70-100); Magnesium 1.8 mg/dL (1.9-2.7); Sodium 126 mmol/L (135-145); Total Protein 6.3 g/dL (6.4-8.9)
[2019-10-08 20:54] LABS: Anion Gap 8 mmol/L (2-11); Potassium 5.6 mmol/L (3.5-5.0)
[2019-10-08 20:56] LABS: Troponin I 0.03 ng/mL (<0.03)
[2019-10-08 21:19] LABS: Urine Appearance Turbid; Urine Bilirubin Negative (Negative); Urine Blood 3+ (Negative); Urine Color Yellow; Urine Glucose Negative (Negative); Urine Ketones Negative (Negative); Urine Nitrite Negative (Negative); Urine Protein 2+(100 mg/dL) (Negative); Urine Specific Gravity 1.014 (1.010-1.030); Urine Urobilinogen Negative (Negative)
[2019-10-08 21:34] LABS: TSH (Thyroid Stimulating Horm) 3.48 mcIU/mL (0.34-5.60)
[2019-10-08 21:37] LABS: Urine Bacteria Absent (Absent); Urine Red Blood Cell 3+(>10/hpf) (Absent); Urine White Blood Cell 3+(>20/hpf) (Absent)
[2019-10-08] MEDS ORDERED: NS 0.9% 1000 ml BAG 1,000 ML IV SCH (23:30)
[2019-10-08] MEDS ORDERED: Magnesium Sulfate IV 1GM/100ML 1 GM/100 ML BAG IV ONE (23:43)
[2019-10-09 00:07] LABS: C Reactive Protein 280.68 mg/L (<8.01); Creatine Kinase 107 U/L (10-223)
[2019-10-09 00:25] LABS: Ferritin 230.1 ng/mL (11-307)
[2019-10-09 00:27] LABS: Urine Creatinine Concentration 157.19 mg/dL
[2019-10-09 00:34] LABS: UR Microalbumin (mg/L) 294.5 mg/L; Urine Creatinine 156.63 mg/dL
[2019-10-09] MEDS ORDERED: Albuterol HFA INHALER 8 gm MDI INH PRN (00:35)
[2019-10-09 03:26] LABS: INR 2.37 (0.82-1.09)
[2019-10-09 03:39] LABS: Hepatitis B Surface Antigen Nonreactive (Nonreactive)
[2019-10-09 03:56] LABS: Hepatitis B Surface Ab Not Immune (Immune); Hepatitis C Antibody Negative (Negative)
[2019-10-09] MEDS: Heparin 5000 UNITS/ML 1 mL VIAL SUBCUT SCH ×3 (05:43→22:29)
[2019-10-09] MEDS: CMCS:Rosuvastatin 5 mg TAB (NF) PO SCH (05:43)
[2019-10-09 05:48] LABS: ABS Lymphocytes 0.6 10^3/ul (1.0-4.8); ABS Monocytes 0.4 10^3/ul (0-0.8); Hematocrit 27 % (35-47); Lymphocyte % 6.2 %; Mean Corpuscular HGB Conc 33 g/dL (31-36); Mean Corpuscular Hemoglobin 29 pg (27-31); Mean Corpuscular Volume 89 fL (80-97); Mean Platelet Volume 7.3 fL (7.4-10.4); Platelet Count 197 10^3/uL (150-450); Red Blood Count 3.09 10^6 /uL (3.70-4.87); Red Cell Distribution Width 16 % (10-15); White Blood Count 9.7 10^3/uL (3.5-10.8)
[2019-10-09 06:32] LABS: Anion Gap 10 mmol/L (2-11); CO2 Carbon Dioxide 24 mmol/L (22-32); Chloride 94 mmol/L (101-111); Sodium 128 mmol/L (135-145)
[2019-10-09 06:38] LABS: BUN/Creatinine Ratio 10.5 (8-20); Blood Urea Nitrogen 74 mg/dL (6-24); EGFR African American 6.8 (>60); EGFR Non-African American 5.6 (>60); Glucose 93 mg/dL (70-100)
[2019-10-09 06:56] LABS: % Iron Saturation 7 % (15-55); Iron < 20 ug/dL (50-212); LDH 235 U/L (140-271); Total Iron Binding Capacity 267 mcg/dL (250-450); Transferrin 191 mg/dL (203-362)
[2019-10-09 07:41] LABS: Erythrocyte Sed Rate 80 mm/Hr (0-29)
[2019-10-09] MEDS: SPIRIVA Respimat (tiotropium) 2.5 mcg/inh Inhaler INH SCH (08:05)
[2019-10-09] MEDS: Mometasone/Formoter 100/5 MDI INH SCH ×2 (08:05→20:36)
[2019-10-09 08:56] LABS: Magnesium 2.3 mg/dL (1.9-2.7)
[2019-10-09 08:59] LABS: Troponin I 0.02 ng/mL (<0.03)
[2019-10-09 15:11] LABS: BUN/Creatinine Ratio 12.4 (8-20); Calcium 8.4 mg/dL (8.6-10.3); EGFR African American 7.6 (>60); EGFR Non-African American 6.3 (>60); Magnesium 2.3 mg/dL (1.9-2.7); Potassium 4.7 mmol/L (3.5-5.0)
[2019-10-09 23:23] LABS: Urine Appearance Cloudy; Urine Bilirubin Negative (Negative); Urine Blood 2+ (Negative); Urine Color Yellow; Urine Glucose Negative (Negative); Urine Ketones Negative (Negative); Urine Nitrite Negative (Negative); Urine Protein 1+(30 mg/dL) (Negative); Urine Specific Gravity 1.008 (1.010-1.030); Urine Urobilinogen Negative (Negative)
[2019-10-09 23:27] LABS: Urine Bacteria 1+ (Absent); Urine Red Blood Cell 3+(>10/hpf) (Absent); Urine Squamous Epithelial Cell Present (Absent); Urine White Blood Cell 3+(>20/hpf) (Absent)
[2019-10-09 23:37] LABS: Urine Creatinine 77.95 mg/dL; Urine Creatinine Concentration 77.95 mg/dL
[2019-10-10 00:21] LABS: UR Microalbumin (mg/L) 61.7 mg/L; Urine Microalbumin/Creatinine 79.1 (<31)
[2019-10-10] MEDS: Cefepime 0.5 GM in NS 0.9% 50 ML 50 ML IVPB SCH ×2 (01:06→23:30)
[2019-10-10 07:09] LABS: ABS Lymphocytes 0.8 10^3/ul (1.0-4.8); ABS Monocytes 0.4 10^3/ul (0-0.8); Eosinophil % 0.3 %; Hematocrit 27 % (35-47); Hemoglobin 9.1 g/dL (12.0-16.0); Lymphocyte % 12.2 %; Mean Corpuscular HGB Conc 33 g/dL (31-36); Mean Corpuscular Hemoglobin 30 pg (27-31); Mean Corpuscular Volume 89 fL (80-97); Mean Platelet Volume 8.1 fL (7.4-10.4); Nucleated Red Blood Cells % 0.1; Platelet Count 195 10^3/uL (150-450); Red Blood Count 3.07 10^6 /uL (3.70-4.87); Red Cell Distribution Width 16 % (10-15); White Blood Count 6.2 10^3/uL (3.5-10.8)
[2019-10-10 07:32] LABS: BUN/Creatinine Ratio 15.9 (8-20); Calcium 7.7 mg/dL (8.6-10.3); EGFR African American 9.6 (>60); EGFR Non-African American 7.9 (>60); Magnesium 2.3 mg/dL (1.9-2.7); Potassium 4.6 mmol/L (3.5-5.0)
[2019-10-10] MEDS: Mometasone/Formoter 100/5 MDI INH SCH ×2 (07:56→19:30)
[2019-10-10] MEDS ORDERED: CEFEPIME ADVAN IVPB SCH ×2 (09:00→23:23)
[2019-10-10] MEDS: Heparin 5000 UNITS/ML 1 mL VIAL SUBCUT SCH ×3 (10:06→23:01)
[2019-10-10] MEDS: NS 0.9% 1000 ml BAG 1,000 ML IV SCH (17:06)
[2019-10-10 18:30] LABS: Complement C3 114 mg/dL (75 - 175)
[2019-10-11] MEDS: CMCS:Rosuvastatin 5 mg TAB (NF) PO SCH (00:27)
[2019-10-11] MEDS: Heparin 5000 UNITS/ML 1 mL VIAL SUBCUT SCH ×2 (05:58→13:41)
[2019-10-11] MEDS: SPIRIVA Respimat (tiotropium) 2.5 mcg/inh Inhaler INH SCH ×2 (07:15→09:08)
[2019-10-11] MEDS: Mometasone/Formoter 100/5 MDI INH SCH ×2 (07:15→19:33)
[2019-10-11 11:23] LABS: ABS Eosinophils 0.1 10^3/ul (0-0.6); ABS Lymphocytes 0.6 10^3/ul (1.0-4.8); ABS Monocytes 0.3 10^3/ul (0-0.8); Eosinophil % 1.4 %; Hematocrit 27 % (35-47); Hemoglobin 8.8 g/dL (12.0-16.0); Lymphocyte % 14.2 %; Mean Corpuscular HGB Conc 32 g/dL (31-36); Mean Corpuscular Hemoglobin 29 pg (27-31); Mean Corpuscular Volume 90 fL (80-97); Mean Platelet Volume 7.6 fL (7.4-10.4); Nucleated Red Blood Cells % 0.1; Platelet Count 222 10^3/uL (150-450); Red Blood Count 3.04 10^6 /uL (3.70-4.87); Red Cell Distribution Width 17 % (10-15)
[2019-10-11 12:21] LABS: BUN/Creatinine Ratio 24.1 (8-20); EGFR African American 18.9 (>60); EGFR Non-African American 15.6 (>60); Potassium 4.4 mmol/L (3.5-5.0)
[2019-10-11 12:26] LABS: C-ANCA Negative (Negative)
[2019-10-11 14:07] LABS: Phospholipase A2 Receptor IFA Negative (Negative); Phospholipase A2 ReceptorELISA <2 RU/mL
[2019-10-11] MEDS: NS 0.9% 1000 ml BAG 1,000 ML IV SCH ×2 (15:23→19:32)
[2019-10-11 17:15] LABS: Ferritin 103.4 ng/mL (11-307)
[2019-10-11] MEDS ORDERED: Heparin DRIP 25,000 UNITS BAG 25,000 UNITS/500 ML BAG IV SCH (17:30)
[2019-10-11] MEDS ORDERED: Heparin 5000 UNITS/ML 1 mL VIAL IV SCH (18:00)
[2019-10-11] MEDS: cefTRIAXone 1 gm/50 mL NS BAG 1 GM/50 ML BAG IVPB SCH (19:47)
[2019-10-11] MEDS ORDERED: Heparin 5000 UNITS/ML 1 mL VIAL SUBCUT SCH (22:00)
[2019-10-12] MEDS: NS 0.9% 1000 ml BAG 1,000 ML IV SCH (06:20)
[2019-10-12 06:22] LABS: ABS Eosinophils 0.1 10^3/ul (0-0.6); ABS Lymphocytes 0.8 10^3/ul (1.0-4.8); ABS Monocytes 0.3 10^3/ul (0-0.8); Eosinophil % 2.4 %; Hematocrit 27 % (35-47); Hemoglobin 8.9 g/dL (12.0-16.0); Lymphocyte % 18.6 %; Mean Corpuscular HGB Conc 32 g/dL (31-36); Mean Corpuscular Hemoglobin 29 pg (27-31); Mean Corpuscular Volume 89 fL (80-97); Mean Platelet Volume 7.3 fL (7.4-10.4); Nucleated Red Blood Cells % 0.1; Platelet Count 235 10^3/uL (150-450); Red Blood Count 3.06 10^6 /uL (3.70-4.87); Red Cell Distribution Width 16 % (10-15); White Blood Count 4.4 10^3/uL (3.5-10.8)
[2019-10-12 06:38] LABS: Albumin 2.9 g/dL (3.2-5.2); Calcium 7.7 mg/dL (8.6-10.3); EGFR African American 28.4 (>60); EGFR Non-African American 23.5 (>60); Magnesium 1.6 mg/dL (1.9-2.7); Potassium 4.5 mmol/L (3.5-5.0); Total Bilirubin 0.2 mg/dL (0.2-1.0); Total Protein 5.9 g/dL (6.4-8.9)
[2019-10-12] MEDS: Mometasone/Formoter 100/5 MDI INH SCH ×2 (08:07→19:34)
[2019-10-12] MEDS: SPIRIVA Respimat (tiotropium) 2.5 mcg/inh Inhaler INH SCH (08:07)
[2019-10-12] MEDS ORDERED: Magnesium Sulfate 2 gm BAG 2 GM/50 ML BAG IVPB ONE (08:27)
[2019-10-12] MEDS ORDERED: Naloxone 0.4 mg VIAL 0.4 mg/ml 1 ml VIAL IV PRN (11:03)
[2019-10-12] MEDS ORDERED: Iohexol 180 (CONTRAST) 10 ML SDV IV ONE (11:26)
[2019-10-12] MEDS ORDERED: fentaNYL 100 mcg/2 ml 50 MCG/ML VIAL ONE (11:45)
[2019-10-12] MEDS ORDERED: Lidocaine 2% JELLY 20 ML (for OR use) ONE (11:52)
[2019-10-12] MEDS ORDERED: Ondansetron 4 mg VIAL 2 MG/ML 2 ml VIAL ONE (12:01)
[2019-10-12] MEDS ORDERED: Propofol 10 MG/ML 20 ML BTL ONE (12:01)
[2019-10-12] MEDS: Heparin 5000 UNITS/ML 1 mL VIAL SUBCUT SCH ×2 (14:37→21:23)
[2019-10-12] MEDS: cefTRIAXone 1 gm/50 mL NS BAG 1 GM/50 ML BAG IVPB SCH (20:52)
[2019-10-13] MEDS: NS 0.9% 1000 ml BAG 1,000 ML IV SCH (01:09)
[2019-10-13] MEDS: Heparin 5000 UNITS/ML 1 mL VIAL SUBCUT SCH (05:27)
[2019-10-13] MEDS: SPIRIVA Respimat (tiotropium) 2.5 mcg/inh Inhaler INH SCH (07:49)
[2019-10-13] MEDS: Mometasone/Formoter 100/5 MDI INH SCH ×2 (07:49→19:23)
[2019-10-13 08:02] LABS: Hematocrit 27 % (35-47); Hemoglobin 8.8 g/dL (12.0-16.0); Mean Corpuscular HGB Conc 33 g/dL (31-36); Mean Corpuscular Hemoglobin 30 pg (27-31); Mean Corpuscular Volume 90 fL (80-97); Mean Platelet Volume 7.5 fL (7.4-10.4); Platelet Count 231 10^3/uL (150-450); Red Blood Count 2.95 10^6 /uL (3.70-4.87); Red Cell Distribution Width 17 % (10-15); White Blood Count 4.5 10^3/uL (3.5-10.8)
[2019-10-13 08:17] LABS: BUN/Creatinine Ratio 23.7 (8-20); Calcium 7.8 mg/dL (8.6-10.3); EGFR African American 39.9 (>60); Magnesium 1.7 mg/dL (1.9-2.7); Potassium 4.6 mmol/L (3.5-5.0)
[2019-10-13] MEDS ORDERED: Magnesium Sulfate 2 gm BAG 2 GM/50 ML BAG IVPB ONE (08:26)
[2019-10-13 09:27] LABS: ABS Eosinophils 0.1 10^3/ul (0-0.6); ABS Lymphocytes 0.9 10^3/ul (1.0-4.8); ABS Monocytes 0.3 10^3/ul (0-0.8); Eosinophil % 1.4 %; Lymphocyte % 19.2 %; Nucleated Red Blood Cells % 0.1
[2019-10-13] MEDS: cefTRIAXone 1 gm/50 mL NS BAG 1 GM/50 ML BAG IVPB SCH (20:14)
[2019-10-14] MEDS: CMCS:Rosuvastatin 5 mg TAB (NF) PO SCH (03:03)
[2019-10-14 06:11] LABS: Calcium 7.9 mg/dL (8.6-10.3); EGFR African American 43.2 (>60); EGFR Non-African American 35.7 (>60); Magnesium 1.9 mg/dL (1.9-2.7); Potassium 4.5 mmol/L (3.5-5.0)
[2019-10-14] MEDS: Mometasone/Formoter 100/5 MDI INH SCH ×2 (07:54→19:58)
[2019-10-14] MEDS: SPIRIVA Respimat (tiotropium) 2.5 mcg/inh Inhaler INH SCH (07:58)
[2019-10-14] MEDS ORDERED: CMCS:Rosuvastatin 5 mg TAB (NF) PO SCH (09:00)
[2019-10-14 15:37] LABS: Urine Kappa Total Light Chain 5.3 mg/dL (<0.9000); Urine Kappa/Lambda Light Chain 1.57
[2019-10-14 17:18] LABS: Albumin 2.2 g/dL (3.4-4.7); Albumin/Globulin Ratio 0.68; Gamma Globulin 1.1 g/dL (0.6-1.6); Total Protein(PEP) 5.4 g/dL (6.3 - 7.9)
[2019-10-14] MEDS: cefTRIAXone 1 gm/50 mL NS BAG 1 GM/50 ML BAG IVPB SCH (17:53)
[2019-10-14] MEDS: Sacubitril/Valsartan 49/51(NF) TAB PO SCH (19:21)
[2019-10-15 07:36] LABS: Hematocrit 27 % (35-47); Mean Corpuscular HGB Conc 33 g/dL (31-36); Mean Corpuscular Hemoglobin 30 pg (27-31); Mean Corpuscular Volume 90 fL (80-97); Platelet Count 285 10^3/uL (150-450); Red Blood Count 3.05 10^6 /uL (3.70-4.87); Red Cell Distribution Width 16 % (10-15)
[2019-10-15] MEDS: Mometasone/Formoter 100/5 MDI INH SCH (07:42)
[2019-10-15] MEDS: SPIRIVA Respimat (tiotropium) 2.5 mcg/inh Inhaler INH SCH (07:42)
[2019-10-15 07:55] LABS: BUN/Creatinine Ratio 14.2 (8-20); Calcium 8.1 mg/dL (8.6-10.3); EGFR African American 49.1 (>60); EGFR Non-African American 40.6 (>60); Potassium 3.8 mmol/L (3.5-5.0)
[2019-10-15] MEDS: Sacubitril/Valsartan 49/51(NF) TAB PO SCH (08:07)
[2019-10-15 09:12] LABS: ABS Eosinophils 0.2 10^3/ul (0-0.6); ABS Lymphocytes 1.1 10^3/ul (1.0-4.8); ABS Monocytes 0.4 10^3/ul (0-0.8); Eosinophil % 4.7 %; Lymphocyte % 22.5 %; Nucleated Red Blood Cells % 0.1
[2019-10-15 16:15] VITALS: BP 142/74
== END 2019-10-15 16:30 | disposition home or self-care (01) | DRG 854 ==
LOC: ED 19:03 → MED 23:07
PROVIDERS: ADMIT Internal Medicine; ATTEND Internal Medicine

== ENCOUNTER 2021-03-14 23:12 | Inpatient (IN) ==
[2021-03-15 02:16] LABS: Urine Appearance Cloudy; Urine Bilirubin Negative (Negative); Urine Blood 1+ (Negative); Urine Color Yellow; Urine Glucose Negative (Negative); Urine Ketones Negative (Negative); Urine Nitrite Positive (Negative); Urine Protein 2+(100 mg/dL) (Negative); Urine Specific Gravity 1.011 (1.002-1.030); Urine Urobilinogen Negative (Negative)
[2021-03-15 02:20] LABS: Urine Bacteria 1+ (Absent); Urine Red Blood Cell Trace(0-2/hpf) (Absent); Urine Squamous Epithelial Cell Present (Absent); Urine White Blood Cell 2+(11-20/hpf) (Absent)
[2021-03-15 03:10] LABS: ABS Eosinophils 0.1 10^3/ul (0-0.6); ABS Lymphocytes 1.3 10^3/ul (1.0-4.8); ABS Monocytes 0.4 10^3/ul (0-0.8); ABS Neutrophils 5.1 10^3/ul (1.5-7.7); Hematocrit 47 % (35-47); Hemoglobin 14.9 g/dL (12.0-16.0); Lymphocyte % 18.8 %; Mean Corpuscular HGB Conc 32 g/dL (31-36); Mean Corpuscular Hemoglobin 29 pg (27-31); Mean Corpuscular Volume 90 fL (80-97); Mean Platelet Volume 7.2 fL (7.4-10.4); Platelet Count 182 10^3/uL (150-450); Red Blood Count 5.16 10^6 /uL (3.70-4.87); Red Cell Distribution Width 15 % (10-15); White Blood Count 6.9 10^3/uL (3.5-10.8)
[2021-03-15 03:25] LABS: Albumin 3.9 g/dL (3.2-5.2); Albumin/Globulin Ratio 1.2 (1-3); Calcium 9.4 mg/dL (8.6-10.3); Globulin 3.3 g/dL (2-4); Potassium 4.2 mmol/L (3.5-5.0); Total Bilirubin 0.5 mg/dL (0.2-1.0); Total Protein 7.2 g/dL (6.4-8.9); eGFR CKD-EPI 31.3 (>60)
[2021-03-15] MEDS ORDERED: Al Hydrox/Mg Hydrox/Simet LIQ 30 ML UDC PO PRN (11:52)
[2021-03-15] MEDS ORDERED: Albuterol HFA INHALER 8 gm MDI INH PRN (12:00)
[2021-03-15] MEDS ORDERED: cefTRIAXone 1 gm/50 mL NS BAG 1 GM/50 ML BAG IVPB SCH (12:11)
[2021-03-15] MEDS ORDERED: Heparin 5000 UNITS/ML 1 mL VIAL SUBCUT SCH (14:00)
[2021-03-15] MEDS: Potassium Chlor 20 meq TAB.ER PO SCH (15:20)
[2021-03-15] MEDS: CMCS: FLUTICAS/UMECLI/VILANT 100-62.5-25 MDI (NF) INH SCH (15:21)
[2021-03-15] MEDS: cefTRIAXone 1 gm/50 mL NS BAG 1 GM/50 ML BAG IVPB SCH (18:11)
[2021-03-16 06:46] LABS: ABS Eosinophils 0.1 10^3/ul (0-0.6); ABS Lymphocytes 1.3 10^3/ul (1.0-4.8); ABS Monocytes 0.3 10^3/ul (0-0.8); ABS Neutrophils 3.8 10^3/ul (1.5-7.7); Eosinophil % 1.9 %; Hematocrit 40 % (35-47); Hemoglobin 12.6 g/dL (12.0-16.0); Lymphocyte % 23.2 %; Mean Corpuscular HGB Conc 32 g/dL (31-36); Mean Corpuscular Hemoglobin 29 pg (27-31); Mean Corpuscular Volume 90 fL (80-97); Mean Platelet Volume 7.6 fL (7.4-10.4); Nucleated Red Blood Cells % 0.1; Platelet Count 173 10^3/uL (150-450); Red Blood Count 4.39 10^6 /uL (3.70-4.87); Red Cell Distribution Width 15 % (10-15); White Blood Count 5.5 10^3/uL (3.5-10.8)
[2021-03-16 06:53] LABS: Calcium 8.9 mg/dL (8.6-10.3); Potassium 4.2 mmol/L (3.5-5.0); eGFR CKD-EPI 35.6 (>60)
[2021-03-16] MEDS: CMCS: FLUTICAS/UMECLI/VILANT 100-62.5-25 MDI (NF) INH SCH (08:41)
[2021-03-16] MEDS ORDERED: Flu vaccine *QUAD* 2021-22* 0.5 ML SYRINGE IM ONE (09:00)
[2021-03-16] MEDS: Potassium Chlor 20 meq TAB.ER PO SCH (10:43)
[2021-03-16] MEDS: cefTRIAXone 1 gm/50 mL NS BAG 1 GM/50 ML BAG IVPB SCH (18:08)
[2021-03-17] MEDS: CMCS: FLUTICAS/UMECLI/VILANT 100-62.5-25 MDI (NF) INH SCH (07:44)
[2021-03-17] MEDS: Potassium Chlor 20 meq TAB.ER PO SCH (10:07)
[2021-03-17] MEDS: Potassium Chloride LIQUID 20 MEQ/15 ML LIQUID PO SCH (10:31)
[2021-03-17] MEDS: cefTRIAXone 1 gm/50 mL NS BAG 1 GM/50 ML BAG IVPB SCH (17:23)
[2021-03-18] MEDS: CMCS: FLUTICAS/UMECLI/VILANT 100-62.5-25 MDI (NF) INH SCH (07:31)
[2021-03-18] MEDS: Potassium Chloride LIQUID 20 MEQ/15 ML LIQUID PO SCH (08:35)
[2021-03-18] MEDS ORDERED: COVID-19 VACCINE, MRNA(PFIZER)/PF 30 MCG/0.3 ML IM ONE (10:56)
[2021-03-18 12:03] VITALS: BP 157/69
== END 2021-03-18 13:52 | DRG 563 ==
LOC: ED 23:12 → EDHOLD 23:12 → SUATTDRO 03-15 12:20 → SSU 03-15 13:20 → SUATTDRO 03-16 16:00
PROVIDERS: ADMIT Internal Medicine; ATTEND Student in an Organized Health Care Education/Training Program